=== PATIENT | female | born 2000 | race Caucasian/White ===

== ENCOUNTER → 2018-03-31 10:09 | Outpatient (CLI) | payer MEDICAID, SELFPAY ==
--- NOTE | 2018-03-31 10:12 | RAD_ITS ---
STUDY: X-RAY - RIGHT KNEE REASON FOR EXAM: Chronic anterior knee pain. TECHNIQUE: 4 view(s) of the knee. COMPARISON: Radiographs 02/13/2014. FINDINGS: Normal visualized distal femur. Normal visualized proximal tibia and fibula. Normal proximal tibiofibular articulation. Normal medial femorotibial compartment. Normal lateral femorotibial compartment. Normal patellofemoral articulation. The soft tissue structures are unremarkable. RAD/Knee 4 or More Views IMPRESSION: Normal x-ray examination of the right knee. Electronically Signed: Kian Stephenson MD at 16:00 EDT Tel , Service support ,
== END ==
PROVIDERS: Family Provider Pediatrics; PCP Pediatrics; Visit Provider Orthopaedic Surgery
DX: M25.561 Pain in right knee (principal)
CPT/HCPCS: 73564

== ENCOUNTER 2018-04-28 11:00 | Outpatient (RCR) | payer MEDICAID, SELFPAY ==
--- NOTE | 2018-04-06 11:03 | HP.PTEVAL ---
Patient's Visit Information CHRISTINA FREIRE is a 18 year old F referred to Physical Therapy by Delores Pina DO with a diagnosis of PFS bilateral /Inferior pole patella tendinosis. Date of Evaluation: 04/06/18 Physical Therapist: Dino Lucio PT, - Visit Plan Frequency: 2x /Week Duration: 4 Weeks Plan: GRADED PROGRESSION PRE'S QUAD/HAMS/HIP OPEN/CLOSED,PROPRIOCEPTION,US/CP. FLEXABLITY - Subjective Subjective: This 18 y/o female presents to physical therapy with PFS bilateral inferior patella tendinosis.This patient has h/o patella pain about one year with prior PT. Symptoms worse with standing,squatting,stairs ,kneeling. Pain located on inferior pole right worse than left. Denies parathesia/tingling. Patient sleeping okay. Patient does pain one step at time. Right knee ocassionally pops and clicks. VOCATION: [employer]. SOCIAL: single - Pain Right Knee Pain Intensity (Out of 10): 6 Pain Intensity Range: 10 - Objective POSTURE: patella kyra,genu recurvatum. PALAPTION: tender patella tendon. NEURO: intcat. GAIT: normal aron. AROM: knee flexion 0-140 degrees supine. FLEXABLITY: quads/hams /I-T BAND WFL. MMT: quads/VMO right 4-/5,left 4/5 hams 4/5,hip abd/add/ext 4-/5. PROPRIOCEPTION: decreased. PATELLA TRACKING: lateral [facility] affect - Special Tests R Knee Jony - Meniscus: Negative R Knee Apley - Meniscus: Negative R Knee Valgus - MCL: Negative R Knee Varus - LCL: Negative R Knee Patellar Apprehension - PFS: Positive R Knee Patellar Grind - PFS: Positive R Knee Medial Patellar Plica - Plica Syndrome: Negative L Knee Jony - Meniscus: Negative L Knee Patellar Apprehension - PFS: Positive L Knee Patellar Grind - PFS: Positive L Knee Medial Patellar Plica - Plica Syndrome: Negative - Goals Goal 1:: Patient to be Independant with HEP Goal Time Frame: 4-6 Weeks Goal 2:: Patient to decrease pain by 60% or greater for function ADLS Goal Time Frame: 4-6 Weeks Goal 3:: Patient increase strength quads/VMO to 4/5 to improve function and patella function Goal Time Frame: 4-6 Weeks Goal 4:: Patient be able to perform stairs,squatting ,ADL'S with min to no limitation Goal Time Frame: 4-6 Weeks Goal 5:: Improve proprioception and motor control to improve function Goal Time Frame: 4-6 Weeks - Rehabilitation Potential Physical Therapy Diagnosis: This patient has bilateral patella femoral syndrome with weakness quads/pain patella tendon,poor tracking with popping affects function with stairs,squats thus benifit from skilled PT Rehabilitation Potential: Good - Anticipated Interventions Patient/Client Instruction: Educate patient on: Condition, Plan of Care For the Purpose of:: To decrease pain, To improve muscle performance and motor function, To improve ability to perform ADL's, To increase tolerance to activity/condition/position, To improve ability of physical actions for home/community/work/leisure, To improve health of tissue, To decrease soft tissue restriction, To increase flexibility/ROM, To improve health and function, To improve ability to perform tasks related to life management Therapeutic Exercise to Include: Strength training, Postural training, Flexibilty training Comment: PRE HIP/KNEE For the Purpose of:: To decrease pain, To improve muscle performance and motor function, To increase tolerance to activity/condition/position, To improve performance and independence with ADL's, To improve ability of physical actions for home/community/work/leisure, To improve health of tissue, To decrease soft tissue restriction, To improve health and function, To improve ability to perform tasks related to life management TENS: Yes IF ES: Yes Cryotherapy (ice pack, ice massage): Yes Thermo therapy (hot pack): Yes Ultrasound (thermal/non thermal): Yes For the Purpose of:: To decrease pain, To increase ROM, To improve muscle performance and motor function, To increase tolerance to activity/condition/position, To improve ability of physical actions for home/community/work/leisure, To improve health of tissue, To decrease soft tissue restriction, To increase flexibility/ROM, To improve ability to perform tasks related to life management Thank you for the opportunity to evaluate your patient. For Medicare and Medicare HMO plans, please review the plan of care and approve it. It will need to be FAXED BACK to us at [phone] for Medicare purposes. Please let me know if there are questions or concerns regarding this plan of care. Physician Signature: Date:
--- NOTE | 2018-08-15 14:06 | HP.PT.NRP ---
HP - Discharge Summary (1) - Patient Information CHRISTINA FREIRE was seen in my office for initial evaluation on 04/06/18. The following Plan of Care was established for this patient: Initial Frequency: 2x /Week Initial Duration: 4 Weeks - Anticipated Interventions Patient/Client Instruction: Educate patient on: Condition, Plan of Care For the Purpose of:: To decrease pain, To improve muscle performance and motor function, To improve ability to perform ADL's, To increase tolerance to activity/condition/position, To improve ability of physical actions for home/community/work/leisure, To improve health of tissue, To decrease soft tissue restriction, To increase flexibility/ROM, To improve health and function, To improve ability to perform tasks related to life management Therapeutic Exercise to Include: Strength training, Postural training, Flexibilty training For the Purpose of:: To decrease pain, To improve muscle performance and motor function, To increase tolerance to activity/condition/position, To improve performance and independence with ADL's, To improve ability of physical actions for home/community/work/leisure, To improve health of tissue, To decrease soft tissue restriction, To improve health and function, To improve ability to perform tasks related to life management TENS: Yes IF ES: Yes Cryotherapy (ice pack, ice massage): Yes Thermo therapy (hot pack): Yes Ultrasound (thermal/non thermal): Yes For the Purpose of:: To decrease pain, To increase ROM, To improve muscle performance and motor function, To increase tolerance to activity/condition/position, To improve ability of physical actions for home/community/work/leisure, To improve health of tissue, To decrease soft tissue restriction, To increase flexibility/ROM, To improve ability to perform tasks related to life management This patient was last seen in our office 04/28/18. Pertinent comments regarding their Physical therapy will appear below: Patient seen for patella tendonitis focusing on strengthening ,proprioception. Patient met goals thus is d/c. At this point I will be discontinuing this patient from physical therapy. I would be happy to see this patient again in the future if found appropriate by the physician. Thank you! Dino Lucio, PT,
== END 2018-04-28 19:00 | disposition home or self-care (01) ==
LOC: PT 11:00
PROVIDERS: Family Provider Pediatrics; PCP Pediatrics; Visit Provider Orthopaedic Surgery
DX: M22.2X2 Patellofemoral disorders, left knee (principal); M22.2X1 Patellofemoral disorders, right knee; M76.50 Patellar tendinitis, unspecified knee
CPT/HCPCS: 97110; 97161

== ENCOUNTER → 2020-02-20 13:40 | Outpatient (CLI) | payer MEDICAID, SELFPAY ==
[2020-02-20 13:13] VITALS: BMI 36.1
[2020-02-20 15:10] LABS: HIV - WCH Non-Reactive (Nonreactive)
[2020-02-22 01:57] LABS: Rapid Plasmin Reagin (RPR) NONREACTIVE (NONREACTIVE)
[2020-02-23 09:07] LABS: HCV Quant. RNA PCR HCV Not Detected IU/mL (.)
[2020-02-23 13:22] LABS: HSV 1 IgG < 0.91 index (0.00-0.90)
== END ==
PROVIDERS: PCP Pediatrics; Referring Provider Nurse Practitioner Women's Health; Visit Provider Nurse Practitioner Women's Health
DX: Z11.3 Encounter for screening for infections with a predominantly sexual mode of transmission (principal)
CPT/HCPCS: 36415; 86592; 86695; 86696; 86703; 87522

== ENCOUNTER → 2020-03-05 08:27 | Outpatient (CLI) | payer MEDICAID, SELFPAY ==
[2020-03-05 08:26] VITALS: BMI 35.2
--- NOTE | 2020-03-05 08:28 | RAD_ITS ---
STUDY: X-RAY - LEFT KNEE REASON FOR EXAM: Bilateral knee pain, no specific injury. TECHNIQUE: 4 view(s) of the knee. COMPARISON: None. FINDINGS: Normal visualized distal femur. Normal visualized proximal tibia and fibula. Normal proximal tibiofibular articulation. Normal medial femorotibial compartment. Normal lateral femorotibial compartment. Normal patellofemoral articulation. The soft tissue structures are unremarkable. RAD/Knee 4 or More Views IMPRESSION: Normal x-ray examination of the left knee. Electronically Signed: Kian Stephenson MD at 10:48 EDT Tel , Service support ,
--- NOTE | 2020-03-05 08:28 | RAD_ITS ---
STUDY: X-RAY - RIGHT KNEE REASON FOR EXAM: Bilateral knee pain, no specific injury. TECHNIQUE: 4 view(s) of the knee. COMPARISON: Radiographs 03/31/2018. FINDINGS: Normal visualized distal femur. Normal visualized proximal tibia and fibula. Normal proximal tibiofibular articulation. Normal medial femorotibial compartment. Normal lateral femorotibial compartment. Normal patellofemoral articulation. The soft tissue structures are unremarkable. RAD/Knee 4 or More Views IMPRESSION: Normal x-ray examination of the right knee. Electronically Signed: Kian Stephenson MD at 10:53 EDT Tel , Service support ,
== END ==
PROVIDERS: PCP Pediatrics; Referring Provider Orthopaedic Surgery; Visit Provider Orthopaedic Surgery
DX: M25.561 Pain in right knee (principal); M25.562 Pain in left knee
CPT/HCPCS: 73564

== ENCOUNTER 2020-03-25 11:00 | Outpatient (RCR) | payer MEDICAID, SELFPAY ==
[2020-03-05 08:26] VITALS: BMI 35.2
--- NOTE | 2020-03-06 11:54 | HP.PTEVAL_ITS ---
Patient's Visit Information CHRISTINA FREIRE is a 20 year old F referred to Physical Therapy by Dr. Delores Pina DO with a diagnosis of Bilateral Knee pain and Right Achilles Tendonitis. Date of Evaluation: 03/06/20 Physical Therapist: Paola Steiner DPT - Visit Plan Frequency: 2x /Week Duration: 3 Weeks Plan: Focus on LE and core strength/stabilization- US as needed. HEP Given 03/06: Bridge with SLR, clams, plank, step up, step down, HS stretch, Gastroc stretch - Subjective Patient reports that her knees are bothering her- right is worse than left. They have been bothering her for years. Saw Dr. Pina who took x-rays and told her she needs to strengthen her knees. She is having right ankle pain as well- needs a home exercise program to be able to do at home. Work: [employer]- she is is walking, standing- wearing unsupportive shoes. Pain is located along the entire patella- pain radiates to the ankle on the right blake- the left does bother her down the leg. Worst: 9/10 Agg: on it for to long without cici ing a break (15 minutes) Best: 0/10 Eases: sleep, sitting down. Sleep: not disturbed. Did not have anything that flared her knees but when she was pulling carts she would hit the back of her ankle and it would bruise (6 months). Does have N/T in the along the achilles. Feels like her knees have been hurting worse as she is on them more for work. PMHx: none Meds: none. - Objective Posture: FH, RS- can correct with verbal cues but does not maintain. Gait: no deviation noted. Stairs: asc/desc 8 recip with 1 HR- asc uses rail for propulsion and desc is uncontrolled. HR/TR: able with UE A. SLS: unable without UE A. Palpation: tender along medial and lateral . Observation: no swelling noted bilaterally. ROM: 0-120 bilateral knees. Strength: Ankle: 5/5, Knee: 4+/5, Hip: 4/5 throughout Core: poor. Flex:HS: mild, Gastroc: mod. - Goals Goal 1:: Patient will be I with HEP and progression Goal Time Frame: 4-6 Weeks Goal 2:: Patient will SLS for 30 sec without LOB Goal Time Frame: 4-6 Weeks Goal 3:: Patient will maintain proper posture t/o tx session to demo increased core s/s Goal Time Frame: 4-6 Weeks Goal 4:: Patient will report 0/10 pain for 1 week Goal Time Frame: 4-6 Weeks Goal 5:: Patient will demo 5/5 strength in LE Goal Time Frame: 4-6 Weeks - Rehabilitation Potential Physical Therapy Diagnosis: Patient presents with hypomobility- she has decreased activitiy tolerance- she demo's decreased strength, flex and muscular endurance leading to poor posture and increased pain with ADL and work related tasks Rehabilitation Potential: Fair - Anticipated Interventions Patient/Client Instruction: Educate patient on: Benefits of Fitness Program Therapeutic Exercise to Include: Strength training, Endurance training, Balance training, Coordination, Agility training, Body mechanics, Postural training, Flexibilty training, Gait and locomotor training, Neuromotor development, Passive ROM, Active ROM, Dynamic Lumbar Stabilization, Scapular Strength/Sta bilization For the Purpose of:: To improve muscle performance and motor function TENS: Yes Cryotherapy (ice pack, ice massage): Yes Thermo therapy (hot pack): Yes Ultrasound (thermal/non thermal): Yes For the Purpose of:: To decrease pain Thank you for the opportunity to evaluate your patient. For Medicare and Medicare HMO plans, please review the plan of care and approve it. It will need to be FAXED BACK to us at [phone] for Medicare purposes. For Medicare only, by signing this I certify the plan of care. Please let me know if there are questions or concerns regarding this plan of care. Physician Signatu re: Date:
--- NOTE | 2020-03-25 11:40 | HP.PTDCSUM ---
It has been my pleasure to treat CHRISTINA FREIRE referred by Dr. Delores Pina DO, with the diagnosis of Bilateral Knee pain and Right Achilles Tendonitis for a total of 5 visit(s). Discharge Date: Please see the following information for a summary of their discharge status. Subjective: Her knees are better but not great- feels like she can do them independently and does not need therapy. RLE Pain Intensity (Out of 10): 4 LLE Pain Intensity (Out of 10): 1 % Improvement: 60 Objective/Function: Posture: FH, RS- can correct with verbal cues but does not maintain. Gait: no deviation noted. Stairs: asc/desc 8 recip no HR desc is uncontrolled. HR/TR: able with UE A. SLS: 30 sec each side mild imbalance. Palpation: tender along medial and lateral . Observation: no swelling noted bilaterally. ROM: 0-120 bilateral knees. Strength: Ankle: 5/5, Knee: 5/5, Hip: 4+/5 throughout Core: poor. Flex:HS: mild, Gastroc: mod. Goal 1:: Patient will be I with HEP and progression Goal Progress: Goal Met Goal 2:: Patient will SLS for 30 sec without LOB Goal Progress: Goal Met Goal 3:: Patient will maintain proper posture t/o tx session to demo increased core s/s Goal 4:: Patient will report 0/10 pain for 1 week Goal Progress: Progressing Goal 5:: Patient will demo 5/5 strength in LE Goal Progress: Progressing Plan: Discharge to I HEP If there are questions or concerns regarding this patient's physical therapy, please feel free to call me at [phone]. Thank you for the referral of this patient. Sincerely, Paola Steiner DPT
== END 2020-03-25 14:06 | disposition home or self-care (01) ==
LOC: PT 11:00
PROVIDERS: PCP Pediatrics; Referring Provider Orthopaedic Surgery; Visit Provider Orthopaedic Surgery
DX: M76.61 Achilles tendinitis, right leg (principal); M22.2X1 Patellofemoral disorders, right knee; M22.2X2 Patellofemoral disorders, left knee
CPT/HCPCS: 97035; 97110; 97161; 97164

== ENCOUNTER → 2020-04-10 | Outpatient (CLI) | payer MEDICAID, SELFPAY ==
[2020-04-10 10:26] VITALS: BMI 35.2
[2020-04-10 17:37] LABS: Chlamydia Trachomatis by PCR Negative (Negative); Neisserai gonorrhoeae by PCR Negative (Negative); Probe Check PASS; Sample Adequacy Control PASS; Specimen Processing Control PASS
[2020-04-15 17:36] LABS: HPV Reflexed? NOT INDICATED
== END | disposition home or self-care (01) ==
LOC: LABSPEC 13:15
PROVIDERS: PCP Pediatrics; Referring Provider Nurse Practitioner Women's Health; Visit Provider Nurse Practitioner Women's Health
DX: Z11.3 Encounter for screening for infections with a predominantly sexual mode of transmission (principal); Z12.4 Encounter for screening for malignant neoplasm of cervix
CPT/HCPCS: 87491; 87591; 88175; G0145

== ENCOUNTER 2021-04-25 23:33 | Emergency (ER) | payer MEDICAID, SELFPAY ==
[2020-04-10 10:26] VITALS: BMI 35.2
[2021-04-25 23:36] VITALS: BP 128/84; PULSE 114; RESP 26; TEMP 36.7; O2SAT 100; BMI 31.2
--- NOTE | 2021-04-26 01:32 | ED.RN ---
pt states she does not take medications daily for anxiety, states she was having issues with her asthma and that caused her anxiety to flare up. she doesn't see anybody for her anxiety and needs a refill on her inhaler.
[2021-04-26 01:36] VITALS: BP 99/60; PULSE 65; RESP 18; O2SAT 99
--- NOTE | 2021-04-26 01:36 | EX.ED.DYSGE1 ---
HPI History of Present Illness Chief Complaint: Anxiety Narrative Narrative: Patient states earlier she started having increased asthma symptoms as she was using her crutches to walk outdoors long distance relatively, she has Achilles tendinitis and plantar fasciitis; during this her asthma started flaring up, and continued, causing her to feel worse and given her anxiety. EMS was called, they gave her oxygen and transported her. On my evaluation now she feels back to normal. She has an albuterol inhaler but found out when she was symptomatic that it is and empty. Weather changes lately have been triggering symptoms off and on. No recent cough, congestion, fevers, chills. PFSH PFS Medical History Anxiety Asthma Asthma Home Medications albuterol sulfate 5 mg/mL(0.5 %) solution for nebulization 2.5 mg INHALATION TID-QID PRN 07/13/18 [History Last Taken Unknown] albuterol sulfate [Ventolin HFA] 1 - 2 puff INHALATION Q4H PRN PRN #1 inhaler 04/26/21 [Rx Last Taken Unknown] Allergy/AdvReac Type Severity Reaction Status Date / Time No Known Allergies Allergy Verified 04/25/21 23:36 Family History Grandmother Breast cancer Social History adopted: No housing: house number of children: 0 current occupational status: employed current occupation: [employer] sexually active: Yes Smoking Status: Never smoker second hand exposure: Yes alcohol intake: current alcohol intake frequency: holidays/special occasions only substance use type: does not use seatbelt use: always do you feel safe at home: Yes ROS ROS ED Constitutional Constitutional ED: Denies chills or fever(s) Eyes Eyes: Denies change in vision or diplopia ENT ENT ED: Denies rhinorrhea or sore throat Cardiovascular Cardiovascular: Denies chest pain or palpitations Respiratory/Chest Respiratory/Chest: Reports as per HPI, dyspnea and wheezing; Denies cough Gastrointestinal Gastrointestinal: Denies abdominal pain, diarrhea, nausea or vomiting Genitourinary Genitourinary ED: Denies dysuria or hematuria Musculoskeletal Musculoskeletal: Denies back pain or neck pain Integumentary Denies abscess or rash Neurologic Neurologic: Denies headache(s), paresthesias or weakness Psychiatric Psychiatric: Reports anxiety; Denies suicidal thoughts EXAM Physical Exam Const Vital Signs: 04/25/21 23:36 Temperature 98.0 F Temperature Source Temporal Pulse Rate 114 H Respiratory Rate 26 H Blood Pressure 128/84 H Blood Pressure Mean 98 Pulse Ox 100 Oxygen Delivery Method Room Air Positive well nourished, well developed and obese Constitutional Narrative: Well-appearing no distress conversive in full sentences, not tachypneic General Appearance ED: well developed and NAD Nutritional Appearance: obese HEENT Reports moist mucous membranes normocephalic and atraumatic Eyes PERRL and EOMs intact bilaterally Neck full ROM and supple Resp normal respiratory effort and clear to auscultation bilaterally Cardio regular rate, regular rhythm and no murmurs Back/Spine no CVA tenderness General Back: other FROM Extremity normal to inspection General Extremety ED: Negative for edema, pulses abnormal or tenderness General Extremity: Negative for edema or pulses abnormal Neuro oriented x3, CN's II-XII intact bilaterally and no sensory deficits noted Sensorium / Orientation: awake and alert Motor Exam: strength 5/5 throughout Psych mental status grossly normal, thought process normal, cooperative and affect normal Appearance: grossly normal Attitude: calm Skin no rashes or lesions noted and no wounds MDM MDM MDM Narrative Medical decision making narrative: Patient's lungs are clear, her vital signs are now normal, and she feels much better. She is agreeable to a prescription for an albuterol inhaler and outpatient follow-up, we discussed reasons to return. Discharge Plan Triage Chief Complaint: Anxiety ED Provider: Alberto Conklin Dx/Rx/DC Orders Clinical Impression: Asthma exacerbation, Anxiety attack Instructions: Asthma Prescriptions: New albuterol sulfate [Ventolin HFA] 1 INHALER inhaler 1 - 2 puff inhalation Q4H PRN PRN (Reason: Wheezing) Qty: 1 RF: 0 Continued albuterol sulfate 5 mg/mL solution for nebulization 2.5 mg INHALATION TID-QID PRN (Reason: Shortness Of Breath Or Wheezing) RF: 0 Discontinued methylprednisolone [Methylpred] 4 mg Tablets,Dose Pack See Rx Instructions .ROUTE .COMPLEX RF: 0 Primary Care Provider: Care Physician,No Primary Referrals: Angélica Zelaya [NON-STAFF] - As Needed Care Physician,No Primary [Primary Care Provider] - Disposition Disposition: Home, Self Care
== END 2021-04-26 01:48 | disposition home or self-care (01) ==
PROVIDERS: Emergency Provider Emergency Medicine
DX: J45.901 Unspecified asthma with (acute) exacerbation (principal); F41.1 Generalized anxiety disorder; E66.9 Obesity, unspecified; Z68.31 Body mass index [BMI] 31.0-31.9, adult; M76.60 Achilles tendinitis, unspecified leg; M72.2 Plantar fascial fibromatosis
CPT/HCPCS: 99282

== ENCOUNTER 2021-05-30 16:23 | Emergency (ER) | payer MEDICAID, SELFPAY ==
[2021-05-30 16:26] VITALS: BP 100/68; PULSE 99; RESP 17; TEMP 36.9; O2SAT 98; BMI 35.7
[2021-05-30 16:28] VITALS: BP 100/68; PULSE 99; RESP 17; TEMP 36.9; O2SAT 98
--- NOTE | 2021-05-30 16:59 | EDS_ITS ---
HPI History of Present Illness Chief Complaint: Edema Informant: patient Narrative Narrative: 21-year-old female presents to the emergency room with facial swelling. Patient states that last night she went to bed when she woke this morning she noticed some mild swelling and redness over her right maxillary face. She notes that before she went to bed last night she had some swelling of her eye which has resolved. She denies any dental pain. She denies any airway or swallowing issues. No dry mouth. She states that she is currently recovering from Covid [facility] Medical History Anxiety Asthma Asthma Home Medications albuterol sulfate 5 mg/mL(0.5 %) solution for nebulization 2.5 mg INHALATION TID-QID PRN 07/13/18 [History Last Taken Unknown] albuterol sulfate [Ventolin HFA] 1 - 2 puff INHALATION Q4H PRN PRN #1 inhaler 04/26/21 [Rx Last Taken Unknown] clindamycin HCl [Cleocin HCl] 300 mg PO Q6H #40 capsule 05/30/21 [Rx Last Taken Unknown] Allergy/AdvReac Type Severity Reaction Status Date / Time No Known Allergies Allergy Verified 05/30/21 16:24 Family History Grandmother Breast cancer Social History adopted: No housing: house number of children: 0 current occupational status: employed current occupation: [employer] sexually active: Yes Smoking Status: Never smoker second hand exposure: Yes alcohol intake: current alcohol intake frequency: holidays/special occasions only substance use type: does not use seatbelt use: always do you feel safe at home: Yes ROS ROS ED Constitutional Constitutional ED: Reports sweats; Denies chills or weight loss Eyes Eyes: Denies change in vision or diplopia ENT ENT ED: Reports other Details: See history of present illness ; Denies ear pain, rhinorrhea or sore throat Cardiovascular Cardiovascular: Denies chest pain, orthopnea, palpitations or racing heartbeat Respiratory/Chest Respiratory/Chest: Reports cough; Denies dyspnea or orthopnea Gastrointestinal Gastrointestinal: Denies abdominal pain, diarrhea, nausea or vomiting Genitourinary Genitourinary ED: Denies dysuria, hematuria or urinary frequency Musculoskeletal Musculoskeletal: Denies arthralgias or myalgias Integumentary Denies abscess or rash Neurologic Neurologic: Denies headache(s) or weakness Psychiatric Psychiatric: Denies anxiety, depression, suicidal ideation or suicidal thoughts Endocrine Endocrinology: Denies polydipsia, polyphagia or polyuria Allergic/Immunologic Allergic/Immunologic ED: Denies mouth swelling, tongue swelling or urticaria EXAM Physical Exam Const Vital Signs: 05/30/21 16:26 05/30/21 16:28 Temperature 98.4 F 98.4 F Temperature Source Temporal Temporal Pulse Rate 99 99 Respiratory Rate 17 17 Blood Pressure 100/68 100/68 Blood Pressure Mean 78 78 Pulse Ox 98 98 Oxygen Delivery Method Room Air Room Air Positive well nourished and well developed General Appearance ED: well developed HEENT Reports normocephalic, head/scalp atraumatic, TM's clear and moist mucous membranes HEENT Narrative: There is no focal dental decay or tenderness on tooth percussion. The right maxillary face demonstrates mild soft tissue swelling and slight erythema. Tympanic Membrane ED: Yes TM's clear Eyes PERRL and EOMs intact bilaterally Neck no lymphadenopathy, supple and no JVD Resp normal respiratory effort and clear to auscultation bilaterally Cardio regular rate, regular rhythm and no murmurs GI normal to inspection, nondistended, normoactive bowel sounds and non-tender Palpation: soft Back/Spine no CVA tenderness and normal ROM Extremity normal to inspection General Extremety ED: Negative for edema General Extremity: Negative for edema Neuro oriented x3 and CN's II-XII intact bilaterally Sensorium / Orientation: alert Motor Exam: strength 5/5 throughout Psych mental status grossly normal Mood & Affect: Negative for depressed or tearful Skin no rashes or lesions noted and no wounds MDM MDM MDM Narrative Medical decision making narrative: Patient advised this may be coming from a dental source and to monitor for any intraoral swelling or dental pain. In the interim we will place her on clindamycin which should give us some skin coverage but also oral olga coverage. Discharge Plan Triage Chief Complaint: Edema ED Provider: Dalton Chaney Dx/Rx/DC Orders Clinical Impression: Cellulitis of face Instructions: ED Cellulitis, Facial Prescriptions: New clindamycin HCl [Cleocin HCl] 300 MG capsule 300 mg PO Q6H Qty: 40 RF: 0 No Action albuterol sulfate 5 mg/mL solution for nebulization 2.5 mg INHALATION TID-QID PRN (Reason: Shortness Of Breath Or Wheezing) RF: 0 albuterol sulfate [Ventolin HFA] 1 INHALER inhaler 1 - 2 puff inhalation Q4H PRN PRN (Reason: Wheezing) Qty: 1 RF: 0 Primary Care Provider: Care Physician,No Primary Referrals: Driss Kendall MD [STAFF PHYSICIAN] - 1 Week if not improving Care Physician,No Primary [Primary Care Provider] - Disposition Disposition: Home, Self Care
== END 2021-05-30 17:25 | disposition home or self-care (01) ==
LOC: ED 17:15
PROVIDERS: Emergency Provider Emergency Medicine
DX: L03.211 Cellulitis of face (principal); J45.909 Unspecified asthma, uncomplicated
CPT/HCPCS: 99282

== ENCOUNTER 2022-07-28 16:47 | Outpatient (CLI) | payer MEDICAID, SELFPAY ==
[2022-07-31 04:07] LABS: Chlamydia By Nucleic Acid AMP Negative (Negative)
[2022-07-31 11:35] LABS: Gonococcus By Nucleic Acid AMP Negative (Negative)
== END 2022-07-28 23:59 | disposition home or self-care (01) ==
LOC: LABSPEC 16:48
PROVIDERS: Visit Provider Nurse Practitioner Women's Health
DX: Z11.3 Encounter for screening for infections with a predominantly sexual mode of transmission (principal)
CPT/HCPCS: 87491; 87591

== ENCOUNTER 2022-08-07 14:00 | Emergency (ER) | payer MEDICAID, SELFPAY ==
[2022-08-07 14:01] VITALS: BP 107/64; PULSE 71; RESP 18; TEMP 36.6; O2SAT 100; BMI 30.9
--- NOTE | 2022-08-07 15:27 | EDS_ITS ---
HPI History of Present Illness Chief Complaint: Dental Narrative Narrative: 22-year-old female presenting with dental pain. She states she had 2 wisdom teeth removed as well as another tooth on the left lower mandible and one upper tooth on the right. She states this was done on last . This was done by her dentist in [place]. She finished a course of ibuprofen 600 mg which was prescribed to her 3 times daily. She also finished of prescription for amoxicillin. She states that over the last couple of days after running out of this she has had intermittent facial swelling. She states the facial swelling appears to be in the morning. This resolves. No difficulty swallowing or breathing but states that it hurts to chew hard food. She is eating a soft diet. She is not had any fever, chills, nausea, vomiting. [facility] Medical History Anxiety Asthma Asthma Home Medications fluticasone propionate 110 mcg/actuation HFA aerosol inhaler gm inhalation 11/28/21 [History Last Taken Unknown] sertraline 50 mg tablet 75 mg PO DAILY 07/28/22 [History Last Taken Unknown] trazodone 50 mg tablet 50 mg PO DAILY 07/28/22 [History Last Taken Unknown] lidocaine HCl 2 % mucosal solution (Lidocaine Viscous) 1 applic mucous membrane TID PRN pain #100 mL 08/07/22 [Rx Last Taken Unknown] naproxen 500 mg tablet (Naprosyn) 500 mg PO BID PRN pain #20 tabs 08/07/22 [Rx Last Taken Unknown] Allergy/AdvReac Type Severity Reaction Status Date / Time No Known Allergies Allergy Verified 08/07/22 14:00 Family History Grandmother Breast cancer Social History adopted: No housing: house number of children: 0 current occupational status: employed current occupation: [employer] sexually active: Yes Smoking Status: Never smoker second hand exposure: Yes alcohol intake: current alcohol intake frequency: holidays/special occasions only substance use type: does not use seatbelt use: always do you feel safe at home: Yes ROS ROS ED Constitutional Constitutional ED: Denies chills or fever(s) Eyes Eyes: Denies change in vision ENT ENT ED: Reports other Details: Dental pain ; Denies rhinorrhea or sore throat Cardiovascular Cardiovascular: Denies chest pain or palpitations Respiratory/Chest Respiratory/Chest: Denies cough or dyspnea Gastrointestinal Gastrointestinal: Denies abdominal pain or constipation Genitourinary Genitourinary ED: Denies dysuria or hematuria Musculoskeletal Musculoskeletal: Denies arthralgias, back pain or neck pain Integumentary Denies abscess or Abrasions Neurologic Neurologic: Reports headache(s); Denies paresthesias Psychiatric Psychiatric: Denies anxiety or depression EXAM Physical Exam Const Vital Signs: 08/07/22 14:01 Temperature 97.8 F Temperature Source Temporal Pulse Rate 71 Respiratory Rate 18 Blood Pressure 107/64 Blood Pressure Mean 78 Pulse Ox 100 Oxygen Delivery Method Room Air Positive well nourished General Appearance ED: NAD HEENT HEENT Narrative: Bilateral wisdom teeth are extracted. Also tooth #19 was extracted. No evidence of swelling, erythema, drainage. Posterior oropharynx patent without stridor. Tongue is normal. No sublingual edema. No submandibular edema. No lymphadenopathy. Face is symmetric. Patient tolerating own secretions. No trismus Face and Sinus: sinuses nontender Mouth ED: Yes oral and palatal mucosa normal, Yes lips normal and Yes tongue normal Mouth: oral and palatal mucosa normal, lips normal and tongue normal Throat: posterior oropharynx normal Resp normal respiratory effort Cardio regular rate and regular rhythm Neuro oriented x3 and CN's II-XII intact bilaterally Sensorium / Orientation: alert Psych mental status grossly normal Skin no rashes or lesions noted MDM MDM MDM Narrative Medical decision making narrative: Patient presenting with intermittent swelling in the face which is worse in the morning. No systemic signs or symptoms. Her face is symmetric here on examination. I can see where her teeth were extracted and there is no evidence of dry socket there is no evidence of infection. Patient talking normally. She has no muffled voice, trismus, no lymphadenopathy or submandibular swelling. Tongue is normal and she is tolerating her own secretions. She is out of ibuprofen and we discussed using ibuprofen versus Naprosyn and she wants to try Naprosyn. I counseled her she can alternate Tylenol with this. She will be given viscous lidocaine to swish and spit as needed. She is to follow-up with her dentist. I do not believe she needs antibiotic today. Impression: 1. Postop dental pain Lab Data Attestation: I reviewed the patient's lab results. Discharge Plan Triage Chief Complaint: Dental ED Provider: Kyler Harris Dx/Rx/DC Orders Instructions: ED Dental Pain Prescriptions: New lidocaine HCl [Lidocaine Viscous] 2 % solution 1 applic mucous membrane TID PRN (Reason: pain) Qty: 100 0RF naproxen [Naprosyn] 500 mg tablet 500 mg PO BID PRN (Reason: pain) Qty: 20 0RF No Action Flovent HFA 110 mcg/actuation HFA aerosol inhaler inhalation sertraline 50 mg tablet 75 mg PO DAILY trazodone 50 mg tablet 50 mg PO DAILY Primary Care Provider: Karol Steel NP Referrals: Care Physician,No Primary [Non-Staff] - Disposition Disposition: Home, Self Care
[2022-08-07] MEDS: Naproxen 500 MG Tablet PO (15:42)
[2022-08-07 16:19] VITALS: BP 134/78; PULSE 78; RESP 18; TEMP 36.9; O2SAT 99
== END 2022-08-07 16:20 | disposition home or self-care (01) ==
PROVIDERS: Emergency Provider Student in an Organized Health Care Education/Training Program; PCP Nurse Practitioner Primary Care; Visit Provider Student in an Organized Health Care Education/Training Program
DX: K08.89 Other specified disorders of teeth and supporting structures (principal); R51.9 Headache, unspecified
CPT/HCPCS: 99283

== ENCOUNTER → 2023-12-23 | Outpatient (CLI) | payer MEDICAID, SELFPAY ==
[2023-12-23 13:05] LABS: hCG Titer Quant., Serum 27 mIU/mL (1-3)
== END | disposition home or self-care (01) ==
PROVIDERS: Referring Provider Obstetrics & Gynecology; Visit Provider Obstetrics & Gynecology
DX: N91.2 Amenorrhea, unspecified (principal)
CPT/HCPCS: 36415; 84702

== ENCOUNTER 2023-12-25 12:41 | Emergency (ER) | payer MEDICAID, SELFPAY ==
[2023-12-25 12:42] VITALS: BP 107/61; PULSE 77; RESP 16; TEMP 36; O2SAT 99; BMI 34.9
--- NOTE | 2023-12-25 13:09 | US_ITS ---
EXAM: US , TRANSVAGINAL CLINICAL INDICATION: vaginal bleeding TECHNIQUE: Real-time endovaginal obstetrical ultrasound of the maternal pelvis and a first trimester with image documentation. Transvaginal imaging was used for better evaluation of the fetus and adnexa. COMPARISON: No relevant prior studies available. FINDINGS: GESTATION: No evidence of intra or extrauterine gestational sac. UTERUS/CERVIX: Uterus measures 8.2 x 5.5 x 4.2 cm. Endometrial thickness of 16 mm. OVARIES: Normal. No mass. The right ovary measures 2.2 x 2.2 x 1.4 cm. The left ovary measures 3.4 x 2.3 x 2.4 cm. FREE FLUID: Physiological amount of free fluid noted within the pelvis. US/Transvaginal w/Preg US IMPRESSION: Thickened endometrium without evidence of an intra or extrauterine gestational sac. Correlate findings with hCG titers and/or follow-up ultrasound in 7-10 days. Electronically Signed: Breezy Darling MD at 14:12 EDT ,
[2023-12-25 13:28] LABS: Absolute Lymphocyte Count 3.77 X10^3/uL (0.83-4.51); Basophil# 0.08 X10^3/uL; Basophil% 0.6 % (0-1); Eosinophil# 0.25 X10^3/uL; Hemoglobin 11.6 g/dL (12.0-15.0); Lymphocyte # 3.77 X10^3/ul (0.83-4.51); Lymphocyte % 29.8 % (19-41); Mean Corp Hgb Conc 32.2 g/dL (32-36); Mean Platelet Vol. 9.8 fl (6.2-12.0); Monocyte# 0.53 X10^3/uL; Monocyte% 4.2 % (0-10); NRBC Flagged by Analyzer 0 % (0-5); Neutrophil # 7.95 X10^3/uL (2.7-7.7); Platelet Count 367 K/mm3 (150-450); RBC Distribution Width CV 13.2 % (11.6-14.6); RBC Distribution Width SD 41.4 fl (35.1-43.9); Red Blood Count 4.14 M/mm3 (4.2-5.4); White Blood Count 12.6 K/mm3 (4.4-11.0)
--- NOTE | 2023-12-25 13:34 | ED.VIS.FEGU ---
HPI <BATOOL Chen - Last Filed: 12/25/23 15:13> HPI - Female History of Present Illness Chief Complaint: Vag Bld, Preg Narrative Narrative: Patient is a 23-year-old female last known menstrual cycle was November 18, 2023, present to the emerged part with some lower abdominal cramping, spotting. Patient's first appointment with her [facility] is January 17, she did receive 2 quantitative hCG lab values in the last 3 days. Patient initial hCG was 27, repeat was 9. This is downtrending. Patient states he does have some lower abdominal cramping. She is here for evaluation [facility] <BATOOL Chen - Last Filed: 12/25/23 15:13> [facility] Medical History (Updated 12/25/23 @ 15:11 by BATOOL Chen) Anxiety Anxiety and depression Asthma Asthma Contact with and (suspected) exposure to other viral communicable diseases URI (upper respiratory infection) Home Medications multivitamin no.47-iron fum 27 mg-folate no.1 1 mg-dha 300 mg capsule (PNV-DHA) 1 cap PO DAILY 12/25/23 [History Last Taken Unknown] nitrofurantoin monohydrate/macrocrystals 100 mg capsule (Macrobid) 100 mg PO Q12H 5 days #10 caps 12/25/23 [Rx Last Taken Unknown] Allergy/AdvReac Type Severity Reaction Status Date / Time No Known Allergies Allergy Verified 12/25/23 12:46 Family History Grandmother Breast cancer Social History adopted: No housing: house number of children: 0 current occupational status: employed current occupation: [employer] sexually active: Yes Smoking Status: Never smoker second hand exposure: Yes alcohol intake: current alcohol intake frequency: holidays/special occasions only substance use type: does not use seatbelt use: always do you feel safe at home: Yes ROS <BATOOL Chen - Last Filed: 12/25/23 15:13> ROS ED ROS Narrative Constitutional: Negative for fever, chills, weight loss, weakness Eyes: Negative for vision loss, vision change, double vision ENT: Negative for any sore throat, ear pain, congestion Cardiovascular: Negative for any chest pain, tightness, palpitations Respiratory: Negative for any cough, sputum production, hemoptysis, dyspnea, dyspnea on exertion, orthopnea Gastrointestinal: Negative for any nausea, vomiting, diarrhea, constipation, blood in stool, blood in vomit. Positive for abdominal cramping : Negative for any urinary frequency, dysuria, retention, blood in urine. Positive vaginal bleeding, spotting Muscle skeletal: Negative for any neck pain, back pain Neurological: Negative for any headache, syncope, dizziness Skin: Negative for any rashes, itching, abrasions, lacerations Psychiatric: Negative for any depression, anxiety, stress, suicidal ideation, homicidal ideation Hematologic: Negative for any excessive bruising, easy bleeding EXAM <BATOOL Chen - Last Filed: 12/25/23 15:13> Physical Exam Narrative Exam Narrative: Vital signs reviewed. HEET: Head normocephalic atraumatic, TMs clear bilaterally. Posterior pharynx is clear, moist mucous membranes. Nares clear bilaterally. Neck: Supple with no lymphadenopathy or tenderness. No signs of meningismus. Cardiac: Regular rate and rhythm no murmurs gallops or rubs, equal peripheral pulses bilaterally. Respiratory: Lungs clear to auscultation bilaterally. No chest tenderness. Abdomen: Soft, nontender, nondistended. No abdominal bruit or pulsatile masses. No hepatosplenomegaly Extremities: No peripheral edema, no signs of gross trauma or deformity. Active full range of motion of all extremities. Neuro: Cranial nerves II through XII intact, no focal neurological deficits. Skin: Clean dry and intact with no rash, purpura, petechiae, vesicles or pustules. Backs/flank: No CVA tenderness, no midline spinal tenderness, no deformity. Psych: Normal mood and affect. No SI, HI or acute psychosis. Const Vital Signs: 12/25/23 12:42 12/25/23 14:42 12/25/23 15:40 Temperature 96.8 F L 98.3 F Temperature Source Temporal Pulse Rate 77 50 L 55 L Respiratory Rate 16 16 16 Blood Pressure 107/61 110/65 104/60 Blood Pressure Mean 76 80 74 Pulse Ox 99 98 98 Oxygen Delivery Method Room Air Room Air <Kamran Fiore MD - Last Filed: 12/25/23 16:12> Physical Exam Const Vital Signs: 12/25/23 12:42 12/25/23 14:42 12/25/23 15:40 Temperature 96.8 F L 98.3 F Temperature Source Temporal Pulse Rate 77 50 L 55 L Respiratory Rate 16 16 16 Blood Pressure 107/61 110/65 104/60 Blood Pressure Mean 76 80 74 Pulse Ox 99 98 98 Oxygen Delivery Method Room Air Room Air [facility] <BATOOL Chen - Last Filed: 12/25/23 15:13> [facility] Lab Data Labs: Laboratory Results - last 24 hr 12/25/23 12/25/23 13:20 13:40 WBC 12.6 H RBC 4.14 L Hgb 11.6 L Hct 36.0 L MCV 87.0 MCH 28.0 MCHC 32.2 RDW Std Deviation 41.4 RDW Coeff of Pura 13.2 Plt Count 367 MPV 9.8 Immature Gran % (Auto) 0.400 Neut % (Auto) 63.0 Lymph % (Auto) 29.8 [place] % (Auto) 4.2 Eos % (Auto) 2.0 Baso % (Auto) 0.6 Absolute Neuts (auto) 8.0 H Absolute Lymphs (auto) 3.77 Nucleated RBC % 0 Sodium 140 Potassium 3.9 Chloride 110 H Carbon Dioxide 27.0 Anion Gap 3 L BUN 7 Creatinine 0.73 Estim Creat Clear Calc 111.17 Est GFR (MDRD) Af Amer 124 Est GFR (MDRD) Non-Af 102 BUN/Creatinine Ratio 9.6 L Glucose 89 Calcium 9.2 Total Bilirubin 0.60 AST 20 ALT 18 Alkaline Phosphatase 82 Total Protein 7.3 Albumin 3.6 Globulin 3.7 Albumin/Globulin Ratio 1.0 Urine Color Yellow Urine Clarity Clear Urine pH 7.0 Ur Specific [place] 1.015 Urine Protein 15 H Urine Glucose (UA) Normal Urine Ketones Negative Urine Occult Blood 250 H Urine Nitrite Negative Urine Bilirubin Negative Urine Urobilinogen Normal Ur Leukocyte Esterase 500 H Urine RBC 0 SEEN Urine WBC 5-10 SEEN Ur Squamous Epith Cells 0-5 SEEN Urine Bacteria 1+ Urine Mucus 0 SEEN Blood Type B NEGATIVE Radiography Diagnostic Testing: Clinical Impression(s) from Imaging Studies Obstetrics Ultrasound 12/25/23 13:09 IMPRESSION: Thickened endometrium without evidence of an intra or extrauterine gestational sac. Correlate findings with hCG titers and/or follow-up ultrasound in 7-10 days. Electronically Signed: Breezy Darling MD at 14:12 EDT , Treatment and Re-Evaluation Narrative: Differential diagnosis includes however is not limited to: Ectopic , threatened miscarriage, early Patient's quantitative on December 23, 2023 was 27, repeat was 9. This is downtrending. Patient received a urinalysis, blood typing, receive a transvaginal ultrasound. Urinalysis will also be ordered to look for any UTI. All radiologic examinations were read, reviewed by the emergency department attending. From these reads, a plan of care will be put in place. At this time, concern for spontaneous . CBC shows a leukocytosis with a white blood count 12.6, hemoglobin 11.6, patient's chemistries are stable. Patient's urinalysis showed 500 leukocytes, 5-10 white blood cells, 1+ bacteria. This to be sent for culture. Patient's transvaginal ultrasound showed thickened endometrium without evidence of intra or extrauterine gestational sac. Correlate with rise hCG titers. Endometrial thickness of 16 mm. No mass in the ovaries. I did speak with [facility], the patient will receive a hCG quantitative test in 2 days which be on Wednesday. I will write her for the order. It will go to Dr. Dickerson. Patient restarted on Macrobid. She is instructed return for any worsening symptoms. All questions answered, patient stable for discharge. At this time, is no evidence of ectopic . I do the patient is actively miscarrying. <Kamran Fiore MD - Last Filed: 12/25/23 16:12> [facility] Narrative Medical decision making narrative: Dr. Fiore: I have personally performed a face to face assessment of the patient and have reviewed the JEANETTE Note. I performed a substantive portion of the visit including all aspects of the following. My ku findings include: History is G1, P0 presents with vaginal bleeding and cramping. 2 days ago had beta-hCG drawn as outpatient, received call from [facility] to have it drawn again today. Exam is afebrile. Vital signs noted. Regular rate and rhythm. Lungs clear to auscultation bilaterally. Abdomen soft and nontender with normoactive bowel sounds. Patient declined pelvic examination. Medical Decision Making: I reviewed the patient's outpatient laboratory work and she had a beta-hCG of 27. I reviewed her outpatient laboratory work from today and her hCG is only 7 which is downtrending. Concern is for miscarriage versus laboratory error. Check ultrasound. I reviewed the ultrasound report which confirms that there is no intrauterine at this time. Additionally, there is thickened endometrium. However, her beta hCG is extremely low. Check labs. Check UA. Discussed with Dr. Dickerson with obstetrics and gynecology. Patient is to have another repeat beta-hCG to see if it continues to downtrend. Importance of follow-up with [facility] was stressed. Return instructions were reviewed. Disposition is discharged in stable condition. Other additions or changes: [None] History & Record Review Discussion w/independent historian: Patient Lab Data Attestation: I reviewed the patient's lab results. Labs: Laboratory Results - last 24 hr 12/25/23 12/25/23 13:20 13:40 WBC 12.6 H RBC 4.14 L Hgb 11.6 L Hct 36.0 L MCV 87.0 MCH 28.0 MCHC 32.2 RDW Std Deviation 41.4 RDW Coeff of Pura 13.2 Plt Count 367 MPV 9.8 Immature Gran % (Auto) 0.400 Neut % (Auto) 63.0 Lymph % (Auto) 29.8 [place] % (Auto) 4.2 Eos % (Auto) 2.0 Baso % (Auto) 0.6 Absolute Neuts (auto) 8.0 H Absolute Lymphs (auto) 3.77 Nucleated RBC % 0 Sodium 140 Potassium 3.9 Chloride 110 H Carbon Dioxide 27.0 Anion Gap 3 L BUN 7 Creatinine 0.73 Estim Creat Clear Calc 111.17 Est GFR (MDRD) Af Amer 124 Est GFR (MDRD) Non-Af 102 BUN/Creatinine Ratio 9.6 L Glucose 89 Calcium 9.2 Total Bilirubin 0.60 AST 20 ALT 18 Alkaline Phosphatase 82 Total Protein 7.3 Albumin 3.6 Globulin 3.7 Albumin/Globulin Ratio 1.0 Urine Color Yellow Urine Clarity Clear Urine pH 7.0 Ur Specific [place] 1.015 Urine Protein 15 H Urine Glucose (UA) Normal Urine Ketones Negative Urine Occult Blood 250 H Urine Nitrite Negative Urine Bilirubin Negative Urine Urobilinogen Normal Ur Leukocyte Esterase 500 H Urine RBC 0 SEEN Urine WBC 5-10 SEEN Ur Squamous Epith Cells 0-5 SEEN Urine Bacteria 1+ Urine Mucus 0 SEEN Blood Type B NEGATIVE Radiography Diagnostic Testing: Clinical Impression(s) from Imaging Studies Obstetrics Ultrasound 12/25/23 13:09 IMPRESSION: Thickened endometrium without evidence of an intra or extrauterine gestational sac. Correlate findings with hCG titers and/or follow-up ultrasound in 7-10 days. Electronically Signed: Breezy Darling MD at 14:12 EDT , Discharge Plan Triage Chief Complaint: Vag Bld, Preg ED Midlevel Provider: Jone Tracey ED Provider: Kamran Fiore Dx/Rx/DC Orders Clinical Impression: UTI (urinary tract infection), Miscarriage, threatened, early Instructions: Urinary Tract Infections in Women, Miscarriage Threatened Prescriptions: New nitrofurantoin monohyd/m-cryst [Macrobid] 100 mg capsule 100 mg PO Q12H 5 Days Qty: 10 0RF Rx Instructions: must administer with a meal/food No Action PNV-DHA 27 mg iron-1 mg -300 mg capsule 1 cap PO DAILY Primary Care Provider: Care Physician,No Primary Referrals: Sara Olmedo DO [Med Staff - Active Staff] - Care Physician,No Primary [Primary Care Provider] - Activity Restrictions/Additional Instructions: Please follow-up with your repeat hCG quantitative Wednesday. These results need to go to [place] Disposition Disposition: Home, Self Care Discharge Date/Time: 12/25/23 15:41
[2023-12-25 13:43] LABS: Mucous, Urine 0 SEEN /hpf (<or=2+); Red Blood Cells-Urine 0 SEEN /hpf (0-5)
[2023-12-25 13:44] LABS: AST(SGOT) 20 U/L (15-37); Alanine Aminotransfer ALT/SGPT 18 U/L (13-56); Albumin, Serum 3.6 g/dL (3.2-5.0); Alkaline Phosphatase 82 U/L (45-117); Anion Gap 3 (5-15); BUN 7 mg/dL (7-18); BUN/Creat Ratio 9.6 RATIO (10-20); Calcium,Total 9.2 mg/dL (8.5-10.1); Chloride 110 mmol/L (98-107); Creatinine, Serum 0.73 mg/dL (0.55-1.02); EST Glomerular Filtration Rate 102 mL/min (>60); Est Glom Filt Rate - Afr Amer 124 mL/min (>60); Estimated Creatinine Clearance 111.17 ml/min; Globulin 3.7 g/dL (2.2-4.2); Glucose 89 mg/dL (74-106); Potassium 3.9 mmol/L (3.5-5.1); Protein, Total 7.3 g/dL (6.4-8.2); Sodium Level 140 mmol/L (136-145)
[2023-12-25 14:01] LABS: Color, Urine Yellow (Yellow); Glucose, Dipstick Normal (Normal); Ketone-Dipstick Negative (Negative); Leukocyte Esterase-Dipstick 500 /ul (Negative); Nitrite-Dipstick Negative (Negative); Occult Blood-Urine 250 /ul (Negative); Protein-Dipstick 15 mg/dl (Negative); Specific Gravity, Urine 1.015 (1.002-1.030); Urine Bilirubin Dipstick Negative (Negative); Urine Clarity Clear (Clear); Urine Urobilinogen Normal (Normal)
[2023-12-25 14:13] LABS: Bacteria 1+ /hpf (None Seen); Squamous Epithelial Cells - UA 0-5 SEEN /hpf (5-10); White Blood Cells 5-10 SEEN /hpf (0-5)
[2023-12-25 14:42] VITALS: BP 110/65; PULSE 50; RESP 16; O2SAT 98
[2023-12-25] MEDS: Nitrofurantoin Macrocrystals 100 MG Capsule PO (15:25)
[2023-12-25 15:40] VITALS: BP 104/60; PULSE 55; RESP 16; TEMP 36.8; O2SAT 98
== END 2023-12-25 15:41 | disposition home or self-care (01) ==
PROVIDERS: Nurse Practitioner; Emergency Provider Emergency Medicine; Visit Provider Emergency Medicine
DX: O20.0 Threatened abortion (principal); O23.41 Unspecified infection of urinary tract in pregnancy, first trimester; Z3A.00 Weeks of gestation of pregnancy not specified; N91.2 Amenorrhea, unspecified; O99.891 Other specified diseases and conditions complicating pregnancy
CPT/HCPCS: 36415; 76817; 80053; 81001; 84702; 85025; 86900; 86901; 87086; 87088; 99282

== ENCOUNTER → 2023-12-25 | Outpatient (CLI) | payer MEDICAID, SELFPAY ==
[2023-12-25 12:54] LABS: hCG Titer Quant., Serum 9 mIU/mL (1-3)
== END | disposition home or self-care (01) ==
PROVIDERS: Referring Provider Obstetrics & Gynecology; Visit Provider Obstetrics & Gynecology
DX: N91.2 Amenorrhea, unspecified (principal)
CPT/HCPCS: 36415; 84702

== ENCOUNTER → 2023-12-27 | Outpatient (CLI) | payer MEDICAID, SELFPAY ==
[2023-12-27 13:36] LABS: hCG Titer Quant., Serum 2 mIU/mL (1-3)
== END | disposition home or self-care (01) ==
LOC: LAB 11:56
PROVIDERS: Referring Provider Emergency Medicine; Visit Provider Emergency Medicine
DX: O20.0 Threatened abortion (principal); Z3A.00 Weeks of gestation of pregnancy not specified
CPT/HCPCS: 36415; 84702

== ENCOUNTER → 2024-01-18 | Outpatient (CLI) | payer MEDICAID, SELFPAY ==
[2024-01-18 14:31] LABS: HIV - WCH Non-Reactive (Nonreactive); Hepatitis C Antibody Non-Reactive (Nonreactive); Syphilis Antibodies Non-reactive
[2024-01-20 05:07] LABS: HSV 1 IgG < 0.91 index (0.00-0.90); HSV 2 IgG 4.18 index (0.00-0.90)
[2024-01-21 05:07] LABS: Chlamydia By Nucleic Acid AMP Negative (Negative); Gonococcus By Nucleic Acid AMP Negative (Negative)
[2024-01-24 16:07] LABS: HPV Reflexed? NOT INDICATED
== END | disposition home or self-care (01) ==
PROVIDERS: Referring Provider Nurse Practitioner Women's Health; Visit Provider Nurse Practitioner Women's Health
DX: Z11.3 Encounter for screening for infections with a predominantly sexual mode of transmission (principal); Z12.4 Encounter for screening for malignant neoplasm of cervix; Z20.2 Contact with and (suspected) exposure to infections with a predominantly sexual mode of transmission
CPT/HCPCS: 36415; 86695; 86696; 86703; 86780; 86803; 87491; 87591; 88175; G0145

== ENCOUNTER → 2024-03-31 | Outpatient (CLI) | payer MEDICAID, SELFPAY ==
[2024-03-31 15:55] LABS: hCG Titer Quant., Serum 5 mIU/mL (1-3)
== END | disposition home or self-care (01) ==
LOC: LAB 13:25
PROVIDERS: Referring Provider Obstetrics & Gynecology; Visit Provider Obstetrics & Gynecology
DX: O09.299 Supervision of pregnancy with other poor reproductive or obstetric history, unspecified trimester (principal); Z3A.00 Weeks of gestation of pregnancy not specified
CPT/HCPCS: 36415; 84702

== ENCOUNTER → 2024-04-02 | Outpatient (CLI) | payer MEDICAID, SELFPAY ==
[2024-04-02 13:15] LABS: hCG Titer Quant., Serum 3 mIU/mL (1-3)
== END | disposition home or self-care (01) ==
LOC: LAB 11:48
PROVIDERS: Visit Provider Obstetrics & Gynecology
DX: Z34.90 Encounter for supervision of normal pregnancy, unspecified, unspecified trimester (principal); Z3A.00 Weeks of gestation of pregnancy not specified
CPT/HCPCS: 84703; 36415; 84702

== ENCOUNTER → 2024-04-14 | Outpatient (CLI) | payer MEDICAID, SELFPAY ==
--- NOTE | 2024-04-14 09:04 | US_ITS ---
EXAM: US , TRANSVAGINAL CLINICAL INDICATION: viability TECHNIQUE: Real-time transvaginal obstetrical ultrasound of the maternal pelvis and a first trimester with image documentation. Transvaginal imaging was used for better evaluation of the fetus and adnexa. COMPARISON: 12/25/2023 FINDINGS: GESTATION: No IUP is identified. PLACENTA/AMNIOTIC FLUID: Cannot be adequately evaluated due to the early gestational age. UTERUS/CERVIX: The cervix is closed. No myometrial mass. The uterus measures 7.7 x 5.2 x 3.8 cm. OVARIES: No significant abnormality. No mass. The right ovary measures 1.6 x 1.4 x 2.4 cm. The left ovary measures 2.3 x 2.4 x 2.0 cm. FREE FLUID: No free fluid. US/Transvaginal w/Preg US IMPRESSION: No IUP is identified. Normal appearance of the endometrial canal. No acute findings. Electronically Signed: Neo Patel DO at 23:34 EDT ,
== END | disposition home or self-care (01) ==
PROVIDERS: Referring Provider Obstetrics & Gynecology; Visit Provider Obstetrics & Gynecology
DX: O09.299 Supervision of pregnancy with other poor reproductive or obstetric history, unspecified trimester (principal); Z3A.00 Weeks of gestation of pregnancy not specified
CPT/HCPCS: 76817

== ENCOUNTER → 2024-04-18 | Outpatient (CLI) | payer MEDICAID, SELFPAY ==
[2024-04-18 17:06] LABS: T4 Free Direct 0.78 ng/dL (0.76-1.46); Thyroid Stim Hormone (TSH) 2.54 uIU/mL (0.358-3.74)
[2024-04-25 11:59] LABS: Anti-Cardiolipin Ab, IgG, Qn < 9 GPL U/mL (0-14); Anti-Cardiolipin Ab, IgM, Qn 10 MPL U/mL (0-12); Beta-2-Glycoprotein I IgA <9 (0-25); Beta-2-Glycoprotein I IgG <9 (0-20); Beta-2-Glycoprotein I IgM <9 (0-32); Dilute Prothrombin Time (dPT) 34.4 sec (0.0-47.6); Dilute Russell Viper Venom 45.6 sec (0.0-47.0); Hexagonal Phase Phospholipid 2 4 sec (0-11); Interpretation Comment: (.); PTT-LA 43.9 sec (0.0-43.5); PTT-LA Incub Mix 42.1 sec (0.0-40.5); PTT-LA Mix 40.5 sec (0.0-40.5); Thrombin Time 16.7 sec (0.0-23.0); Thyroid Peroxidase AB < 9 IU/mL (0-34); dPT Confirm Ratio 1.04 Ratio (0.00-1.34)
== END | disposition home or self-care (01) ==
LOC: LAB 15:23
PROVIDERS: Referring Provider Nurse Practitioner Women's Health; Visit Provider Nurse Practitioner Women's Health
DX: N96 Recurrent pregnancy loss (principal); Z87.59 Personal history of other complications of pregnancy, childbirth and the puerperium
CPT/HCPCS: 36415; 84439; 84443; 86146; 86147; 86376

== ENCOUNTER → 2024-05-25 | Outpatient (CLI) | payer MEDICAID, SELFPAY ==
[2024-05-29 15:07] LABS: Anti-Cardiolipin Ab, IgG, Qn < 9 GPL U/mL (0-14); Anti-Cardiolipin Ab, IgM, Qn < 9 MPL U/mL (0-12); Beta-2-Glycoprotein I IgA <9 (0-25); Beta-2-Glycoprotein I IgG <9 (0-20); Beta-2-Glycoprotein I IgM <9 (0-32); Dilute Prothrombin Time (dPT) 36.4 sec (0.0-47.6); Dilute Russell Viper Venom 38.5 sec (0.0-47.0); Interpretation Comment: (.); PTT-LA 42.4 sec (0.0-43.5); Thrombin Time 15.9 sec (0.0-23.0); dPT Confirm Ratio 1.01 Ratio (0.00-1.34)
== END | disposition home or self-care (01) ==
LOC: LAB 12:25
PROVIDERS: Referring Provider Nurse Practitioner Women's Health; Visit Provider Nurse Practitioner Women's Health
DX: Z31.430 Encounter of female for testing for genetic disease carrier status for procreative management (principal)
CPT/HCPCS: 36415; 86146; 86147

== ENCOUNTER 2024-08-19 14:55 | Emergency (ER) | payer MEDICAID, SELFPAY ==
[2024-08-19 14:57] VITALS: BP 107/84; PULSE 137; RESP 18; TEMP 36.1; O2SAT 99; BMI 33.7
--- NOTE | 2024-08-19 15:02 | EDS_ITS ---
HPI History of Present Illness Chief Complaint: Dental PFSH PFS Medical History Anxiety and depression Anxiety Asthma Asthma Home Medications ?Medication ?Instructions ?Recorded ?Last Taken ?Type multivitamin no.47-iron fum 27 1 cap PO DAILY 12/25/23 Unknown History mg-folate no.1 1 mg-dha 300 mg capsule (PNV-DHA) benzonatate 100 mg capsule 100 mg PO TID PRN cough #20 caps 08/08/24 Unknown Rx methylprednisolone 4 mg tablets in See Rx Instructions PO PER PKG DIR 08/08/24 Unknown Rx a dose pack (Medrol (Enrike)) #21 tabs amoxicillin 875 mg-potassium 1 tab PO BID 7 days #14 tabs 08/19/24 Unknown Rx clavulanate 125 mg tablet ondansetron 4 mg disintegrating 4 mg PO Q8H PRN PRN Nausea #10 tabs 08/19/24 Unknown Rx tablet Allergy/AdvReac Type Severity Reaction Status Date / Time No Known Allergies Allergy Verified 08/19/24 14:57 Family History Grandmother Breast cancer Social History adopted: No housing: house number of children: 0 current occupational status: employed current occupation: [employer] sexually active: Yes Smoking Status: Never smoker second hand exposure: Yes alcohol intake: current alcohol intake frequency: holidays/special occasions only substance use type: does not use seatbelt use: always do you feel safe at home: Yes EXAM Physical Exam Const Vital Signs: 08/19/24 14:57 08/19/24 16:37 08/19/24 16:45 Temperature 97 F L Temperature Source Temporal Pulse Rate 137 H 101 H 102 H Respiratory Rate 18 20 H 27 H Blood Pressure 107/84 H 115/83 H Blood Pressure Mean 91 92 Pulse Ox 99 Oxygen Delivery Method Room Air 08/19/24 17:00 08/19/24 17:07 08/19/24 17:23 Temperature 99 F 99 F Temperature Source Oral Pulse Rate 104 H 100 Respiratory Rate 23 H 22 H Blood Pressure 93/79 103/87 H Blood Pressure Mean 86 92 Pulse Ox 97 Oxygen Delivery Method MDM MDM MDM Narrative Medical decision making narrative: HISTORY OF PRESENT ILLNESS: 24-year-old female presents with left-sided toothache. Notes developed several days. She notes last night she started having nausea vomiting diarrhea. She also endorses sore throat. Notes he felt feverish but not checked her temperature. Also notes left-sided abdominal pain and suprapubic pain. Notes family with COVID. States she was tested early week and it was negative. Denies chest pain or shortness of breath. Denies history abdominal surgeries. Denies frequency urgency or dysuria. Denies constipation but notes diarrhea. Denies any melena hematochezia hemoptysis or hematemesis. Denies cough. REVIEW OF SYSTEMS: Pertinent positives: Dental pain, sore throat, nausea and diarrhea, fever Pertinent negatives: Syncope, cough, chest pain, shortness of breath PHYSICAL EXAM: Nursing triage notes reviewed, Vital signs reviewed Constitutional: please see mdm HENT: MMM, no evidence of dental abscess, no submandibular edema or induration, no tonsillar exudates or erythema, uvula midline, patient was controlling secretions, no drooling, no trimus, no dysphonia Eyes: Pupils equal round and reactive to light, Extraocular muscles intact Neck: No stridor, no JVD, full neck ROM Lungs: Clear to auscultation, No wheezing or rales. No increased work of breathing, no conversational dyspnea, no accessory muscle use, no nasal flaring. No respiratory distress noted Heart: Regular rate and rhythm, No murmurs, No rubs and No gallops, 2+ distal pulses (radial, femoral, posterior tibial) in all extremities MEDICAL DECISION MAKING: Chief Complaint: Dental pain External records reviewed: Reviewed prior ED records Factors affecting care: Anxiety, depression, asthma gastroenteritis, Social determinants of health: Denies drug use History obtained from others: None Consults: None [facility] Narrative: The patient was hemodynamically stable, afebrile, nontoxic-appearing. Abdominal exam overall benign with slight suprapubic tenderness. No peritoneal signs. I considered the following differential diagnosis: Dental abscess, ANUG, Ludewig's angina, RPA, DEVELOPMENT PROFESSIONAL, dental caries, gingivitis, AAA, small bowel obstruction, abdominal perforation, appendicitis, pancreatitis, hepatobiliary pathology (acute cholecystitis), mesenteric ischemia, pathology (ie nep hrolithiasis, pyelonephritis). Exam not consistent with dental abscess, ANUG or Daljit angina, no signs of RPA, DEVELOPMENT PROFESSIONAL or dental caries. In terms of patient's abdominal pain, nausea, diarrhea I suspect she is having viral gastroenteritis possibly related to COVID-19 infection. I obtained a broad lab and imaging workup to further elucidate the etiology of the patient's complaints. Given the patient's initial heart rate of 137 obtained an EKG. EKG showed sinus tachycardia rate of 114, normal axis, normal intervals, QTc of 441, no STEMI, no signs of WW or Brugada syndrome. Also obtain blood work to assess signs of systemic inflammation, pancreatitis, signs hepatobiliary obstruction signs of your or UTI/pyelonephritis CBC showed leukocytosis of 11.1, no anemia or thrombocytopenia noted BMP with mild hypokalemia consistent with dehydration, no evidence of acute kidney injury, no signs of metabolic acidosis or endorgan hypoperfusion with a normal bicarb and anion gap LFTs show no evidence of hepatobiliary pathology. Lipase is wnl indicating no pancreatic inflammation. COVID flu RSV negative Urine test negative Urinalysis shows no evidence of urinary inflammation suggestive of UTI On reassessment patient appeared well. Heart rate improved to 104. She is appropriate discharge home. There is no significant left and ideology can be identified. Repeat abdominal exam benign. No indication for advanced imaging the abdomen pelvis at this time. Patient likely suffering from a viral illness. Will give Zofran for nausea vomiting control at home. Will also give prophylactic antibiotics for dental pain and dental follow-up. Shared decision making: I will have a discussion with the patient and or visitors regarding risk/benefits of further testing or admission. They will be made aware of of the risk/benefits inherent in this decision they will be given the opportunity to voice understanding. Impression: 1. Nausea vomiting diarrhea 2. Abdominal pain 3. Dental pain 4. Hypokalemia 2. Leukocytosis Disposition: Discharge home This note was generated with [employer] dictation software. It may contain incorrect words, spelling, and punctuation that were not noted in review of the chart prior to signing. Lab Data Labs: Laboratory Results - last 24 hr 08/19/24 08/19/24 15:30 15:56 WBC 11.1 H RBC 4.79 Hgb 13.8 Hct 40.9 MCV 85.4 MCH 28.8 MCHC 33.7 RDW Std Deviation 40.5 RDW Coeff of Pura 13.2 Plt Count 339 MPV 10.0 Immature Gran % (Auto) 0.400 Neut % (Auto) 79.4 H Lymph % (Auto) 13.0 L [place] % (Auto) 5.3 Eos % (Auto) 1.4 Baso % (Auto) 0.5 Absolute Neuts (auto) 8.8 H Absolute Lymphs (auto) 1.44 Nucleated RBC % 0 Sodium 138 Potassium 3.4 L Chloride 107 Carbon Dioxide 25.0 Anion Gap 6 BUN 6 L Creatinine 0.90 Estim Creat Clear Calc 87.76 Est GFR (MDRD) Af Amer 97 Est GFR (MDRD) Non-Af 81 BUN/Creatinine Ratio 6.7 L Glucose 102 Calcium 9.2 Total Bilirubin 0.60 AST 19 ALT 25 Alkaline Phosphatase 93 Total Protein 7.9 Albumin 3.9 Globulin 4.0 Albumin/Globulin Ratio 1.0 Lipase 21 Urine Color Yellow Urine Clarity Sl. Cloudy Urine pH 6.0 Ur Specific Bow 1.020 Urine Protein 30 H Urine Glucose (UA) Normal Urine Ketones Negative Urine Occult Blood Negative Urine Nitrite Negative Urine Bilirubin Negative Urine Urobilinogen Normal Ur Leukocyte Esterase 25 H Urine RBC 0-5 SEEN Urine WBC 5-10 SEEN Ur Squamous Epith Cells 10-25 SEEN Urine Bacteria 2+ Urine Mucus 0 SEEN Urine Test Negative Discharge Plan Triage Chief Complaint: Dental ED Provider: Jose A Mayfield Dx/Rx/DC Orders Instructions: ED Dental Pain, ED Viral Syndrome (Adult) Prescriptions: New ondansetron 4 mg tablet,disintegrating 4 mg PO Q8H PRN PRN (Reason: Nausea) Qty: 10 0RF amoxicillin-pot clavulanate 875-125 mg tablet 1 tab PO BID 7 Days Qty: 14 0RF No Action methylprednisolone [Medrol (Enrike)] 4 mg tablets,dose pack See Rx Instructions PO PER PKG DIR Qty: 21 0RF Rx Instructions: PO PER PKG DIR benzonatate 100 mg capsule 100 mg PO TID PRN (Reason: cough) Qty: 20 0RF PNV-DHA 27 mg iron-1 mg -300 mg capsule 1 cap PO DAILY Primary Care Provider: Care Physician,No Primary Referrals: Donte Lim MD [Med Staff - Vacuum Repairer] - Activity Restrictions/Additional Instructions: Thank you for trusting us with your care today! Your labs are reassuring. Your vital signs improved. Please take Zofran as needed for nausea and vomiting. Please take antibiotics meant to control any dental infection that you have as directed until course complete. Please take Tylenol (2 pills, 650 mg), ibuprofen (2 pills, 400 mg) every 6 hours as needed for pain and fever control. Please return to the emergency department if your symptoms change or worsen. Please follow with your primary care physician and dentistry for further outpatient evaluation and management. Print Language: Turkmen Disposition Disposition: Home, Self Care
--- NOTE | 2024-08-19 15:15 | EKG12_ITS ---
Test Reason : HIGH HR Blood Pressure : */* mmHG Vent. Rate : 114 BPM Atrial Rate : 114 BPM P-R Int : 166 ms QRS Dur : 90 ms QT Int : 320 ms P-R-T Axes : 34 76 -22 degrees QTcB Int : 441 ms Sinus tachycardia otherwise Normal Confirmed by Omari Molina ([id number]), order editor YVON HOLMAN ([id number]) on 08/21/2024 6:59:14 AM Referred By: Confirmed By: Omari Molina
[2024-08-19 15:38] LABS: Absolute Lymphocyte Count 1.44 X10^3/uL (0.83-4.51); Absolute Neutrophil Count 8.8 X10^3/uL (2.0-7.7); Basophil# 0.05 X10^3/uL; Basophil% 0.5 % (0-1); Eosinophil# 0.15 X10^3/uL; Eosinophils% 1.4 % (0-5); Hematocrit 40.9 % (37-47); Hemoglobin 13.8 g/dL (12.0-15.0); Lymphocyte # 1.44 X10^3/ul (0.83-4.51); Mean Corp Hgb Conc 33.7 g/dL (32-36); Mean Corpuscular Hgb 28.8 pg (27.0-32.0); Mean Corpuscular Volume 85.4 fL (81-99); Monocyte# 0.59 X10^3/uL; Monocyte% 5.3 % (0-10); NRBC Flagged by Analyzer 0 % (0-5); Neutrophil # 8.81 X10^3/uL (2.7-7.7); Neutrophil % 79.4 % (47-70); Platelet Count 339 K/mm3 (150-450); RBC Distribution Width CV 13.2 % (11.6-14.6); RBC Distribution Width SD 40.5 fl (35.1-43.9); Red Blood Count 4.79 M/mm3 (4.2-5.4); White Blood Count 11.1 K/mm3 (4.4-11.0)
[2024-08-19] MEDS: Ondansetron 4 MG/2 ML Vial IV (15:55)
[2024-08-19] MEDS: 0.9% Normal Saline (1000mL) 1,000 ML 1000 ML IV (15:55)
[2024-08-19 15:58] LABS: AST(SGOT) 19 U/L (15-37); Alanine Aminotransfer ALT/SGPT 25 U/L (13-56); Albumin, Serum 3.9 g/dL (3.2-5.0); Alkaline Phosphatase 93 U/L (45-117); Anion Gap 6 (5-15); BUN 6 mg/dL (7-18); BUN/Creat Ratio 6.7 RATIO (10-20); Calcium,Total 9.2 mg/dL (8.5-10.1); Chloride 107 mmol/L (98-107); EST Glomerular Filtration Rate 81 mL/min (>60); Est Glom Filt Rate - Afr Amer 97 mL/min (>60); Estimated Creatinine Clearance 87.76 ml/min; Glucose 102 mg/dL (74-106); Lipase 21 U/L (13-75); Potassium 3.4 mmol/L (3.5-5.1); Protein, Total 7.9 g/dL (6.4-8.2); Sodium Level 138 mmol/L (136-145)
[2024-08-19 16:13] LABS: Mucous, Urine 0 SEEN /hpf (<or=2+)
[2024-08-19 16:18] LABS: Color, Urine Yellow (Yellow); Glucose, Dipstick Normal (Normal); Ketone-Dipstick Negative (Negative); Leukocyte Esterase-Dipstick 25 /ul (Negative); Nitrite-Dipstick Negative (Negative); Occult Blood-Urine Negative /ul (Negative); Protein-Dipstick 30 mg/dl (Negative); Urine Bilirubin Dipstick Negative (Negative); Urine Clarity Sl. Cloudy (Clear); Urine Urobilinogen Normal (Normal)
[2024-08-19 16:36] LABS: Internal QC Validated? YES +Cl - CLEAR BKGD; Pregnancy, Urine Negative Negative
[2024-08-19 16:37] VITALS: PULSE 101; RESP 20
[2024-08-19 16:45] VITALS: BP 115/83; PULSE 102; RESP 27
[2024-08-19 16:47] LABS: Bacteria 2+ /hpf (None Seen); Squamous Epithelial Cells - UA 10-25 SEEN /hpf (5-10)
[2024-08-19 16:48] LABS: Red Blood Cells-Urine 0-5 SEEN /hpf (0-5)
[2024-08-19 16:49] LABS: White Blood Cells 5-10 SEEN /hpf (0-5)
[2024-08-19 17:00] VITALS: BP 93/79; PULSE 104; RESP 23
[2024-08-19 17:07] VITALS: TEMP 37.2
[2024-08-19 17:23] VITALS: BP 103/87; PULSE 100; RESP 22; TEMP 37.2; O2SAT 97
== END 2024-08-19 17:37 | disposition home or self-care (01) ==
PROVIDERS: Emergency Provider Emergency Medicine; Visit Provider Emergency Medicine
DX: K08.89 Other specified disorders of teeth and supporting structures (principal); R19.7 Diarrhea, unspecified; D72.829 Elevated white blood cell count, unspecified; E87.6 Hypokalemia; R10.9 Unspecified abdominal pain; R11.2 Nausea with vomiting, unspecified
CPT/HCPCS: 80053; 81001; 81025; 83690; 85025; 87631; 93005; 96361; 96374; 99285; A4216; J2405

== ENCOUNTER → 2024-08-31 | Outpatient (CLI) | payer MEDICAID, SELFPAY | END | disposition home or self-care (01) | LOC: LABSPEC 11:30 | PROVIDERS: Referring Provider Nurse Practitioner Family; Visit Provider Nurse Practitioner Family | DX: B37.9 Candidiasis, unspecified (principal) | CPT/HCPCS: 87070; 87205 ==

== ENCOUNTER → 2024-12-21 | Outpatient (CLI) | payer MEDICAID, SELFPAY ==
[2024-12-21 13:33] LABS: Cholesterol 179 mg/dL (<=200); High Density Lipoprotein 58 mg/dL; Low Density Lipoprotein Calc. 102 mg/dL; Triglycerides 94 mg/dL; Very Low Density Lipoprotein 19 mg/dL (5-40)
[2024-12-21 13:44] LABS: ALB/GLOB Ratio 1.4 RATIO (0.9-2.4); AST(SGOT) 18 U/L (<=31); Alanine Aminotransfer ALT/SGPT 14 U/L (<=34); Albumin, Serum 4.5 g/dL (3.5-5.0); Alkaline Phosphatase 86 U/L (35-104); Anion Gap 11 (5-15); BUN 9 mg/dL (4-19); BUN/Creat Ratio 11.9 RATIO (10-20); Calcium,Total 9.5 mg/dL (7.6-11.0); Carbon Dioxide 22.6 mmol/L (21.0-32.0); Chloride 104 mmol/L (98-108); Creatinine, Serum 0.75 mg/dL (0.70-1.20); EST Glomerular Filtration Rate 113 (>60); Globulin 3.3 g/dL (2.2-4.2); Glucose 88 mg/dL (70-99); Potassium 3.8 mmol/L (3.3-5.1); Protein, Total 7.8 g/dL (5.9-8.4); Sodium Level 137 mmol/L (133-145); Total Bilirubin 0.52 mg/dL (0.00-1.30); Vitamin D,25 Hydroxy 16.3 ng/mL (30-100)
== END | disposition home or self-care (01) ==
LOC: BIMLAB 11:11
PROVIDERS: PCP Internal Medicine; Referring Provider Internal Medicine; Visit Provider Internal Medicine
DX: J45.909 Unspecified asthma, uncomplicated (principal); Z82.49 Family history of ischemic heart disease and other diseases of the circulatory system; F41.9 Anxiety disorder, unspecified; F32.A Depression, unspecified
CPT/HCPCS: 36415; 80053; 80061; 82306

== ENCOUNTER 2025-02-26 07:19 | Day surgery (SDC) | payer MEDICAID, SELFPAY ==
--- NOTE | 2025-02-22 11:18 | PAT.ANESEVAL ---
Pre-Assessment Diagnosis/Proposed Procedure Planned Operative Procedure(s): COLONOSCOPY Anesthesia History Anesthesia History - nub card tender: Anesthesia History - nub card tender Hx Hospitalization No 02/22/25 09:23 Any Problems With Anesthesia No 02/22/25 09:23 Cholinesterase deficiency No 02/22/25 09:23 You/Your Family Experience No 02/22/25 09:23 fever (hyperthermia) with Relationship Recent Exposure to Contagious Disease Does patient have nerve No 02/22/25 09:23 stimulator Patient instructed to have device shut off --Does patient have Pacemaker or ICD? When Was Last Pacemaker Check QUESTION #4 FULL TEXT: You/Your Family Experience fever (hyperthermia) with Anesthesia Last Oral Intake Last Oral intake: Last Oral Intake NPO since Meds taken in AM with sips of water? Meds patient instructed to take am of surgery PONV PONV - nub card tender: PONV - nub card tender Female Yes 02/22/25 09:23 HX of Motion Sickness No 02/22/25 09:23 HX of N/V After Surgery No 02/22/25 09:23 Non-Smoker No 02/22/25 09:23 Duration of Surgery greater No 02/22/25 09:23 than 60 minutes Number of Risk Factors 1 02/22/25 09:23 PONV Score Low Risk 02/22/25 09:23 Height & Weight Height & Weight: Anesthesia: Height & Weight Height 5 ft 01/31/25 09:24 Respiratory Assessment Respiratory Assessment - nub card tender: Respiratory Tract Infection Hx - nub card tender Hx Respiratory Tract Infection No 02/22/25 09:23 STOP Sleep Apnea STOP Sleep Apnea - nub card tender: STOP Sleep Apnea - nub card tender Hx Hypertension No 02/22/25 09:23 Hx Sleep Apnea No 02/22/25 09:23 CPAP BIPAP Do you snore loudly (louder No 02/22/25 09:23 than talking or can be heard Do you often feel tired/ No 02/22/25 09:23 fatigued/ sleepy during daytime? Has anyone observed you stop No 02/22/25 09:23 breathing during sleep? STOP Results Negative 02/22/25 09:23 QUESTION #5 FULL TEXT : Do you snore loudly (louder than talking or can be heard through closed doors)? Tobacco Use History Tobacco Use History - nub card tender: Tobacco Use History - nub card tender Tobacco Use Smoking Status Current every day smoker 02/22/25 09:23 Hx Tobacco Use No 02/22/25 09:23 Years Smoking Packs Smoked per Day Smoking Cessation Date was within the last 15 years Hx Smoking Cessation Date Hx Smoking Cessation Counseling Hematologic Medial History Hematologic Hx - nub card tender: Hematologic Medical Hx - cleaner housekeeping Hx of Blood Transfusion No 02/22/25 09:23 Hx of Transfusion in last 3 No 02/22/25 09:23 Months Date of Last Transfusion (if within last 3 months) Ever experience any problems No 02/22/25 09:23 with transfusion(s)? Specify any problems Hx of Preganancy in last 3 No 02/22/25 09:23 Months Nurse Filling Out Transfusion VCHRISTIN 02/22/25 09:23 & Questions: Date: 02/22/25 02/22/25 09:23 Time: 09:24 02/22/25 09:23 Patient unable to answer at this time (ie. 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 Asthma Home Medications ?Medication ?Instructions ?Recorded ?Last Taken ?Type albuterol sulfate 90 mcg/actuation 2 puff inhalation Q6H PRN 11/13/24 Unknown Rx aerosol inhaler shortness of breath or wheezing #8.5 grams hydrocortisone 2.5 % topical cream 1 applic [place] BID-QID PRN 12/21/24 Unknown Rx with perineal applicator hemorrhoids #30 grams (Proctosol HC) Hydrocortisone 25mg/diltiazem 1 supp OTHER 2XD #30 supp 02/01/25 Unknown Rx 10mg/lidocaine 50mg Allergy/AdvReac Type Severity Reaction Status Date / Time No Known Allergies Allergy Verified 02/22/25 09:18 Family History Grandmother Breast cancer Brother Anxiety Depression Grandmother Asthma Hypertension High cholesterol Father Asthma Arthritis Diabetes Hypertension Mother Arthritis Brother Myocardial infarction, Onset Age: 19 Heart disease Kidney disease Lung disease Grandfather Parkinson disease Surgical History No pertinent past surgical history Social History (Updated 01/31/25 @ 09:58 by Jeana Dooley LPN) adopted: No household members: significant other housing: house number of children: 0 current occupational status: employed current occupation: [employer] sexually active: Yes Smoking Status: Current every day smoker tobacco type: e-cigarettes second hand exposure: Yes alcohol intake: former details: never a heavy drinker substance use type: does not use seatbelt use: always do you feel safe at home: Yes Audit: Pertinent Findings Pertinent Findings EKG Perinent findings: 08/19/2024. Sinus tachycardia 114 bpm. Otherwise normal. Recommendation Anesthesia Recommendation Anesthesia recommendation: OPTIMIZED for anesthesia
[2025-02-26] VITALS (8 sets, daily range): BP systolic 84–112; BP diastolic 53–62; PULSE 50–74; RESP 12–18; TEMP 36.2; O2SAT 97–100; BMI 34.4
--- OUTSIDE RECORDS SUMMARY | 2025-02-26 07:32 | XMS RPT_ITS | CCD ---
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 Normal [facility] Surgery Visit Reporton 01-31 Surgery Visit Report [facility] [address] [place] [address] OFFICE VISIT Date of Service: 01/31/25 MR#: [id number] Acct: [id number] Name: MOUNACHRISTINA VIEYRA Rep #: [id number] : 2000 Provider: Dr. Ladonna devine MD Age/Sex: 25/F Location: [facility] Status: Signed Intake Vital Signs 12/21/24 10:20 01/31/25 09:24 Height 5 ft 5 ft Weight: 179 lb 8 oz 182 lb BMI 35.0 35.5 BP 112/70 105/74 Blood Pressure Location Lt brachial Rt brachial Position Sitting Sitting Respiration 16 18 Pulse 68 63 Pulse Source Monitor Monitor Temp 96.9 F L 97.2 F L Temp Source Temporal Temporal Pulse Oximetry (%) 98 99 Oxygen Delivery Method room air room air Intake Visit Reasons: BLOOD IN STOOL Chief Complaint: blood in stool/ hemorrhoids Accompanied by: Mother Is patient in pain?: No Allergies No Known Allergies Allergy (Verified 01/31/25 09:25) Medications ???Medication ???Instructions ???Recorded ???Confirmed ???Type albuterol sulfate 90 mcg/actuation 2 puff inhalation Q6H PRN 01/31/25 Rx aerosol inhaler shortness of breath or wheezing #8.5 grams hydrocortisone 2.5 % topical cream 1 applic ND BID-QID PRN 12/21/24 01/31/25 Rx with perineal applicator hemorrhoids #30 grams (Proctosol HC) Hydrocortisone 25mg/diltiazem 1 supp OTHER 2XD #30 supp 02/01/25 02/01/25 Rx 10mg/lidocaine 50mg PFSH Medical History (Updated 02/02/25 @ 11:[address] 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 Anxiety and depression Asthma Surgical History No pertinent past surgical history Family History Grandmother Breast cancer Brother Anxiety Depression Grandmother Asthma Hypertension High cholesterol Father Asthma Arthritis Diabetes Hypertension Mother Arthritis Brother Myocardial infarction, Onset Age: 19 Heart disease Kidney disease Lung disease Grandfather Parkinson disease Social History (Updated 01/31/25 @ 09:58 by Jeana Dooley LPN) adopted: No household members: significant other housing: house number of children: 0 current occupational status: employed current occupation: [employer] sexually active: Yes Smoking Status: Current every day smoker tobacco type: e-cigarettes second hand exposure: Yes alcohol intake: former details: never a heavy drinker substance use type: does not use seatbelt use: always do you feel safe at home: Yes HPI HPI HPI: 25-year-old female presents due to bright red blood per rectum. Patient states that she has had hemorrhoids been dealing with it for last couple of years on and off. Patient never had previous colonoscopy, denies any family history of colon cancer, denies any abdominal pain or nausea or vomiting. Patient states she had been trying the Proctosol cream denies any changes over the last couple weeks. Patient's bowel moods about every other day. Patient will have constipation and then have diarrhea for couple days. Patient does admit to some increased pain with bowel movements especially if solid. ROS General General: No weight change, appetite, fatigue, colon cancer, breast cancer or weakness HEENT HEENT: No difficulty swallowing, eye injury, eye surgery, swollen glands or hoarseness Endo Endocrine: No thyroid disease, diabetes mellitus, thyroid cancer, Hair loss, heat intolerance or cold intolerance Skin Skin: No rash or changing moles Musc Musculoskeletal: No back problems, arthritis, rheumatoid arthritis, gout or joint pain Cardio Cardiovascular: No murmur, pacemaker, heart disease, atrial fibrillation, high blood pressure, heart attack, heart stent, palpitations, shortness of breath with exertion or chest pain Psych Psychiatric: Yes depression and anxiety; No hearing voices Resp Respiratory: No shortness of breath, No sleep apnea, No cough, No COPD, Yes asthma, No emphysema and No wheezing Gastro Gastrointestinal: No abdominal pain, No nausea or vomiting, Yes diarrhea, Yes constipation, Yes blood in stool, Yes acid reflux, Yes hemorrhoids, No ulcers, No gallbladder problem and No black,tarry stools Prabhu Hematologic: No blood thinners, No blood disorders, No bleeding, No anemia and No blood clots Neuro Neurologic: No numbness, No tingling and No weakness Exam Const General: cooperative, healthy appearing, comfortable and no acute distress HENMT Head: normocephalic and atraumatic Neck Neck: supple Resp Effort Inspection: normal respiratory effort C (more content not included)... Normal [facility] Anion gap in Serum or Plasma Ordered By: Ping Turner on 12-21-2024 Anion gap [Moles/Vol] 11 mmol/L 01-25 [facility] BUN/creatinine ratioOrdered By: Ping Turner on 12-21-2024 Urea nitrogen/Creatinine [Mass ratio] 11.9 mg/mg 07-02 [facility] Bilirubin, totalOrdered By: Ping Turner on 12-21-2024 Bilirubin [Mass/Vol] 0.52 mg/dL 0.00-1.30 [facility] Calculated very low density lipoprotein (VLDL) cholesterol measurementOrdered By: Ping Turner on 12-21-2024 Calculated very low density lipoprotein (VLDL) cholesterol measurement 19 mg/dL [facility] VLDL Cholesterol 19 mg/dL [facility] Carbon dioxide, total [Moles /volume] in Central venous bloodOrdered By: Ping Turner on 12-21-2024 CO2 [Moles/Vol] 22.6 mmol/L 21.0-32.0 [facility] Chloride assayOrdered By: Karl Turner on 12-21-2024 Chloride [Moles/Vol] 104 mmol/L 98-108 [facility] Comprehensive Metabolic Prof ilon 12-21-2024 Albumin [Mass/Vol] 4.5 g/dL Normal 3.5-5.0 [facility] Comment on above: Performed By: #### L 506.1001, L500.4050, L500.4100 #### [facility] [address] [place], [address] Albumin/Globulin [Mass ratio] 1.4 {ratio} Normal 0.9-2.4 [facility] Comment on above: Performed By: #### L 506.1001, L500.4050, L500.4100 #### [facility] [address] [place], [address] ALK PHOS 86 U/L Normal 35-104 [facility] Comment on above: Performed By: #### L 506.1001, L500.4050, L500.4100 #### [facility] [address] [place], [address] ALT [Catalytic activity/Vol] 14 U/L Normal <=34 [facility] Comment on above: Performed By: #### L 506.1001, L500.4050, L500.4100 #### [facility] [address] [place], [address] AST [Catalytic activity/Vol] 18 U/L Normal <=31 [facility] Comment on above: Performed By: #### L 506.1001, L500.4050, L500.4100 #### [facility] [address] [place], [address] Bilirubin [Mass/Vol] 0.52 mg/dL Normal 0.00-1.30 [facility] Comment on above: Performed By: #### L 506.1001, L500.4050, L500.4100 #### [facility] [address] [place], [address] BUN/CRE 11.9 RATIO Normal 10-20 [facility] Comment on above: Performed By: #### L 506.1001, L500.4050, L500.4100 #### [facility] [address] [place], [address] Calcium [Mass/Vol] 9.5 mg/dL Normal 7.6-11.0 [facility] Comment on above: Performed By: #### L 506.1001, L500.4050, L500.4100 #### [facility] [address] [place], [address] Chloride [Moles/Vol] 104 mmol/L Normal 98-108 [facility] Comment on above: Performed By: #### L 506.1001, L500.4050, L500.4100 #### [facility] [address] [place], [address] CO2 [Moles/Vol] 22.6 mmol/L Normal 21.0-32.0 [facility] Comment on above: Performed By: #### L 506.1001, L500.4050, L500.4100 #### [facility] [address] [place], [address] Creatinine [Mass/Vol] 0.75 mg/dL Normal 0.70-1.20 [facility] Comment on above: Performed By: #### L 506.1001, L500.4050, L500.4100 #### [facility] [address] [place], [address] GAP 11 Normal 5-15 [facility] Comment on above: Performed By: #### L 506.1001, L500.4050, L500.4100 #### [facility] [address] [place], [address] GFR/1.73 sq M.predicted among non-blacks MDRD (S/P/Bld) [Vol rate/Area] 113 mL/min/{1.73_m2} Normal >60 [facility] Comment on above: Result Comment: mL/m in/1.73m2 CKD-EPI Creatinine Equation (2020) Performed By: #### L 506.1001, L500.4050, L500.4100 #### [facility] [address] [place], [address] Globulin (S) [Mass/Vol] 3.3 g/dL Normal 2.2-4.2 [facility] Comment on above: Performed By: #### L 506.1001, L500.4050, L500.4100 #### [facility] [address] [place], [address] Glucose [Mass/Vol] 88 mg/dL Normal 70-99 [facility] Comment on above: Performed By: #### L 506.1001, L500.4050, L500.4100 #### [facility] [address] [place], [address] Potassium [Moles/Vol] 3.8 mmol/L Normal 3.3-5.1 [facility] Comment on above: Performed By: #### L 506.1001, L500.4050, L500.4100 #### [facility] [address] [place], [address] Sodium [Moles/Vol] 137 mmol/L Normal 133-145 [facility] Comment on above: Performed By: #### L 506.1001, L500.4050, L500.4100 #### [facility] [address] [place], [address] T PROT 7.8 g/dL Normal 5.9-8.4 [facility] Comment on above: Performed By: #### L 506.1001, L500.4050, L500.4100 #### [facility] [address] [place], [address] Urea nitrogen [Mass/Vol] 9 mg/dL Normal 4-19 [facility] Comment on above: Performed By: #### L 506.1001, L500.4050, L500.4100 #### [facility] [address] [place], [address] GFR/1.73 sq M.predicted lizet g non-blacks MDRD (S/P/Bld) [Vol rate/Area]Ordered By: Ping Turner on 12-21-2024 Estimated GFR (MDRD) Non-Af Amer 113 >60 [facility] Comment on above: mL/min/1.73m2 CKD-EP I Creatinine Equation (2020) Glomerular filtration rate ( GFR) estimation/1.73 sq m using serum, plasma, or whole bOrdered By: Ping Turner on 12-21-2024 GFR/1.73 sq M.predicted among non-blacks MDRD (S/P/Bld) [Vol rate/Area] 113 mL/min/{1.73_m2} >60 [facility] Comment on above: mL/min/1.73m2 CKD-EP I Creatinine Equation (2020) LDL calc ser/plasOrdered By: Ping Turner on 12-21-2024 Cholesterol in LDL [Mass/Vol] 102 mg/dL [facility] Comment on above: Qopoqhxjng=115-845 m g/dL & Higher Ywkk=596 mg/dL or greater LDL Cholesterol, Calculated 102 mg/dL [facility] Comment on above: Cqwusfwrye=913-219 m g/dL & Higher Xgbi=340 mg/dL or greater Laboratory - Chemistry and C hemistry - challengeOrdered By: Ping Turner on 12-21-2024 AST [Catalytic activity/Vol] 18 U/L <32 [facility] Lipid Profileon 12-21-2024 CHOL:HDL 3.10 Normal [facility] Comment on above: Performed By: #### L 506.1001, L500.4050, L500.4100 #### [facility] [address] [place], [address] Cholesterol [Mass/Vol] 179 mg/dL Normal <=200 [facility] Comment on above: Result Comment: Chol esterol level, Desirable <200 mg/dL Borderline high cholesterol 200-239 mg/dL High cholesterol >=240 mg/dL Recommendations of the NCEP Adult Treatment Panel for the following risk-cutoff thresholds for the [place] population. Performed By: #### L 506.1001, L500.4050, L500.4100 #### [facility] [address] [place], [address] Cholesterol in HDL [Mass/Vol] 58 mg/dL Normal [facility] Comment on above: Result Comment: Lolly onal Cholesterol Education Program (NCEP) guidelines: <40 mg/dL: Low HDL-cholesterol (major risk factor for CHD) >= 60 mg/dL: High HDL-cholesterol (negative risk factor for CHD) HDL-cholesterol is affected by a number of factors, e.g. smoking, exercise, hormones, sex and age. Performed By: #### L 506.1001, L500.4050, L500.4100 #### [facility] [address] [place], [address] Cholesterol in LDL [Mass/Vol] 102 mg/dL Normal [facility] Comment on above: Result Comment: Bord lrjmdm=869-745 mg/dL Higher Kenf=902 mg/dL or greater Performed By: #### L 506.1001, L500.4050, L500.4100 #### [facility] [address] [place], [address] Cholesterol in VLDL [Mass/Vol] 19 mg/dL Normal 5-40 [facility] Comment on above: Performed By: #### L 506.1001, L500.4050, L500.4100 #### [facility] [address] [place], [address] Triglyceride [Mass/Vol] 94 mg/dL Normal [facility] Comment on above: Result Comment: The drugs N-Acetylcysteine and Metamizole may falsely depress this assay. Normal range: <150 mg/dL Borderline High: 150-199 mg/dL High: 200-499 mg/dL Very High: >500 mg/dL Performed By: #### L 506.1001, L500.4050, L500.4100 #### [facility] [address] [place], [address] Potassium (Unsp spec) [Mass/ Vol]Ordered By: Ping Turner on 12-21-2024 Potassium [Moles/Vol] 3.8 mmol/L 3.3-5.1 [facility] Potassium measurement (mass/ volume)Ordered By: Ping Turner on 12-21-2024 Potassium (Unsp spec) [Mass/Vol] 3.8 mmol/L 3.3-5.1 [facility] Screening total cholesterol/ high density lipoprotein (HDL) cholesterol ratioOrdered By: Ping Turner on 12-21-2024 Cholesterol.total/Cholest reza in HDL [Mass ratio] 3.10 {ratio} [facility] Serum creatinine measurement (mass/volume)Ordered By: Ping Turner on 12-21-2024 Creatinine [Mass/Vol] 0.75 mg/dL 0.70-1.20 [facility] Serum globulin measurementOr dered By: Ping Turner on 12-21-2024 Globulin (S) [Mass/Vol] 3.3 g/dL 2.2-4.2 [facility] Serum glucose measurement (m ass/volume)Ordered By: Ping Turner on 12-21-2024 Glucose [Mass/Vol] 88 mg/dL 70-99 [facility] Serum or plasma alanine griffith otransferase (ALT) measurementOrdered By: Ping Turner on 12-21-2024 ALT [Catalytic activity/Vol] 14 U/L <35 [facility] Serum or plasma albumin stas urement (mass/volume)Ordered By: Ping Turner on 12-21-2024 Albumin [Mass/Vol] 4.5 g/dL 3.5-5.0 [facility] Serum or plasma albumin/glob ulin mass ratioOrdered By: Ping Turner on 12-21-2024 Albumin/Globulin [Mass ratio] 1.4 {ratio} 0.9-2.4 [facility] Serum or plasma alkaline eduardo sphatase measurementOrdered By: Ping Turner on 12-21-2024 ALP [Catalytic activity/Vol] 86 U/L 35-104 [facility] Serum or plasma calcium stas urement (mass/volume)Ordered By: Ping Turner on 12-21-2024 Calcium [Mass/Vol] 9.5 mg/dL 7.6-11.0 [facility] Serum or plasma cholesterol in HDL measurement (mass/volume)Ordered By: Ping Turner on 12-21-2024 Cholesterol in HDL [Mass/Vol] 58 mg/dL >40 [facility] Comment on above: National Cholesterol Education Program (NCEP) guidelines:<40 mg/dL: Low HDL-cholesterol (major risk factor for CHD)>= 60 mg/dL: High HDL-cholesterol (negative risk factor for CHD)HDL-cholesterol is affected by a number of factors, e.g. smoking, exercise, hormones, sex and age. Serum or plasma cholesterol measurement (mass/volume)Ordered By: Ping Turner on 12-21-2024 Cholesterol [Mass/Vol] 179 mg/dL <[address] [facility] Comment on above: Cholesterol level, D esirable <200 mg/dLBorderline high cholesterol 200-239 mg/dLHigh cholesterol >=240 mg/dLRecommendations of the NCEP Adult Treatment Panel for the following risk-cutoff thresholds for the [place] population. Serum or plasma urea nitroge n measurement (mass/volume)Ordered By: Ping Turner on 12-21-2024 Urea nitrogen [Mass/Vol] 9 mg/dL 4-19 [facility] Sodium levelOrdered By: Donna Turner on 12-21-2024 Sodium [Moles/Vol] 137 mmol/L 133-145 [facility] Total proteinOrdered By: Yonathan Turner on 12-21-2024 Protein [Mass/Vol] 7.8 g/dL 5.9-8.4 [facility] Triglycerides measurementOrd ered By: Ping Turner on 12-21-2024 Triglyceride [Mass/Vol] 94 mg/dL <199 [facility] Comment on above: The drugs N-Acetylcy steine and Metamizole may falsely depress this assay. Normal range: <150 mg/dLBorderline High: 150-199 mg/dLHigh: 200-499 mg/dLVery High: >500 mg/dL Vitamin D, 25-hydroxyOrdered By: Ping Turner on 12-21-2024 Vitamin D 25-Hydroxy 16.3 ng/mL Low 30-100 [facility] Comment on above: Vitamin D StatusDefi ciency: <20 ng/mL (50nmol/L)Insufficiency: 20-30 ng/mL (50-75 nmol/L)Sufficiency: 30-100 ng/mL (75-250 nmol/L)Toxicity: >100 ng/mL (>250 nmol/L) Vitamin D,25 Hydroxyon 12-21 Vitamin D 25-OH 16.3 ng/mL Low 30-100 [facility] Comment on above: Result Comment: Serena min D Status Deficiency: <20 ng/mL (50nmol/L) Insufficiency: 20-30 ng/mL (50-75 nmol/L) Sufficiency: 30-100 ng/mL (75-250 nmol/L) Toxicity: >100 ng/mL (>250 nmol/L) Performed By: #### L 506.1001, L500.4050, L500.4100 #### [facility] [address] [place], [address] Internal Medicine Office Vis iton 12-20-2024 Internal Medicine Office Visit [facility] [address] [place] [address] [place] [address] OFFICE VISIT Date of Service: 12/21/24 MR#: [id number] Acct: [id number] Name: CHRISTINA ZUNIGA Rep #: [id number] : 2000 Provider: Dr. Ping lopez MD Age/Sex: 24/F Location: [facility] Status: Signed Intake Vital Signs 11/13/24 11:30 12/21/24 10:20 Height 5 ft 5 ft Weight: 179 lb 8 oz BMI 35.0 BP 112/70 Blood Pressure Location Lt brachial Position Sitting Respiration 16 Pulse 68 Pulse Source Monitor Temp 96.9 F L Temp Source Temporal Pulse Oximetry (%) 98 Oxygen Delivery Method room air Intake Visit Reasons: blood when going to bathroom Chief Complaint: no blood right now Import Export Coordinator Required: No Accompanied by: Self Is patient in pain?: No Allergies No Known Allergies Allergy (Verified 12/21/24 10:16) Medications ???Medication ???Instructions ???Recorded ???Confirmed ???Type albuterol sulfate 90 mcg/actuation 2 puff inhalation Q6H PRN 12/21/24 Rx aerosol inhaler shortness of breath or wheezing #8.5 grams hydrocortisone 2.5 % topical cream 1 applic ND BID-QID PRN 12/21/24 12/21/24 Rx with perineal applicator hemorrhoids #30 grams (Proctosol HC) Is last menstrual period known: No Post menopausal: No Patient : No Have you fallen in the past year?: No PFSH Medical History ADD (attention deficit disorder) 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 Anxiety and depression Asthma Surgical History No pertinent past surgical history Family History Grandmother Breast cancer Brother Anxiety Depression Grandmother Asthma Hypertension High cholesterol Father Asthma Arthritis Diabetes Hypertension Mother Arthritis Brother Myocardial infarction, Onset Age: 19 Heart disease Kidney disease Lung disease Grandfather Parkinson disease Social History adopted: No household members: significant other housing: house number of children: 0 current occupational status: employed current occupation: [employer] sexually active: Yes Smoking Status: Never smoker second hand exposure: Yes alcohol intake: former details: never a heavy drinker substance use type: does not use seatbelt use: always do you feel safe at home: Yes HPI HPI Chief Complaint: no blood right now Details: CHRISTINA ZUNIGA, is a 24 F who presents to the office today for an acute visit. She has concerns about blood per rectum. She had reported symptoms at her last office visit, but reported it was intermittent and declined a rectal exam. At that time, she had said she was previously diagnosed with hemorrhoids and told to use suppositories and fiber. She reports since she was last seen, she had some increased bleeding, which was more than she had previously had, however, it has since resolved again. She reports it is still bright red blood with both wiping and in the toilet bowl. She denies any dark or bloody stools, however. She reports doesn't really cause pain to move her bowels. She reports she is trying to drink plenty of water and has been doing fiber. She hasn't used any fiber or suppositories in the last few days. She denies any abdominal pain, nausea or vomiting. She has no other questions or concerns at this time. ROS Const Constitutional: No body ache, excessive sweating, fatigue, fever(s), frequent falls, headache(s), snoring, weakness, weight change, sleep problems or change in appetite Eyes Eyes: No blurry vision, change in vision, eye pain or Light sensitivity ENT ENT: No abnormal hearing, ear or mastoid pain, tinnitus, nasal congestion, headache(s), neck pain or sore throat Resp Respiratory: No cough, shortness of breath, snoring or wheezing Cardio Cardiology: No chest pain at rest, chest pain with exertion, excessive sweating, shortness of breath, dyspnea on exertion, lightheadedness, orthopnea or palpitations Gastro GI: Positive for Blood in stool; No abdominal pain, change in bowel habits, constipation, cramping, diarrhea, Black,tarry stools, nausea/dyspepsia or vomiting Genitourinary-Femal e: No burning urination, painful urination, urinary incontinence, urinary frequency, blood in urine, abnormal periods or pelvic pain Musc Musculoskeletal: No abnormal gait, joint pain, back pain, limited range of motion, neck pain, numbness, stiffness, tingling or Arthritis Skin Skin: No dry skin, redness, lesions, itchy eyes, rash or wounds Neuro Neurology: No abnormal gait, abnormal hearing, abnormal speech, di (more content not included)... Normal [facility] Internal Medicine Office [facility] 11-[facility]24 Internal Medicine Office Visit [facility] [address] [place] [address] [place] [address] OFFICE VISIT Date of Service: 11/13/24 MR#: [id number] Acct: [id number] Name: CHRISTINA ZUNIGA Rep #: [id number] : 2000 Provider: Dr. Ping lopez MD Age/Sex: 24/F Location: [facility] Status: Signed Intake Vital Signs 08/19/24 14:57 08/31/24 09:12 11/13/24 11:30 Height 5 ft 5 ft 5 ft Weight: 180 lb 2 oz BMI 35.2 BP 112/60 Blood Pressure Location Lt brachial Position Sitting Respiration 12 Pulse 85 Pulse Source Monitor Temp 97.6 F L Temp Source Temporal Pulse Oximetry (%) 99 Oxygen Delivery Method room air Intake Visit Reasons: est care Chief Complaint: establishing Import Export Coordinator Required: No Accompanied by: Mother Is patient in pain?: No Allergies No Known Allergies Allergy (Verified 11/13/24 11:25) Medications ???Medication ???Instructions ???Recorded ???Confirmed ???Type albuterol sulfate 90 mcg/actuation 2 puff inhalation Q6H PRN 11/13/24 Rx aerosol inhaler shortness of breath or wheezing #8.5 grams hydrocortisone 2.5 % topical cream 1 applic ND Q8H PRN hemorrhoids 3 11/13/24 11/13/24 Rx with perineal applicator weeks #30 grams (Proctosol HC) Have you fallen in the past year?: No PFS Medical History (Updated 11/13/24 @ 16:[address] 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 Ping Turner MD) No pertinent past surgical history Family History (Updated 11/13/24 @ 11:[address] Ping Turner MD) Grandmother Breast cancer Brother Anxiety Depression Grandmother Asthma Hypertension High cholesterol Father Asthma Arthritis Diabetes Hypertension Mother Arthritis Brother Myocardial infarction, Onset Age: 19 Heart disease Kidney disease Lung disease Grandfather Parkinson disease Social History (Updated 11/13/24 @ 11:[address] Ping Turner MD) adopted: No household members: significant other housing: house number of children: 0 current occupational status: employed current occupation: [employer] sexually active: Yes Smoking Status: Never smoker second hand exposure: Yes alcohol intake: former details: never a heavy drinker substance use type: does not use seatbelt use: always do you feel safe at home: Yes HPI HPI Chief Complaint: establishing Details: CHRISTINA ZUNIGA, is a 24 F who presents to the office today to establish care. She was seeing a copy technician in [place] and last saw them a few years ago. She is due for some routine blood work. She is up to date on her screening. She doesn't want any covid or flu vaccines. She doesn't smoke and does need refills. She reports she is eating healthy, but could be doing better. She reports she is active at work. The patient was diagnosed with asthma as a child. She reports she just uses her rescue inhaler as needed. She states her use is higher in the summer months as she is outside more. She averages her use around 1-2 times per week during those months. She states she will also occasionally use it when her anxiety is high. She states it does help during those times. The patient has struggled with her mental health since high school. She reports she was previously on medications, but doesn't recall what it was. She states she didn't like the way it made it feel, so she stopped taking it. She reports she was last on medications about 3 years ago. She reports she doesn't have as much concern over her mental health. She doesn't follow with a counselor or psychiatrist. She denies any thoughts of suicide. She has no other questions or concerns at this time. ROS Const Constitutional: Positive for weight change (fluctuates); No body ache, excessive sweating, fatigue, fever(s), frequent falls, headache(s), snoring, weakness, sleep problems or change in appetite Eyes Eyes: No blurry vision, change in vision, eye pain or Light sensitivity ENT ENT: No abnormal hearing, ear or mastoid pain, tinnitus, nasal congestion, headache(s), neck pain or sore throat Resp Respiratory: No cough, shortness of breath, snoring or wheezing Cardio Cardiology: No chest pain at rest, chest pain with exertion, excessive sweating, shortness of breath, dyspnea on exertion, lightheadedness, orthopnea, palpitations or other (no leg swelling) Gastro GI: Positive for other (blood per rectum); No abdominal pain, change in bowel habits, constipation, cramping, diarrhea, nausea/dyspepsia or vomiting Genitourinary-Femal e: No difficulty urinating, burning urination, painful urination, urinary incontinence, urinary frequency, blood in urin (more content not included)... Normal [facility] Genital Culture Comprehensiv zaria 09-02-2024 VAC Reason for Exam: yeast infection Normal vaginal olga isolated. No Gardnerella, Neisseria or beta-hemolytic Streptococcus isolated. Presumptive C albicans Amount Growth Very Rare Normal [facility] Comment on above: Performed By: #### M 100.3200, M100.2000 ####[facility] [id number] [place], [place], [address] Genital cultureOrdered By: Davonte Green on 08-31-2024 Genital Culture Presumptive C albicans Abnormal [facility] Gram Stainon 08-31-2024 GS Reason for Exam: yeast infection Gram Stain 4+ Gram positive rods Rare White Blood Cells No Gram negative diplococci Score = 0 Interpretation: 0-3 Normal, 4-6 Intermediate, 7-10 Positive BV Normal [facility] Comment on above: Performed By: #### M 100.3200, M100.2000 ####[facility] [id number] [place], [place], [address] Gram stainOrdered By: Erendira Green on 08-31-2024 Microscopic observation Gram stain Nom (Unsp spec) [facility] Microarray Analyst Office Visit Reporton 08-31-2024 Microarray Analyst Office Visit Report [facility] [address], [address] [place] [address] OFFICE VISIT Date of Service: 08/31/24 MR#: [id number] Acct: [id number] Name: CHRISTINA ZUNIGA Rep #: [id number] : 2000 Provider: BATOOL Martin Age/Sex: 24/F Location[place] [facility] [place] Status: Signed Intake Vital Signs 08/19/24 14:57 08/31/24 09:12 Height 5 ft 5 ft Weight: 175 lb BMI 34.2 BP 109/75 Intake Visit Reasons: yeast infection? vaginal discharge Import Export Coordinator Required: No Is patient in pain?: No Allergies No Known Allergies Allergy (Verified 08/31/24 09:14) Medications ???Medication ???Instructions ???Recorded ???Confirmed ???Type ondansetron 4 mg disintegrating 4 mg PO Q8H PRN PRN Nausea #10 tabs 08/19/24 Rx tablet fluconazole 150 mg tablet 150 mg PO Q3D 2 doses #2 tabs 08/31/24 08/31/24 Rx Is last menstrual period known: Yes Last Menstrual Period: 08/04/24 Post menopausal: No Patient : No : No PFSH Medical History Anxiety and depression Anxiety Asthma Asthma Family History Grandmother Breast cancer Social History (Updated 08/31/24 @ 09:17 by Stephany Ring) adopted: No housing: house number of children: 0 current occupational status: employed current occupation: [employer] sexually active: Yes Smoking Status: Never smoker second hand exposure: Yes alcohol intake: current alcohol intake frequency: holidays/special occasions only substance use type: does not use seatbelt use: always do you feel safe at home: Yes HPI yeast infection? vaginal discharge Details: CHRISTINA ZUNIGA is a 24 year old who presents for vaginal itching; she reports she does have a discharge when she wipes. She reports she was recently on antibiotics; just finished a couple days ago. She reports she is sexually active; 1 partner. No concerns for STI's today. She denies fever/chills. Denies pelvic pain. Female Reproductive History Last Menstrual Period: 08/04/24 History 0 Elective abortions Hx Para Spontaneous abortions Hx # Term Pregnancies Ectopic pregnancies Hx # Pregnancies Multiple births # of living children ROS Const Constitutional: Denies chills, fatigue or fever(s) GI GI: Denies abdominal pain or nausea : Reports vaginal discharge and vaginal pruritus; Denies difficulty voiding, dysuria, hematuria, pelvic pain, urinary incontinence, vaginal dryness or vaginal odor Skin Skin/Breast: Denies rash Exam Const General: cooperative and no acute distress Orientation: oriented x3 HENMT Head: normal to inspection and normocephalic Eyes General: appearance normal, both eyes and all related structures Neck Neck: normal visual inspection Resp Effort Inspection: normal respiratory effort GI Palpation: soft External Female Exam: normal external appearance and normal appearance of the urethra Urethra: normal appearance of the urethra Speculum Exam - Vagina: normal appearance of the vagina, abnormal vaginal discharge (thick) white, No vaginal bleeding, no swelling and nontender Speculum Exam - Cervix: normal appearance of the cervix and nontender Bimanual Exam- Vagina Uterus: normal palpation and No tender Bimanual Exam- Adnexa, other: normal adnexae OB/External Speculum: No vaginal bleeding Speculum Exam: no vaginal bleeding Neuro Cognition: normal cognition Speech: speech normal Psych Appearance: grossly normal Mood: congruent mood Affect: normal affect Speech and Movement: speech and movement normal Attitude: cooperative Judgment: judgment good Coding Level of Care Code Established Pt Off vis,est,level 3 Patient Type Established Diagnoses Vaginal discharge N89.8 Assessment and Plan Assessment and Plan (1) Vaginal discharge: Status: Acute Plan: consistent with yeast; will treat today. Culture obtained; final plan once results available. Call office sooner with questions or concerns. Orders: Orders Culture, Genital Comprehensive Today B37.9 - Candidiasis, unspecified Medications: New fluconazole may repeat second dose 72 hrs after first dose if symptoms persist 150 mg PO Q3D 2 tabs 0RF 08/31/24 1330 Date Erendira Green CUPOLA HOIST OPERATOR-C Cosigner Signature: Date (if applicable) CC: Normal [facility] Office Visit Reporton 2023 Office Visit Report [facility] [address] [place] [address] OFFICE VISIT Date of Service: 08/28/24 MR#: [id number] Acct: [id number] Patient: CHRISTINA ZUNIGA Rep #: [id number] : 2000 Provider: EUSEBIA Cochran Age/Sex: 24/F Location: [facility] [place] Status: Signed Intake Vital Signs 08/19/24 14:57 08/28/24 14:53 Height 1.52 m BP 112/72 Blood Pressure Location Lt brachial Position Sitting Respiration 12 Pulse 74 Pulse Source NIBP Temp 98.3 F Temp Source Oral Pulse Oximetry (%) 100 Oxygen Delivery Method room air Intake Visit Reasons: congestion nausea diarrhea Chief Complaint: ZABALA/NAUSEA/CONGESTIO N/DIARRHEA Import Export Coordinator Required: No Accompanied by: Mother Is patient in pain?: No Allergies No Known Allergies Allergy (Verified 08/28/24 14:54) Medications ???Medication ???Instructions ???Recorded ???Confirmed ???Type multivitamin no.47-iron fum 27 1 cap PO DAILY 12/25/23 04/18/24 History mg-folate no.1 1 mg-dha 300 mg capsule (PNV-DHA) benzonatate 100 mg capsule 100 mg PO TID PRN cough #20 caps 08/08/24 08/08/24 Rx methylprednisolone 4 mg tablets in See Rx Instructions PO PER PKG DIR 08/08/24 08/08/24 Rx a dose pack (Medrol (Enrike)) #21 tabs ondansetron 4 mg disintegrating 4 mg PO Q8H PRN PRN Nausea #10 tabs 08/19/24 Rx tablet Is last menstrual period known: No Post menopausal: No Patient : No Have you fallen in the past year?: No PFSH Medical History Anxiety and depression Anxiety Asthma Asthma Family History Grandmother Breast cancer Social History adopted: No housing: house number of children: 0 current occupational status: employed current occupation: [employer] sexually active: Yes Smoking Status: Never smoker second hand exposure: Yes alcohol intake: current alcohol intake frequency: holidays/special occasions only substance use type: does not use seatbelt use: always do you feel safe at home: Yes HPI HPI Chief Complaint: ZABALA/NAUSEA/CONGESTIO N/DIARRHEA Details: CHRISTINA ZUNIGA, is a 24 F who presents to the office today for nausea, diarrhea, congestion x1 week and bilat ear pain. patient stated that she has been tested at the hospital for flu, covid, strep declined viral testing. Pt was seen 08/08 here for pharyngitis, headache, and sinus congestion - she was tested for flu covid and strep and was negative. She was treated with medrol and tessalon perles. She then went to the ER for similar complaints plus dental pain 1 week ago. At that time she had an elevated white count, was tested for flu, covid, strep, and RSV which were all negative. She was treated with amox clav for concerns for dental pain. She was also given zofran for nausea. She has completed the amox clav. She still has zofran. She comes back today as she still has headache, nausea, sinus congestion, sore throat, and cough. She states they are somewhat better than what they were when she was seen at the ER. She followed up here as she does not have a family doctor. ROS Const Constitutional: Positive for fatigue and headache(s); No fever(s) ENT ENT: Positive for nasal congestion, sinus pressure, headache(s) and sore throat; No ear or mastoid pain Resp Respiratory: Positive for cough; No shortness of breath Gastro GI: Positive for nausea/dyspepsia; No diarrhea or vomiting Neuro Neurology: Positive for headache(s) Endo Endocrine: Positive for fatigue Exam Const General: cooperative, healthy appearing, comfortable, no acute distress, well developed and well groomed Nutritional Appearance: average body habitus and well nourished Orientation: alert, awake and oriented x3 HENMT Head: normocephalic and atraumatic Ears: hearing grossly normal bilaterally, external ears normal and TM's normal bilaterally Nose: external nose normal, nares normal and no nasal polyps Face and sinus: normal facial exam and sinuses nontender Throat: posterior oropharynx normal, tonsils normal and uvula midline Neck Lymphatic: no lymphadenopathy noted Resp Effort Inspection: normal respiratory effort, able to speak in complete sentences, symmetric chest movement and no cough Auscultation: Bilateral: Clear to Auscultation Cardio Rate: regular rate Rhythm: regular rhythm Heart Sounds: no murmurs Coding Level of Care Code Off vis,est,level 2 Diagnoses Viral URI with cough J06.9 Assessment and Plan Assessment and Plan (1) Viral URI with cough: Status: Acute Plan: 3rd time being seen, first 08/08 for treated with medrol and tessalon perles, then in the er for the same + dental pain treated with augmentin and zofran with minimal relief. At this time present (more content not included)... Normal [facility] 12 Lead EKGon 08-19-2024 12 Lead EKG [facility] [address] [place] [address] 12 Lead EKG 08/19/24 1521 MR#: [id number] Acct: [id number] Name: MOUNACHRISTINA VIEYRA Rep #: [id number] : 2000 24 From: Omari Molina MD Attending Dr: Status: DEP ER Ordering Dr: Jose A Mayfield DO Date: 08/19/24 Location: ED Sex: F C Admitted: Test Reason : HIGH HR Blood Pressure : */* mmHG Vent. Rate : 114 BPM Atrial Rate : 114 BPM P-R Int : 166 ms QRS Dur : 90 ms QT Int : 320 ms P-R-T Axes : 34 76 -22 degrees QTcB Int : 441 ms Sinus tachycardia otherwise Normal Confirmed by Omari Molina ([id number]), editor department YVON HOLMAN ([id number]) on 08/21/2024 6:59:14 AM Referred By: Confirmed By: Omari Molina 08/21/24 0659 Date Omari Molina MD CC: Dr. Jose A Mayfield DO; No Primary Care Physician Signed Normal [facility] CBC W/Diff, Automatedon 12-0 Absolute Lymph 1.44 X10 3/uL Normal 0.83-4.51 [facility] Comment on above: Performed By: #### L 500.4050, L501.2450, L100.0100 #### [facility] [address] [place], [address] Absolute Neut 8.8 X10 3/uL High 2.0-7.7 [facility] Comment on above: Performed By: #### L 500.4050, L501.2450, L100.0100 #### [facility] [address] [place], [address] Basophils/100 WBC (Bld) 0.5 % Normal 0-1 [facility] Comment on above: Performed By: #### L 500.4050, L501.2450, L100.0100 #### [facility] [address] [place], [address] Eosinophils/100 WBC (Bld) 1.4 % Normal 0-5 [facility] Comment on above: Performed By: #### L 500.4050, L501.2450, L100.0100 #### [facility] [address] [place], [address] Erythrocyte distribution width (RBC) [Ratio] 13.2 % Normal 11.6-14.6 [facility] Comment on above: Performed By: #### L 500.4050, L501.2450, L100.0100 #### [facility] [address] [place], [address] Hematocrit (Bld) [Volume fraction] 40.9 % Normal 37-47 [facility] Comment on above: Performed By: #### L 500.4050, L501.2450, L100.0100 #### [facility] [address] [place], [address] Hemoglobin (Bld) [Mass/Vol] 13.8 g/dL Normal 12.0-15.0 [facility] Comment on above: Performed By: #### L 500.4050, L501.2450, L100.0100 #### [facility] [address] [place], [address] IG% 0.400 Normal 0.0-0.9 [facility] Comment on above: Result Comment: IG% - Immature Granulocytes (promyelocytes, myelocytes and metamyelocytes) > 1% indicates that a LEFT SHIFT is Present. Performed By: #### L 500.4050, L501.2450, L100.0100 #### [facility] [address] [place], [address] Lymphocytes/100 WBC (Bld) 13.0 % Low 19-41 [facility] Comment on above: Performed By: #### L 500.4050, L501.2450, L100.0100 #### [facility] [address] [place], [address] MCH (RBC) [Entitic mass] 28.8 pg Normal 27.0-32.0 [facility] Comment on above: Performed By: #### L 500.4050, L501.2450, L100.0100 #### [facility] [address] [place], [address] MCHC (RBC) [Mass/Vol] 33.7 g/dL Normal 32-36 [facility] Comment on above: Performed By: #### L 500.4050, L501.2450, L100.0100 #### [facility] [address] [place], [address] MCV (RBC) [Entitic vol] 85.4 fL Normal 81-99 [facility] Comment on above: Performed By: #### L 500.4050, L501.2450, L100.0100 #### [facility] [address] [place], [address] Monocytes/100 WBC (Bld) 5.3 % Normal 0-10 [facility] Comment on above: Performed By: #### L 500.4050, L501.2450, L100.0100 #### [facility] [address] [place], [address] Neutrophils/100 WBC (Bld) 79.4 % High 47-70 [facility] Comment on above: Performed By: #### L 500.4050, L501.2450, L100.0100 #### [facility] [address] [place], [address] Nucleated RBC (Bld) [#/Vol] 0 10*3/uL Normal 0-5 [facility] Comment on above: Performed By: #### L 500.4050, L501.2450, L100.0100 #### [facility] [address], [address] Platelet mean volume (Bld) [Entitic vol] 10.0 fL Normal 6.2-12.0 [facility] Comment on above: Performed By: #### L 500.4050, L501.2450, L100.0100 #### [facility] [address] [place], [address] Platelets (Bld) [#/Vol] 339 10*3/uL Normal 150-450 [facility] Comment on above: Performed By: #### L 500.4050, L501.2450, L100.0100 #### [facility] [address] [place], [address] RBC (Bld) [#/Vol] 4.79 10*6/uL Normal 4.2-5.4 [facility] Comment on above: Performed By: #### L 500.4050, L501.2450, L100.0100 #### [facility] [address] [place], [address] RDW SD 40.5 fl Normal 35.1-43.9 [facility] Comment on above: Performed By: #### L 500.4050, L501.2450, L100.0100 #### [facility] [address] [place], [address] WBC (Bld) [#/Vol] 11.1 10*3/uL High 4.4-11.0 [facility] Comment on above: Performed By: #### L 500.4050, L501.2450, L100.0100 #### [facility] [address] [place], [address] Comprehensive Metabolic Prof ilon 08-19-2024 Albumin [Mass/Vol] 3.9 g/dL Normal 3.2-5.0 [facility] Comment on above: Performed By: #### L 500.4050, L501.2450, L100.0100 #### [facility] [address] [place], [address] Albumin/Globulin [Mass ratio] 1.0 {ratio} Normal 0.9-2.4 [facility] Comment on above: Performed By: #### L 500.4050, L501.2450, L100.0100 #### [facility] [address] [place], [address] ALK P 93 U/L Normal 45-117 [facility] Comment on above: Performed By: #### L 500.4050, L501.2450, L100.0100 #### [facility] [address] [place], [address] ALT [Catalytic activity/Vol] 25 U/L Normal 13-56 [facility] Comment on above: Performed By: #### L 500.4050, L501.2450, L100.0100 #### [facility] [address] [place], [address] AST [Catalytic activity/Vol] 19 U/L Normal 15-37 [facility] Comment on above: Performed By: #### L 500.4050, L501.2450, L100.0100 #### [facility] [address] [place], [address] Bilirubin [Mass/Vol] 0.60 mg/dL Normal 0.20-1.00 [facility] Comment on above: Result Comment: For patients on eltrombopag therapy, use of Dimension [place] TBIL is not recommended. Performed By: #### L 500.4050, L501.2450, L100.0100 #### [facility] [address] [place], [address] BUN/CRE 6.7 RATIO Low 10-20 [facility] Comment on above: Performed By: #### L 500.4050, L501.2450, L100.0100 #### [facility] [address] [place], [address] CA,Total 9.2 mg/dL Normal 8.5-10.1 [facility] Comment on above: Performed By: #### L 500.4050, L501.2450, L100.0100 #### [facility] [address], [address] Chloride [Moles/Vol] 107 mmol/L Normal 98-107 [facility] Comment on above: Performed By: #### L 500.4050, L501.2450, L100.0100 #### [facility] [address] [place], [address] CO2 [Moles/Vol] 25.0 mmol/L Normal 21.0-32.0 [facility] Comment on above: Performed By: #### L 500.4050, L501.2450, L100.0100 #### [facility] [address] [place], [address] Creatinine [Mass/Vol] 0.90 mg/dL Normal 0.55-1.02 [facility] Comment on above: Result Comment: The validity of the calculated GFR GFRAA in patients over 70 years has not been determined. Clinical correlation is essential. Performed By: #### L 500.4050, L501.2450, L100.0100 #### [facility] [address] [place], [address] ECRCL 87.76 ml/min Normal [facility] Comment on above: Performed By: #### L 500.4050, L501.2450, L100.0100 #### [facility] [address] [place], [address] EST GFR - AA 97 mL/min Normal >60 [facility] Comment on above: Result Comment: Afri can [place] GFR Calc Performed By: #### L 500.4050, L501.2450, L100.0100 #### [facility] [address] [place], [address] GAP 6 Normal 5-15 [facility] Comment on above: Performed By: #### L 500.4050, L501.2450, L100.0100 #### [facility] [address], [address] GFR/1.73 sq M.predicted among non-blacks MDRD (S/P/Bld) [Vol rate/Area] 81 mL/min/{1.73_m2} Normal >60 [facility] Comment on above: Result Comment: Non- GFR Calc Performed By: #### L 500.4050, L501.2450, L100.0100 #### [facility] [address] [place], [address] Globulin (S) [Mass/Vol] 4.0 g/dL Normal 2.2-4.2 [facility] Comment on above: Performed By: #### L 500.4050, L501.2450, L100.0100 #### [facility] [address] [place], [address] Glucose [Mass/Vol] 102 mg/dL Normal 74-106 [facility] Comment on above: Result Comment: Fast ing Glucose result from 100 to 125 mg/dL suggests IMPAIRED HOMEOSTASIS per A.D.A. criteria. Performed By: #### L 500.4050, L501.2450, L100.0100 #### [facility] [address], [address] Potassium [Moles/Vol] 3.4 mmol/L Low 3.5-5.1 [facility] Comment on above: Performed By: #### L 500.4050, L501.2450, L100.0100 #### [facility] [address] [place], [address] Sodium [Moles/Vol] 138 mmol/L Normal 136-145 [facility] Comment on above: Performed By: #### L 500.4050, L501.2450, L100.0100 #### [facility] [address] [place], [address] T PROT 7.9 g/dL Normal 6.4-8.2 [facility] Comment on above: Performed By: #### L 500.4050, L501.2450, L100.0100 #### [facility] [facility] [address] [place], [address] Urea nitrogen [Mass/Vol] 6 mg/dL Low 7-18 [facility] Comment on above: Performed By: #### L 500.4050, L501.2450, L100.0100 #### [facility] [address] [place], [address] Emergency Department Summary on 08-19-2024 Emergency Department Summary [facility] Medical Records Department [address] [place] [address] Emergency Department Summary 08/19/24 MR#: [id number] Acct: [id number] Name: CHRISTINA ZUNIGA Rep #: [id number] : 2000 24 From: Jose A Mayfield DO PCP: Care Physician,No Primary Status:REG ER Location: ED HPI History of Present Illness Chief Complaint: Dental [facility] Medical History Anxiety and depression Anxiety Asthma Asthma Home Medications ???Medication ???Instructions ???Recorded ???Last Taken ???Type multivitamin no.47-iron fum 27 1 cap PO DAILY 12/25/23 Unknown History mg-folate no.1 1 mg-dha 300 mg capsule (PNV-DHA) benzonatate 100 mg capsule 100 mg PO TID PRN cough #20 caps 08/08/24 Unknown Rx methylprednisolone 4 mg tablets in See Rx Instructions PO PER PKG DIR 08/08/24 Unknown Rx a dose pack (Medrol (Enrike)) #21 tabs amoxicillin 875 mg-potassium 1 tab PO BID 7 days #14 tabs 08/19/24 Unknown Rx clavulanate 125 mg tablet ondansetron 4 mg disintegrating 4 mg PO Q8H PRN PRN Nausea #10 tabs 08/19/24 Unknown Rx tablet Allergy/AdvReac Type Severity Reaction Status Date / Time No Known Allergies Allergy Verified 08/19/24 14:57 Family History Grandmother Breast cancer Social History adopted: No housing: house number of children: 0 current occupational status: employed current occupation: [employer] sexually active: Yes Smoking Status: Never smoker second hand exposure: Yes alcohol intake: current alcohol intake frequency: holidays/special occasions only substance use type: does not use seatbelt use: always do you feel safe at home: Yes EXAM Physical Exam Const Vital Signs: 08/19/24 14:57 08/19/24 16:37 08/19/24 16:45 Temperature 97 F L Temperature Source Temporal Pulse Rate 137 H 101 H 102 H Respiratory Rate 18 20 H 27 H Blood Pressure 107/84 H 115/83 H Blood Pressure Mean 91 92 Pulse Ox 99 Oxygen Delivery Method Room Air 08/19/24 17:00 08/19/24 17:07 08/19/24 17:23 Temperature 99 F 99 F Temperature Source Oral Pulse Rate 104 H 100 Respiratory Rate 23 H 22 H Blood Pressure 93/79 103/87 H Blood Pressure Mean 86 92 Pulse Ox 97 Oxygen Delivery Method MDM MDM MDM Narrative Medical decision making narrative: HISTORY OF PRESENT ILLNESS: 24-year-old female presents with left-sided toothache. Notes developed several days. She notes last night she started having nausea vomiting diarrhea. She also endorses sore throat. Notes he felt feverish but not checked her temperature. Also notes left-sided abdominal pain and suprapubic pain. Notes family with COVID. States she was tested early week and it was negative. Denies chest pain or shortness of breath. Denies history abdominal surgeries. Denies frequency urgency or dysuria. Denies constipation but notes diarrhea. Denies any melena hematochezia hemoptysis or hematemesis. Denies cough. REVIEW OF SYSTEMS: Pertinent positives: Dental pain, sore throat, nausea and diarrhea, fever Pertinent negatives: Syncope, cough, chest pain, shortness of breath PHYSICAL EXAM: Nursing triage notes reviewed, Vital signs reviewed Constitutional: please see mdm HENT: MMM, no evidence of dental abscess, no submandibular edema or induration, no tonsillar exudates or erythema, uvula midline, patient was controlling secretions, no drooling, no trimus, no dysphonia Eyes: Pupils equal round and reactive to light, Extraocular muscles intact Neck: No stridor, no JVD, full neck ROM Lungs: Clear to auscultation, No wheezing or rales. No increased work of breathing, no conversational dyspnea, no accessory muscle use, no nasal flaring. No respiratory distress noted Heart: Regular rate and rhythm, No murmurs, No rubs and No gallops, 2+ distal pulses (radial, femoral, posterior tibial) in all extremities MEDICAL DECISION MAKING: Chief Complaint: Dental pain External records reviewed: Reviewed prior ED records Factors affecting care: Anxiety, depression, asthma gastroenteritis, Social determinants of health: Denies drug use History obtained from others: None Consults: None [facility] Narrative: The patient was hemodynamically stable, afebrile, nontoxic-appearing. Abdominal exam overall benign with slight suprapubic tenderness. No peritoneal signs. I considered the following differential diagnosis: Dental abscess, ANUG, Ludewig's angina, RPA, SMALL BUSINESS SALES REPRESENTATIVE, dental caries, gingivitis, AAA, small bowel obstruction, abdominal perforation, appendicitis, pa ncreatitis, hepatobiliary pathology (acute cholecystitis), mesenteric ischemia, pathology (ie nephrolithiasis (more content not included)... Normal [facility] Lipaseon 08-19-2024 Lipase [Catalytic activity/Vol] 21 U/L Normal 13-75 [facility] Comment on above: Result Comment: See abdi note: LIPASE revised reference range effective 22. New Lipase methodology. Expected to produce lower values than the previous assay method. NEW Reference Range: 13 - 75 U/L Performed By: #### L 500.4050, L501.2450, L100.0100 #### [facility] [address] [place], [address] M100.678on 08-19-2024 M100.678 Pending SARS-CoV-2 (COVID 19) Negative INFLUENZA A Negative INFLUENZA B Negative RSV PCR Negative Normal [facility] Comment on above: Performed By: #### M 100.678, L400.7600 ####[facility] [address] [place], [address] ,Urineon 08-19-2024 Beta HCG ( test) Ql (U) Negative Normal [facility] Comment on above: Result Comment: Very dilute urine specimens, as indicated by a low specific gravity, may not contain sales representative electric service levels of hCG. If is still suspected, a first morning urine specimen should be collected 48 hours later and tested. Performed By: #### M 100.678, L400.7600 ####[facility] [address] [place], [address] Urinalysis, Completeon 08-19 WBC 5-10 SEEN Normal 0-5 [facility] Comment on above: Order Comment: CLEAN CATCH Performed By: #### L 400.0001 ####[facility] [address] [place], [address] RBC 0-5 SEEN Normal 0-5 [facility] Comment on above: Order Comment: CLEAN CATCH Performed By: #### L 400.0001 ####[facility] [address] [place], [address] BACTERIA 2+ /hpf Normal None Seen [facility] Comment on above: Order Comment: CLEAN CATCH Performed By: #### L 400.0001 ####[facility] [address] [place], [address] EPI,SQUAMOUS 10-25 SEEN Normal 5-10 [facility] Comment on above: Order Comment: CLEAN CATCH Performed By: #### L 400.0001 ####[facility] [address] [place], [address] Mucus Ql (Urine sed) 0 SEEN Normal [facility] Comment on above: Order Comment: CLEAN CATCH Performed By: #### L 400.0001 ####[facility] [address] [place], [address] Urgent Care Visit Reporton 1 10-08-2023 Urgent Care Visit Report [facility] [address], [address] [place] [address] OFFICE VISIT Date of Service: 08/08/24 MR#: [id number] Acct: [id number] Name: CHRISTINA ZUNIGA Rep #: [id number] : 2000 Provider: EUSEBIA Overton Age/Sex: 24/F Location: [facility] Status: Signed Intake Vital Signs 04/18/24 14:55 08/08/24 08:41 Height 5 ft BP 110/70 Blood Pressure Location Lt brachial Position Sitting Respiration 14 Pulse 72 Pulse Source NIBP Temp 97.6 F L Temp Source Oral Pulse Oximetry (%) 100 Oxygen Delivery Method room air Intake Visit Reasons: ZABALA/NAUSEA Chief Complaint: ZABALA/NAUSEA/SINUS DRAINAGE Import Export Coordinator Required: No Is patient in pain?: No Allergies No Known Allergies Allergy (Verified 06/08/24 14:13) Is last menstrual period known: No Post menopausal: No Patient : No Have you fallen in the past year?: No Nurse's Note: patient is here for ZABALA, Nausea, sore throat due to sinus drainage, ran rapid strep, covid/flu test on patient. [facility] Medical History Anxiety and depression Anxiety Asthma Asthma Family History Grandmother Breast cancer Social History adopted: No housing: house number of children: 0 current occupational status: employed current occupation: [employer] sexually active: Yes Smoking Status: Never smoker second hand exposure: Yes alcohol intake: current alcohol intake frequency: holidays/special occasions only substance use type: does not use seatbelt use: always do you feel safe at home: Yes HPI HPI Chief Complaint: ZABALA/NAUSEA/SINUS DRAINAGE Details: CHRISTINA ZUNIGA, is a 24 F who presents to the office today for initial evaluation in the [facility] for approximately 2 day history of persistent ZABALA, Nausea, sore throat due to sinus drainage. Patient notes no complaints of chest pain or shortness of breath or dyspnea on exertion. Several close contacts recently dx???d w/ similar URI complaints. No lqjg-upm-lahkwyl taken to assist. Patient requesting POC screening for COVID-19, influenza, and streptococcal pharyngitis. No other associated symptoms and no other alleviating/aggrava ting factors. ROS Const Constitutional: No other (As above) Exam Const General: cooperative, healthy appearing and no acute distress Orientation: alert, awake and oriented x3 HENMT Head: normal to inspection Ears: hearing grossly normal bilaterally, external ears normal, TM's normal bilaterally and EAC's normal Nose: external nose normal, nares normal, septum normal and clear nasal discharge Face and sinus: normal facial exam, sinuses nontender and face symmetric Mouth: oral mucosae normal, lip normal, tongue normal and oropharynx normal Throat: posterior oropharynx normal, tonsils trace erythema without exudate or hypertrophy, uvula midline and no postnasal drainage Eyes General: appearance normal, both eyes and all related structures Neck Neck: normal visual inspection, full ROM, no lymphadenopathy, no meningeal signs and supple Neck mass: No Thyroid: thyroid normal Lymphatic: no lymphadenopathy noted Chest Chest palpation inspection: normal inspection of the chest Resp Effort Inspection: normal respiratory effort, able to speak in complete sentences and cough Quality of cough: wet (nonproductive in office today) Auscultation: Bilateral: Clear to Auscultation Cardio Palpation: normal PMI Rate: tachycardic Rhythm: regular rhythm Heart Sounds: S1 normal, S2 normal, no gallops, no murmurs and no rubs Pulses: radial pulses present Skin General: no rashes or lesions noted Neuro General: patient alert, patient awake and patient oriented x3 Cognition: normal cognition Speech: speech normal Psych Appearance: grossly normal Mental Status: mental status grossly normal Mood: congruent mood Affect: normal affect Speech and Movement: speech and movement normal Attitude: cooperative Diagnoses Contact with or exposure to other viral diseases Z20.828 URI (upper respiratory infection) J06.9 Assessment and Plan Assessment and Plan (1) Contact with or exposure to other viral diseases: Status: Acute (2) URI (upper respiratory infection): Status: Acute Plan: See POC results. Medrol and Benzonatate as prescribed today. Work excuse provided. Supportive measures as instructed today. Follow-up with PCP in 5 to 7 days should symptoms not improve, ED sooner should symptoms worsen or any other concerns develop. Pt states acknowledging understanding all the above Results POC Rapid Strep A Office Rapid Strep A Negative Last Edit by Muna Cerna on 08/08/24 08:47 POC SARS AG PO (more content not included)... Normal [facility] Urgent Care Visit Reporton 0 06-08-2024 Urgent Care Visit Report [facility] [address] , [address] [place] [address] OFFICE VISIT Date of Service: 06/08/24 MR#: [id number] Acct: [id number] Name: CHRISTINA ZUNIGA Rep #: [id number] : 2000 Provider: EUSEBIA Delgado Age/Sex: 24/F Location: [facility] Status: Signed Intake Vital Signs 04/18/24 14:55 06/08/24 14:13 Height 5 ft Weight: 176 lb 8 oz BMI 34.4 BP 113/78 120/60 Blood Pressure Location Lt brachial Position Sitting Respiration 15 Pulse 73 Pulse Source NIBP Temp 98.6 F Temp Source Temporal Pulse Oximetry (%) 98 Oxygen Delivery Method room air Intake Visit Reasons: CONCERN FOR SINUS INFECTION Chief Complaint: ZABALA, ear pain, PND, BA Import Export Coordinator Required: No Is patient in pain?: Yes Allergies No Known Allergies Allergy (Verified 06/08/24 14:13) Is last menstrual period known: No Post menopausal: No Patient : No Have you fallen in the past year?: No Nurse's Note: ZABALA, ear pain, PND, BA x 24 hours. denies fever, cough, congestion [facility] Medical History Anxiety and depression Anxiety Asthma Asthma Family History Grandmother Breast cancer Social History adopted: No housing: house number of children: 0 current occupational status: employed current occupation: [employer] sexually active: Yes Smoking Status: Never smoker second hand exposure: Yes alcohol intake: current alcohol intake frequency: holidays/special occasions only substance use type: does not use seatbelt use: always do you feel safe at home: Yes HPI HPI Chief Complaint: ZABALA, ear pain, PND, BA Details: CHRISTINA ZUNIGA, is a 24 F who presents to the office today for complaint of headache, ear pain, nausea with diarrhea yesterday. Patient states that the nausea and diarrhea have resolved however she continues to have the headache and ear pain. No fever, chills, sweats. No hematochezia, hematemesis or hemoptysis. No other associated symptoms or alleviating/aggrava ting factors. ROS Const Constitutional: No other (as above) Exam Const General: cooperative and healthy appearing HENMT Head: normocephalic and atraumatic Ears: hearing grossly normal bilaterally, TM's normal bilaterally and EAC's normal Face and sinus: face symmetric Eyes General: appearance normal, both eyes and all related structures Pupils: PERRL Resp Effort Inspection: normal respiratory effort Auscultation: Bilateral: Clear to Auscultation Cardio Rate: regular rate Rhythm: regular rhythm GI Inspection: normal to inspection Auscultation: hyperactive bowel sounds Percussion: normal to percussion Palpation: soft, no hepatosplenomegaly, no guarding and nontender General: bimanual renal exam normal bilaterally and No CVA tenderness Skin General: no rashes or lesions noted Neuro General: patient alert and CN's II-XI intact bilaterally Psych Appearance: grossly normal Mental Status: mental status grossly normal Results POC FLU A B Office Flu A B Negative FLU A B Last Edit by Светлана Sun on 06/08/24 14:23 POC SARS AG POC SARS AG Negative Last Edit by Светлана Sun on 06/08/24 14:23 Coding Level of Care Code Off vis,est,level 3 Diagnoses Gastroenteritis K52.9 Acute upper respiratory infection J06.9 Assessment and Plan Assessment and Plan (1) Gastroenteritis: Status: Acute (2) Acute upper respiratory infection: Status: Acute Orders: Orders POC FLU A B Today R51.9 - Headache, unspecified POC Rapid SARS Antigen Today Medications: New methylprednisolone (Medrol (Enrike)) 4 mg PO PER PKG DIR 6 days 21 tabs 0RF Plan Patient tested negative for influenza and COVID in the office today. Encouraged to get plenty of rest, drink lots of clear liquids, and use Tylenol or Ibuprofen (unless contraindicated) for fever and comfort. Patient also educated on other symptomatic management techniques. To be seen in 7-10 days if no improvement; sooner if worsening of symptoms. Patient advised of potential red flags and when appropriate to report to the ED. Patient verbalized understanding and agreement with all the above. Clinical Quality Measures Falls Risk Screening/Assistive Devices Have you fallen in the past year?: No 06/08/24 1457 Date John Carrillo Signature: Date (if applicable) CC: Normal [facility] Anticardiolipin IgG, IgMon 0 9-16 Anticardio.IgG < 9 Normal 0-14 [facility] Comment on above: Result Comment: Nega tive: <15 Indeterminate: 15 - 20 Low-Med Positive: >20 - 80 High Positive: >80 Performed By: #### L 900.0098, L3410.1999, L4500.0100, L3100.8410 ####[facility] [address] [place], [address] Anticardio.IgM < 9 Normal 0-12 [facility] Comment on above: Result Comment: Nega tive: <13 Indeterminate: 13 - 20 Low-Med Positive: >20 - 80 High Positive: >80 Performed at: [facility] [address] [id number] Soap Tender: Siena Bingham MD, Phone: [phone] Performed at: [facility] [address] [id number] Soap Tender: Giorgio Butt PhD, Phone: [phone] Performed By: #### L 900.0098, L3410.1999, L4500.0100, L3100.8410 ####[facility] [address] [place], [address] Beta-2 Glycoprot IgG, A, 05-29-2024 B2 GLYCO I IGA <9 Normal 0-25 [facility] Comment on above: Result Comment: Resu lt Units: GPI IgA units The reference interval reflects a 3SD or 99th percentile interval, which is thought to represent a potentially clinically significant result in accordance with the International Consensus Statement on the classification criteria for definitive antiphospholipid syndrome (APS). J Thromb Haem 2006;4:295-306. Performed By: #### L 900.0098, L3410.1999, L4500.0100, L3100.8410 ####[facility] [address] [place], [address] B2 GLYCO I IGG <9 Normal 0-20 [facility] Comment on above: Result Comment: Resu lt Units: GPI IgG units The reference interval reflects a 3SD or 99th percentile interval, which is thought to represent a potentially clinically significant result in accordance with the International Consensus Statement on the classification criteria for definitive antiphospholipid syndrome (APS). J Thromb Haem 2006;4:295-306. Performed By: #### L 900.0098, L3410.1999, L4500.0100, L3100.8410 ####[facility] [address] [place], [address] B2 GLYCO I IGM <9 Normal 0-32 [facility] Comment on above: Result Comment: Resu lt Units: GPI IgM units The reference interval reflects a 3SD or 99th percentile interval, which is thought to represent a potentially clinically significant result in accordance with the International Consensus Statement on the classification criteria for definitive antiphospholipid syndrome (APS). J Thromb Haem 2006;4:295-306. Performed By: #### L 900.0098, L3410.1999, L4500.0100, L3100.8410 ####[facility] [address] [place], [address] Lupus Anticoagulant Compon 0 05-29-2024 aPTT Coag (Bld) [Time] 42.4 s Normal 0.0-43.5 [facility] Comment on above: Performed By: #### L 900.0098, L3410.1999, L4500.0100, L3100.8410 ####[facility] [address] [place], [address] DILUTE PT (dPT) 36.4 sec Normal 0.0-47.6 [facility] Comment on above: Performed By: #### L 900.0098, L3410.1999, L4500.0100, L3100.8410 ####[facility] [address] [place], [address] dPT Conf. Ratio 1.01 Ratio Normal 0.00-1.34 [facility] Comment on above: Performed By: #### L 900.0098, L3410.1999, L4500.0100, L3100.8410 ####[facility] [address] [place], [address] DRVVT 38.5 sec Normal 0.0-47.0 [facility] Comment on above: Performed By: #### L 900.0098, L3410.1999, L4500.0100, L3100.8410 ####[facility] [address] [place], [address] Interpretation Comment: Normal . [facility] Comment on above: Result Comment: No l upus anticoagulant was detected. Performed By: #### L 900.0098, L3410.1999, L4500.0100, L3100.8410 ####[facility] [address] [place], [address] THROMBIN TIME 15.9 sec Normal 0.0-23.0 [facility] Comment on above: Performed By: #### L 900.0098, L3410.1999, L4500.0100, L3100.8410 ####[facility] [address] [place], [address] NATERAon 05-25-2024 NATURA SEE SCANNED REPORT Normal [facility] Comment on above: Performed By: #### L 900.0098, L3410.2000, L4500.0100, L3100.8410 ####[facility] [address] [place], [address] Anticardiolipin IgG, IgMon 0 - Anticardio.IgM 10 MPL U/mL Normal 0-12 [facility] Comment on above: Result Comment: Nega tive: <13 Indeterminate: 13 - 20 Low-Med Positive: >20 - 80 High Positive: >80 Performed By: #### L 3100.8410, L501.9520, L3300.6900, L506.0400, L4500.0100, L3410.1999 ####[facility] [address] [place], [address] Beta-2 Glycoprot IgG, A, 04-25-2024 B2 GLYCO I IGA <9 Normal 0-25 [facility] Comment on above: Result Comment: Resu lt Units: GPI IgA units The reference interval reflects a 3SD or 99th percentile interval, which is thought to represent a potentially clinically significant result in accordance with the International Consensus Statement on the classification criteria for definitive antiphospholipid syndrome (APS). J Thromb Haem 2006;4:295-306. Performed By: #### L 3100.8410, L501.9520, L3300.6900, L506.0400, L4500.0100, L3410.1999 ####[facility] [address] [place], [address] B2 GLYCO I IGG <9 Normal 0-20 [facility] Comment on above: Result Comment: Resu lt Units: GPI IgG units The reference interval reflects a 3SD or 99th percentile interval, which is thought to represent a potentially clinically significant result in accordance with the International Consensus Statement on the classification criteria for definitive antiphospholipid syndrome (APS). J Thromb Haem 2006;4:295-306. Performed By: #### L 3100.8410, L501.9520, L3300.6900, L506.0400, L4500.0100, L3410.1999 ####[facility] [address] [place], [address] B2 GLYCO I IGM <9 Normal 0-32 [facility] Comment on above: Result Comment: Resu lt Units: GPI IgM units The reference interval reflects a 3SD or 99th percentile interval, which is thought to represent a potentially clinically significant result in accordance with the International Consensus Statement on the classification criteria for definitive antiphospholipid syndrome (APS). J Thromb Haem 2006;4:295-306. Performed By: #### L 3100.8410, L501.9520, L3300.6900, L506.0400, L4500.0100, L3410.1999 ####[facility] [address] [place], [place], [address] Lupus Anticoagulant Compon 0 - aPTT Coag (Bld) [Time] 43.9 s High 0.0-43.5 [facility] Comment on above: Performed By: #### L 3100.8410, L501.9520, L3300.6900, L506.0400, L4500.0100, L3410.1999 ####[facility] [address] [place], [address] aPTT Coag (Bld) [Time] 40.5 s Normal 0.0-40.5 [facility] Comment on above: Performed By: #### L 3100.8410, L501.9520, L3300.6900, L506.0400, L4500.0100, L3410.1999 ####[facility] [address] [place], [address] aPTT Coag (Bld) [Time] 42.1 s High 0.0-40.5 [facility] Comment on above: Performed By: #### L 3100.8410, L501.9520, L3300.6900, L506.0400, L4500.0100, L3410.1999 ####[facility] [address] [place], [address] DILUTE PT (dPT) 34.4 sec Normal 0.0-47.6 [facility] Comment on above: Performed By: #### L 3100.8410, L501.9520, L3300.6900, L506.0400, L4500.0100, L3410.1999 ####[facility] [facility] [address] [place], [address] dPT Conf. Ratio 1.04 Ratio Normal 0.00-1.34 [facility] Comment on above: Performed By: #### L 3100.8410, L501.9520, L3300.6900, L506.0400, L4500.0100, L3410.1999 ####[facility] [address] [place], [address] DRVVT 45.6 sec Normal 0.0-47.0 [facility] Comment on above: Performed By: #### L 3100.8410, L501.9520, L3300.6900, L506.0400, L4500.0100, L3410.1999 ####[facility] [address] [place], [address] HEX PHAS PHOSPH 4 sec Normal 0-11 [facility] Comment on above: Performed By: #### L 3100.8410, L501.9520, L3300.6900, L506.0400, L4500.0100, L3410.1999 ####[facility] [address] [place], [address] Interpretation Comment: Normal . [facility] Comment on above: Result Comment: No l upus anticoagulant was detected. Results suggest the presence of a weak inhibitor. It should be noted that mixing studies performed on samples with minimally extended PTT-LA results can be equivocal. The presence of heparin, which is a non-specific inhibitor, may cause this pattern of results. Since the PTT-LA was extended and the dRVVT was within normal limits, a specific inhibitor to factor VIII, IX, XI, or XII cannot be excluded. As antibody titers may fluctuate with time, repeat testing may be indicated and ideally should be performed in the absence of anticoagulant therapy. Performed By: #### L 3100.8410, L501.9520, L3300.6900, L506.0400, L4500.0100, L3410.1999 ####[facility] [address] [place], [place], [address] THROMBIN TIME 16.7 sec Normal 0.0-23.0 [facility] Comment on above: Performed By: #### L 3100.8410, L501.9520, L3300.6900, L506.0400, L4500.0100, L3410.1999 ####[facility] [address] [place], [place], [address] Thyroid Peroxidase ABon - THYR PEROX AB < 9 Normal 0-34 [facility] Comment on above: Result Comment: Perf ormed at: [facility] [address] [id number] Soap Tender: Siena Bingham MD, Phone: [phone] Performed at: [facility] [address] [id number] Soap Tender: Giorgio Butt PhD, Phone: [phone] Performed By: #### L 3100.8410, L501.9520, L3300.6900, L506.0400, L4500.0100, L3410.1999 ####[facility] [address] [place], [place], [address] Microarray Analyst Office Visit Reporton 04-18-2024 Microarray Analyst Office Visit Report [facility] [address] [place], [place] [address] OFFICE VISIT Date of Service: 04/18/24 MR#: [id number] Acct: [id number] Name: CHRISTINA ZUNIGA Rep #: [id number] : 2000 Provider: BATOOL womack Age/Sex: 24/F Location[place] [facility] [place] Status: Signed Intake Vital Signs 01/18/24 11:16 04/18/24 14:55 Height 5 ft 5 ft Weight: 176 lb 8 oz BMI 34.4 BP 113/78 Intake Visit Reasons: Discuss recurrent miscarriage Chief Complaint: Discuss recurrent miscarriage Import Export Coordinator Required: No Is patient in pain?: No Allergies No Known Allergies Allergy (Verified 04/18/24 14:53) Medications ???Medication ???Instructions ???Recorded ???Confirmed ???Type multivitamin no.47-iron fum 27 1 cap PO DAILY 12/25/23 04/18/24 History mg-folate no.1 1 mg-dha 300 mg capsule (PNV-DHA) Is last menstrual period known: Yes Last Menstrual Period: 02/29/24 Post menopausal: No Patient : No : No PFSH Medical History Anxiety and depression Anxiety Asthma Asthma Family History Grandmother Breast cancer Social History adopted: No housing: house number of children: 0 current occupational status: employed current occupation: [employer] sexually active: Yes Smoking Status: Never smoker second hand exposure: Yes alcohol intake: current alcohol intake frequency: holidays/special occasions only substance use type: does not use seatbelt use: always do you feel safe at home: Yes HPI Discuss recurrent miscarriage Details: CHRISTINA ZUNIGA is a 24 year old who presents for discussion of recurrent miscarriages. She had SAB in December 2023 and again March 2024. She had a normal US 04/14/24. Same sexual partner. Denies STD concerns or past history of STDs. She does state that miscarriages have been problematic for her boyfriend's mother and 2 sisters. Female Reproductive History Last Menstrual Period: 02/29/24 History 0 Elective abortions Hx Para Spontaneous abortions Hx # Term Pregnancies Ectopic pregnancies Hx # Pregnancies Multiple births # of living children ROS Const Constitutional: Reports system reviewed and no additional complaints, except as documented Eyes Eyes: Reports system reviewed and no additional complaints, except as documented GI GI: Denies abdominal pain or change in bowel habits : Reports as per HPI Exam Const General: cooperative and no acute distress Orientation: oriented x3 HENMT Head: normal to inspection and normocephalic Eyes General: appearance normal, both eyes and all related structures Neck Neck: normal visual inspection Resp Effort Inspection: normal respiratory effort Neuro Cognition: normal cognition Speech: speech normal Psych Appearance: grossly normal Mood: congruent mood Affect: normal affect Speech and Movement: speech and movement normal Attitude: cooperative Judgment: judgment good Coding Level of Care Code Off vis,est,level 3 Diagnoses History of recurrent miscarriages N96 Assessment and Plan Assessment and Plan (1) History of recurrent miscarriages: Status: Acute Comment: [facility] 12/2023 and 03/2024 Orders: Orders Beta-2 Glycoprot IgG, A, M Today N96 - Recurrent loss Lupus Anticoagulant Comp Today N96 - Recurrent loss Anticardiolipin IgG, IgM Today N96 - Recurrent loss Thyroid Stim Hormone (TSH) Today Z87.59 - Personal history of other complications of , childbirth and the puerperium T4 Free Direct Today Z87.59 - Personal history of other complications of , childbirth and the puerperium Thyroid Peroxidase AB Today Z87.59 - Personal history of other complications of , childbirth and the puerperium Plan Proceed with APL panel, thyroid labs. If normal will have patient do HSG plus she and partner will do genetic carrier testing. Management will be dependent on this results. 04/18/24 1523 Date Stephany Colby NP CUPOLA HOIST OPERATOR-C Cosigner Signature: Date (if applicable) CC: Normal [facility] T4 Free Directon 04-18-2024 T4 FREE DIRECT 0.78 ng/dL Normal 0.76-1.46 [facility] Comment on above: Performed By: #### L 3100.8410, L501.9520, L3300.6900, L506.0400, L4500.0100, L3410.1999 ####[facility] [address] [place], [address] Thyroid Stim Hormone (TSH)on 04-18-2024 TSH 2.54 uIU/mL Normal 0.358-3.74 [facility] Comment on above: Performed By: #### L 3100.8410, L501.9520, L3300.6900, L506.0400, L4500.0100, L3410.1999 ####[facility] [address] [place], [address] Transvaginal w/Preg USon Transvaginal w/Preg US [facility] Imaging Services [address] [facility] [place] [address] Transvaginal w/Preg US MR#: [id number] Acct: [id number] Name: CHRISTINA ZUNIGA Rep #: [id number] : 2000 F 24 From: Neo diaz DO PCP: Care Physician,No Primary Status: [facility] CL Study: Transvaginal w/Preg US Date of Exam: 04/14/24 Exam# [id number] Ordering Dr: Sara Olmedo DO -[id number] EXAM: US , TRANSVAGINAL CLINICAL INDICATION: viability TECHNIQUE: Real-time transvaginal obstetrical ultrasound of the maternal pelvis and a first trimester with image documentation. Transvaginal imaging was used for better evaluation of the fetus and adnexa. COMPARISON: 12/25/2023 FINDINGS: GESTATION: No IUP is identified. PLACENTA/AMNIOTIC FLUID: Cannot be adequately evaluated due to the early gestational age. UTERUS/CERVIX: The cervix is closed. No myometrial mass. The uterus measures 7.7 x 5.2 x 3.8 cm. OVARIES: No significant abnormality. No mass. The right ovary measures 1.6 x 1.4 x 2.4 cm. The left ovary measures 2.3 x 2.4 x 2.0 cm. FREE FLUID: No free fluid. US/Transvaginal w/Preg US IMPRESSION: No IUP is identified. Normal appearance of the endometrial canal. No acute findings. Electronically Signed: Neo Patel DO at 23:34 EDT , CC: Dr. Sara Olmedo, ; No Primary Care Physician Link Trainer Mechanic: Signed Normal [facility] hCG Titer Quant., Serumon HCG QUANT. 3 mIU/mL Normal 1-3 [facility] Comment on above: Order Comment: DID A VERVAL WILL CALL THE ON WEDNESDAY TO GET AN ORDER.[id number] Result Comment: hCG levels with Gestational Age Gestational Age hCG mIU/mL (IU/L) 0.2 - 1 week 5 - 50 1-2 weeks 50 - 500 2-3 weeks 100 - 5000 3-4 weeks 500 - 05956 4-5 weeks 1000 - 12125 5-6 weeks 24797 - 100,000 6-8 weeks 09543 - 200,000 2-3 months 19607 - 100,000 Performed By: #### L 700.8000 ####[facility] [address] [place], [place], [address] hCG Titer Quant., Serumon HCG QUANT. 5 mIU/mL High 1-3 [facility] Comment on above: Performed By: #### L 700.8000 #### [facility] [address] [place], [place], [address] CNOVon 02-10-2024 CNOV Office Visit (PODIWS) ---- CHRISTINA ZUNIGA ([id number]) 2000 F [place] Date Time Provider Department 02/10/24 10:30 AM ROBAMANDA ALFONSO PATIÑO During your visit today, we recorded the following information about you: Araceli Rowe RN 02/10/2024 12:09 PM Signed AMB ROOMING INTAKE FLOWSHEET DATA Risk Screening Do you have concerns about personal safety or safety in the home?: No Pain Pain Level: 3 Pain Location: Ankle-Right Description: Sore Duration Units: Years Frequency: Intermittent Intervention/Comfor t measure: Relaxation, Reposition Patient presents with: Right Ankle - New, Pain Right Foot - New, Pain Patient presents for intermittent right foot and ankle pain that has been intermittent over a few years. Pain is worse when on her feet too long. States that soaking her ankle helps some. Was told that she had achilles tendonitis and plantar fasciitis from a physician outside of the clinic. Used to have pneumatic boot but can no longer find it and has a night splint for when she needs it. XR prior to appointment. Alfonso Tuttle 02/10/2024 12:09 PM Signed Initial Podiatric Office Visit: Chief Complaint: This 24 year old female who presents with chief complaint:right ankle pain HPI Patient presents to clinic with complaint of posterior ankle pain, right lower extremity Has sorness to the back of right heel that has been present for about one year Pain is worse the more active she is. She denies injury Saw Dr. Woods who treated her for plantar fasciitis and achilles tendonitis Was treated with pneumatic boot off/on for about 2-3 weeks Was also doing physical therapy for about one month Also treated with night splint. Patient has over the counter inserts but states she is mostly barefoot or wearing crocs Patient has done stretching. Nothing seems to be helping PAIN EVALUATION 02/10/2024 1047 Pain Level: 3 Pain Location: Ankle-Right Description: Sore Duration Units: Years Frequency: Intermittent Intervention/Comfor t measure: Relaxation;Repositi on No results found for: HBA1C PCP: No primary care provider on file. No past medical history on file. Current Outpatient Medications Medication Sig albuterol HFA (PROVENTIL HFA, VENTOLIN HFA) 90 mcg/actuation inhaler Inhale 2 Puffs as instructed every 6 hours as needed for wheezing/shortness of breath. No current facility-administer ed medications for this visit. ALLERGIES No Known Allergies No past surgical history on file. No family history on file. Social History Tobacco Use Smoking status: Never Smokeless tobacco: Never Vaping Use Vaping Use: current everyday user Substances: Nicotine Substance Use Topics Alcohol use: Yes Comment: occasionally Drug use: Never REVIEW OF SYSTEMS GENERAL: Negative for Malaise, significant weight loss, fever RESPIRATORY: Negative for cough, wheezing and shortness of breath CARDIOVASCULAR: Negative for chest pain, leg swelling and palpitations GI: Negative for abdominal discomfort, blood in stools or black stools and change in bowel habits : Negative for dysuria, frequency and incontinence MUSCULOSKELETAL: Negative for joint pain or swelling, back pain, and muscle pain. SKIN: Negative for lesions, rash, and itching. HEMATOLOGY/LYMPHOLO GY Negative for prolonged bleeding, bruising easily, and swollen nodes. ENDOCRINE: Negative for cold or heat intolerance, polyuria, polydipsia and goiter. NEURO: negative Physical Exam: Constitutional: Pt is a well developed 24 year old female who is alert, oriented and cooperative Eyes: Following during examination. No redness or drainage. Respiratory: RR normal and nonlabored. Even breathing. No evidence of distress or shortness of breath. Psychology: Patient is engaged during conversation. Normal affect and mood. Does not appear depressed or anxious during encounter. Vascular: Dorsalis pedis and posterior tibial pulses palpable as b/l Capillary Fill time < 5 seconds to digits 1-5 b/l Skin temperature warm to warm proximal to distal b/l Hair growth present to digits Neurological: intact light touch/epicritic sensation b/l intact protective sensation no significant neurological deficits Dermatological: Nails 1-5 b/l appear normal. Webspaces clean and dry 1-4 b/l. Skin appears well hydrated and supple. good color, texture, turgor. No open lesions present. No callosities present. Musculoskeletal/Ort hopaedic: Patient has pain to palpation of right achilles tendon. Telles test produces plantarflexion. No bulbous thickening of right achilles. Foot type is pronated structurally AJ ROM is full with knee extended and flexed 1st MPJ is full when loaded and no pain or crepitus are noted with ROM. MTJ, STJ are full and free of pain and crepitus. +5/5 muscle strength dorsiflexion, plantarflexion, invers (more content not included)... Normal [facility] XR FOOT 3V AP/LAT/OBL RTon 0 02-10-2024 XR FOOT 3V AP/LAT/OBL RT * * *Final Repo rt* * * DATE OF EXAM: Feb 10 2024 9:51AM [id number] [id number] - XR FOOT 3V AP/LAT/OBL RT / PROCEDURE REASON: Pain * * * * Physician Interpretation * * * * EXAMINATION: XR FOOT 3V AP/LAT/OBL RT CLINICAL HISTORY: Right foot pain Technique: XR FOOT 3V AP/LAT/OBL RT -- RIGHT with 3 views on 3 images Comparison: None RESULT: No acute fracture or dislocation. Joint spaces are maintained. IMPRESSION: No acute osseous abnormality Link Trainer Mechanic: PSCNavarro Transcribe Date/Time: Feb 15 2024 2:07P Dictated by : CHHAYA GOVEA MD This examination was interpreted and the report reviewed and electronically signed by: CHHAYA GOVEA MD on Feb 15 2024 2:09PM EST [id number] Normal [facility] Chlamydia trachomatis rRNA d etection by probe and target amplification methodOrdered By: Stephany Colby on 01-18-2024 C. trachomatis rRNA NEISHA+probe Ql (Unsp spec) Negative Negative [facility] HIV 1 and HIV-2 antibody ass ay with HIV-1 p24 antigen detectionOrdered By: Stephany Colby on 01-18-2024 HIV 1+2 Ab+HIV1 p24 Ag IA Ql Non-Reactive Nonreactive [facility] Laboratory - Microbiology an d Antimicrobial susceptibilityOrdered By: Stephany Colby on 01-18-2024 N. gonorrhoeae DNA NEISHA+probe Ql (Unsp spec) Negative Negative [facility] Comment on above: Performed at: =[facility] Jermaine fisher [address] [id number] Director: Vida Schmidt MD, Phone: [phone] No Panel InformationOrdered By: Stephany Colby on 01-18-2024 Hepatitis C Antibody Non-Reactive Nonreactive [facility] Comment on above: Non Reactive: < 0.8 Equivocal: >/= 0.8 to < 1.0 Reactive: >/= 1.0The CDC requires that a reactive/equivocal HCV antibody result be sent out for confirmation. HCV Quant by PCR testing. Herpes Simplex Virus I IgG Antibody < 0.91 index 0.00-0.90 [facility] Comment on above: Negative <0.91 Equiv ocal 0.91 - 1.09 Positive >1.09 Note: Negative indicates no antibodies detected to HSV-1. Equivocal may suggest early infection. If clinically appropriate, retest at later date. Positive indicates antibodies detected to HSV-1. No Panel Informationon 01-17 POC Trichomonas (Rapid) Negative [facility] Serum Treponema species anti body detectionOrdered By: Stephany Colby on 01-18-2024 Treponema sp Ab Ql (S) Non-Reactive [facility] Serum herpes simplex virus 2 antibody assay by immunoassay (units/volume)Ordered By: Stephany Colby on 01-18-2024 HSV 2 Ab IA Qn (S) 4.18 index 0.00-0.90 [facility] Comment on above: Negative <0.91 Equiv ocal 0.91 - 1.09 Positive >1.09 HSV-2 Antibody Interpretation: Current guidelines and recommendations do not recommend routine screening for HSV-2 in asymptomatic individuals, including those that are . A negative antibody result indicates no detectable antibodies to HSV-2 were found. If recent exposure is suspected, retest in 4 to 6 weeks. Equivocal samples should be retested in 4 to 6 weeks. A positive result indicates the presence of detectable IgG antibody to HSV-2. FALSE POSITIVE RESULTS MAY OCCUR. Repeat testing, or testing by a different method, may be indicated in some settings (e.g. patients with low likelihood of HSV infection). If clinically appropriate, retest 4 to 6 weeks later. HSV-2 IgG antibody testing results should be clinically correlated.Performed at: [email or web address] [id number] Director: Giorgio Butt PhD, Phone: [phone] Serum or plasma choriogonado tropin detectionOrdered By: Kamran Fiore on 12-27-2023 HCG ( test) Ql 2 mIU/mL <4 [facility] Comment on above: hCG levels with Gest ational AgeGestational Age hCG mIU/mL (IU/L)0.2 - 1 week 5 - 501-2 weeks 50 - 5002-3 weeks 100 - 11361-4 weeks 500 - 846247-4 weeks 1000 - 111227-1 weeks 28212 - 100,0006-8 weeks 61405 - 200,0002-3 months 20319 - 100,000 Absolute lymphocyte countOrd ered By: Jone Tracey on 12-25-2023 Lymphocytes Auto (Unsp spec) [#/Vol] 3.77 10*3/uL 0.83-4.51 [facility] Automated lymphocyte count a s percentage of total leukocytesOrdered By: Jone Tracey on 12-25-2023 Lymphocytes/100 WBC Auto (Unsp spec) 29.8 % 19-41 [facility] Basophil percentageOrdered B y: oJne Tracey on 12-25-2023 Basophil percentage 5-10 SEEN /hpf 0-5 [facility] Basophils/100 WBC (Bld) 0.6 % 0-1 [facility] Bilirubin [Mass/Vol] 0.60 mg/dL 0.20-1.00 [facility] Comment on above: For patients on eltr ombopag therapy, use of Dimension [place] TBIL is not recommended. Chloride [Moles/Vol] 110 mmol/L 98-107 [facility] Eosinophils/100 WBC (Bld) 2.0 % 0-5 [facility] Glucose [Mass/Vol] 89 mg/dL 74-106 [facility] Hemoglobin (Bld) [Mass/Vol] 11.6 g/dL 12.0-15.0 [facility] Monocytes/100 WBC (Bld) 4.2 % 0-10 [facility] Neutrophils (Bld) [#/Vol] 8.0 10*3/uL 2.0-7.7 [facility] Neutrophils/100 WBC (Bld) 63.0 % 47-70 [facility] Potassium [Moles/Vol] 3.9 mmol/L 3.5-5.1 [facility] Comment on above: Slight Hemolysis, Re sult may be falsely increased. Protein [Mass/Vol] 7.3 g/dL 6.4-8.2 [facility] Sodium [Moles/Vol] 140 mmol/L 136-145 [facility] WBC (Bld) [#/Vol] 12.6 10*3/uL 4.4-11.0 [facility] Bilirubin Test strip Ql (U)O rdered By: Jone Tracey on 12-25-2023 Bilirubin Ql (U) Negative Negative [facility] Culture, urineOrdered By: Eusebia Tracey on 12-25-2023 Bacteria identified Cx Nom (U) Positive [facility] Determination of erythrocyte mean corpuscular volume (MCV)Ordered By: Jone Tracey on 12-25-2023 MCV (RBC) [Entitic vol] 87.0 fL 81-99 [facility] Erythrocyte distribution wid th ratioOrdered By: Jone Tracey on 12-25-2023 Erythrocyte distribution width (RBC) [Ratio] 13.2 % 11.6-14.6 [facility] Erythrocyte distribution wid th standard deviationOrdered By: Jone Tracey on 12-25-2023 Erythrocyte distribution width (RBC) [Entitic vol] 41.4 fL 35.1-43.9 [facility] Hematocrit Auto (Bld) [Volum e fraction]Ordered By: Jone Tracey on 12-25-2023 Hematocrit (Bld) [Volume fraction] 36.0 % 37-47 [facility] Immature granulocytes/100 WB C Auto (Bld)Ordered By: Jone Tracey on 12-25-2023 Immature granulocytes/100 WBC (Bld) 0.400 % 0.0-0.9 [facility] Comment on above: IG% - Immature Granu locytes (promyelocytes, myelocytes and metamyelocytes) > 1% indicates that a LEFT SHIFT is Present. Ketones Test strip Ql (U)Ord ered By: Jone Tracey on 12-25-2023 Ketones Ql (U) Negative Negative [facility] Laboratory - Chemistry and C hemistry - challengeOrdered By: Jone Tracey on 12-25-2023 Albumin/Globulin [Mass ratio] 1.0 {ratio} 0.9-2.4 [facility] ALP [Catalytic activity/Vol] 82 U/L 45-117 [facility] ALT [Catalytic activity/Vol] 18 U/L 13-56 [facility] CO2 [Moles/Vol] 27.0 mmol/L 21.0-32.0 [facility] Globulin (S) [Mass/Vol] 3.7 g/dL 2.2-4.2 [facility] Urea nitrogen/Creatinine [Mass ratio] 9.6 mg/mg 10-20 [facility] Laboratory - Hematology and Cell countsOrdered By: Jone Tracey on 12-25-2023 MCH (RBC) [Entitic mass] 28.0 pg 27.0-32.0 [facility] MCHC (RBC) [Mass/Vol] 32.2 g/dL 32-36 [facility] Nucleated RBC/100 WBC (Bld) [Ratio] 0 % 0-5 [facility] Platelet mean volume (Bld) [Entitic vol] 9.8 fL 6.2-12.0 [facility] Platelets (Bld) [#/Vol] 367 10*3/uL 150-450 [facility] Mucus LM Ql (Urine sed)Order ed By: Jone Tracey on 12-25-2023 Mucus Ql (Urine sed) 0 SEEN /hpf [facility] Nitrite Test strip Ql (U)Ord ered By: Jone Tracey on 12-25-2023 Nitrite Ql (U) Negative Negative [facility] No Panel InformationOrdered By: Jone Tracey on 12-25-2023 Urine RBC 0 SEEN /hpf 0-5 [facility] Estimated Creatinine Clearance Calc 111.17 ml/min [facility] Estimated GFR (MDRD) Amer 124 mL/min >60 [facility] Comment on above: GFR Calc Estimated GFR (MDRD) Non-Af Amer 102 mL/min >60 [facility] Comment on above: Non- GFR Calc Protein Test strip Ql (U)Ord ered By: Jone Tracey on 12-25-2023 Protein Ql (U) 15 mg/dl Negative [facility] RBC Auto (Bld) [#/Vol]Ordere d By: Jone Tracey on 12-25-2023 RBC (Bld) [#/Vol] 4.14 10*6/uL 4.2-5.4 [facility] Serum or plasma calcium stas urement (mass/volume)Ordered By: Jone Tracey on 12-25-2023 Calcium [Mass/Vol] 9.2 mg/dL 8.5-10.1 [facility] Serum or plasma choriogonado tropin detectionOrdered By: Germania Mar on 12-25-2023 HCG ( test) Ql 9 mIU/mL <4 [facility] Serum or plasma creatinine m easurement (mass/volume)Ordered By: Jone Tracey on 12-25-2023 Creatinine [Mass/Vol] 0.73 mg/dL 0.55-1.02 [facility] Comment on above: The validity of the calculated GFR & GFRAA in patients over 70 years has not been determined. Clinical correlation is essential. Serum or plasma urea nitroge n measurement (mass/volume)Ordered By: Jone Tracey on 12-25-2023 Urea nitrogen [Mass/Vol] 7 mg/dL 7-18 [facility] Squamous epithelial cells de tection in urine sediment by light microscopyOrdered By: Jone Tracey on 12-25-2023 Epithelial cells.squamous LM Ql (Urine sed) 0-5 SEEN /hpf 5-10 [facility] Thin prep Papanicolaou smear with manual screeningOrdered By: Jone Tracey on 12-25-2023 Thin prep Papanicolaou smear with manual screening 3.6 g/dL 3.2-5.0 [facility] Thin prep Papanicolaou smear with manual screening 20 U/L 15-37 [facility] Comment on above: Slight Hemolysis, Re sult may be falsely increased. Thin prep Papanicolaou smear with manual screening 3 5-15 [facility] Urine blood detectionOrdered By: Jone Tracey on 12-25-2023 RBC Ql (U) 250 /ul Negative [facility] Urine clarityOrdered By: Bella Tracey on 12-25-2023 Clarity (U) Clear Clear [facility] Urine color determinationOrd ered By: Jone Tracey on 12-25-2023 Color (U) Yellow Yellow [facility] Urine glucose detectionOrder ed By: Jone Tracey on 12-25-2023 Glucose Ql (U) Normal mg/dl Normal [facility] Urine leukocyte esterase det ection by dipstickOrdered By: Jone Tracey on 12-25-2023 Leukocyte esterase Test strip Ql (U) 500 /ul Negative [facility] Urine pHOrdered By: Jone barcenas on 12-25-2023 pH (U) 7.0 [pH] 5.0 - 8.0 [facility] Urine sediment bacteria coun t by microscopy (number/high power field)Ordered By: Jone Tracey on 12-25-2023 Bacteria LM.HPF (Urine sed) [#/Area] 1 /[HPF] None Seen [facility] Urine specific gravity measu rementOrdered By: Jone Tracey on 12-25-2023 Specific gravity (U) [Rel density] 1.015 1.002-1.030 [facility] Urine urobilinogen measureme ntOrdered By: Jone Tracey on 12-25-2023 Urobilinogen Ql (U) Normal mg/dl Normal [facility] Serum or plasma choriogonado tropin detectionOrdered By: Germania Mar on 12-23-2023 HCG ( test) Ql 27 mIU/mL <4 [facility] Comment on above: hCG levels with Gest ational AgeGestational Age hCG mIU/mL (IU/L)0.2 - 1 week 5 - 501-2 weeks 50 - 5002-3 weeks 100 - 45074-5 weeks 500 - 286210-8 weeks 1000 - 673427-5 weeks 89960 - 100,0006-8 weeks 40736 - 200,0002-3 months 20854 - 100,000 No Panel Informationon 10-26 Influenza Types A,B Rapid (Clinic) Negative [facility] POC SARS CoV-2 Antigen Negative [facility] Chlamydia trachomatis rRNA d etection by probe and target amplification methodon 07-28-2022 C. trachomatis rRNA NEISHA+probe Ql (Unsp spec) Negative Negative [facility] Work Phone: Laboratory - Microbiology an d Antimicrobial susceptibilityon 07-28-2022 N. gonorrhoeae DNA NEISHA+probe Ql (Unsp spec) Negative Negative [facility] Work Phone: Comment on above: Performed at: [address] [id number] Director: Vida Schmidt MD, Phone: [phone] No Panel Informationon 07-28 POC Trichomonas (Rapid) Negative [facility] Work Phone: Laboratory - Microbiology an d Antimicrobial susceptibilityon 06-03-2022 SARS-CoV-2 (COVID-19) RNA NEISHA+probe Ql (Unsp spec) Not detected [facility] Work Phone: No Panel Informationon 06-03 Influenza Types A,B Rapid (Clinic) Not detected [facility] Work Phone: No Panel Informationon 05-14 POC SARS CoV-2 Antigen Negative [facility] Work Phone: C. trachomatis/GC PCR Panel on GeneXperton 02-19-2020 C. trachomatis/GC PCR Panel on GeneXpert Is this specimen being sent to an external lab?->No C. trachomatis PCR on GeneXpert: NEGATIVE-Chlamydia trachomatis DNA: NOT DETECTED. Source: URINE Collected: 02/19/20 11:56 Site: Urine Received : 02/19/20 20:34 C. trachomatis PCR on GeneXpert FINAL 02/20/20 10:41 NEGATIVE-Chlamydia trachomatis DNA: NOT DETECTED. - GC PCR on GeneXpert FINAL 02/20/20 10:44 NEGATIVE-Neisseria gonorrhea DNA: NOT DETECTED. - Method: DNA detection by RT PCR on a GeneXpert analyzer. - NOTE: This Amplified DNA Assay should not be used for the evaluation of suspected sexual abuse or for other medico-legal indications. - Screening urine specimens for Chlamydia trachomatis and Neisseria gonorrhoeae using nucleic acid amplification is an accurate and sensitive method compared to standard techniques of detection of these pathogens. Because the pathogen is diluted in urine, it is somewhat less sensitive than a direct swab specimen evaluated by nucleic acid amplification techniques. Interpret results with caution! Volume of urine submitted for testing was greater than 50mL, which may result in reduced assay sensitivity. Normal [facility] Comment on above: Performed By: #### [facility] #### [facility] [address] [address] Progress Noteon 02-19-2020 Cost Estimator Authentication Interface Message Text Patient ID: Christina Zuniga is a 20 y.o. female. Her chief complaint(s) include: 21+ YEAR WELL CHILD Assessment 1. Routine general medical examination at a health care facility 2. Routine screening for STI (sexually transmitted infection) 3. Irregular menstrual cycle 4. Overweight 5. Mild intermittent asthma without complication Plan Christina was seen today for 21+ year well child. Diagnoses and all orders for this visit: Routine general medical examination at a health care facility - Behavioral/Emotiona l Assessment w Score - PHQ 9 - C.trachomatis/GC PCR Panel Routine screening for STI (sexually transmitted infection) - C.trachomatis/GC PCR Panel Irregular menstrual cycle - AMB Referral To Obstetrics/Gynecolo gy; Future Overweight - AMB Referral To Obstetrics/Gynecolo gy; Future Mild intermittent asthma without complication - albuterol 108 (90 Base) MCG/ACT inhaler; Inhale 2 Puffs into the lungs every 4 hours as needed for Wheezing, Shortness of Breath or Cough Use with spacer. Referral sent to promotional demonstrator due to irregular menses and associated overweight. Patient also due for pap and pelvic exam. Discussed diet and exercise. Also discussed importance of using control if sexually active. Will have recreation instructor initiate control after assessing for the irregular menses. Patient's asthma doing well. Refill for albuterol sent. Discussed diet and exercise. Also, discussed transitioning to an adult physician. Return in about 1 year (around 02/18/2021) for well check. Subjective She is accompanied by her mother. 21+ YEAR WELL CHILD Home: Christina has an adult to turn to for help, is permitted and able to make independent decisions and pays bills. Christina does not eat meals with family and has no home risk identified. Education: Christina is in the work force. Activities & Sports: Christina has a job (works at the [employer]) and performs at least 1 hour of physical activity daily. Christina engages in screen time more than 2 hours daily and does not have drivers license. Drugs: Christina does vape (on occasion). Christina does not use tobacco, does not use drugs and does not use alcohol. Safety: Christina has a violence free home and uses seat belt. Sex: The patient does not currently have a sexual partner. The patient is interested in males. The patient states that their partner and them engage in vaginal sex. The patient has 1 current sexual partners. The patient has had 1 lifetime sexual partners. The patient's sexual orientation is heterosexual. The patient's gender identity is cisgender. Typically, the patient uses condoms as current contraceptive method. The patient has not had an STD. The patient's partner has had an STD: no. STD screening offered and completed. Christina has previously been : No Suicidality: Christina has ways to cope with stress, displays self-confidence, has depression (some) and has anxiety (some). Christina has no problems with sleep, does not have mood swings, has no suicidal ideation, has no homicidal ideation and is not engaged in counseling. PHQ-9 Score: 5 Menstruation (Menarche: age 11) Menstruation: irregular periods and moderate cramping Output Urine and Stool Pattern: Urine and Stool Pattern: Normal stool pattern, no constipation, normal urine pattern, no nocturnal enuresis. Stool Consistency: soft Sleep Sleeping Difficulty: no difficulty sleeping Hours of sleep at a time: 6 (to 8 hours) Teen Anticipatory Guidance The following anticipatory guidance was reviewed during the visit: Nutrition: limit junk food/fast food and soft drinks. Safety: use safety helmet/gear with activities. Social: avoid or limit screen time and parental limits and consequences for unacceptable behavior. Health: age appropriate dental care, age appropriate sleep habits, elevated noise and hearing, avoid situations where drugs and alcohol are present, how to resist peer pressure to smoke, drink, use drugs, ask questions if concerned about feelings for same or opposite sex, contraception/pract ice safe sex/ use condoms, practice abstinence- the safest way to prevent and STDs, learn to manage time and activities and be responsible for attendance/ homework/ course selection. Screenings Previous Vaccine Reactions: No. Life events information was reviewed-no referral needed (social determinant questionnaire completed: no concerns at this time) Tuberculosis Concerns: Negative Tuberculosis Screen Concerns: no exposure to Tb or person with positive ppd Hearing Vision Concerns: Patient wears glasses or contact lenses. The caregiver has no concerns about the patient's hearing. The caregiver has no concerns about the patient's vision. Patient is being seen by blueberry grower or office support assistant. Hyperlipidemia Concerns: Negative Hyperlipidemia Screen Concerns: no parent or grandparent with [place] angina peripheral or cerebrovascular disease <55 years and no parent with cholesterol >240mg/dl Primary Care Review of Systems Objective Vital Signs 02/19/20 1106 BP: 118/66 Pulse: 71 Weight: 86 kg Height: 155 cm Body mass index is 35.8 kg/m . Physical Exam Constitutional: She appears well. She is active. No distress. Overweight HENT: Head: Atraumatic. Ears: Right Ear: Tympanic membrane and external ear normal. Left Ear: Tympanic membrane and external ear normal. Nose: Nose normal. No nasal deformity or nasal discharge. Mouth/Throat: Mucous membranes are moist. Dentition is normal. Oropharynx is clear. Eyes: Conjunctivae are normal. Neck: Normal range of motion. Neck supple. Cardiovascular: Normal rate, regular rhythm, S1 normal and S2 normal. Heart murmur not heard. Pulses: Femoral pulses are 2+ on the right side, and 2+ on the left side Pulmonary/Chest: Breath sounds normal. No respiratory distress. Exhibits no deformity. Abdominal: Soft. Bowel sounds are normal. She exhibits no distension and no mass. There is no hepatosplenomegaly. There is no abdominal tenderness. Skin: Skin is warm and not pale. Findings: No rash. Vitals reviewed: Blood pressure 118/66, pulse 71, height 155 cm, weight 86 kg. Normal [facility] Vital Signs Date Time Vital Sign Value Performing Clinician Shahrzadi pacheco 01-31-2025 09:24-0400 Body height 152.4 cm No Primary Care Physician [facility] 01-31-2025 09:24-0400 Body mass index (BMI) [Ratio] 35.5 kg/m2 No Primary Care Physician [facility] 01-31-2025 09:24-0400 Body temperature 97.2 [degF] No Primary Care Physician [facility] 01-31-2025 09:24-0400 Body weight 82.55 kg No Primary Care Physician [facility] 01-31-2025 09:24-0400 Diastolic blood pressure 74 mm[Hg] No Primary Care Physician [facility] 01-31-2025 09:24-0400 Heart rate 63 /min No Primary Care Physician [facility] 01-31-2025 09:24-0400 Respiratory rate 18 /min No Primary Care Physician [facility] 01-31-2025 09:24-0400 SaO2% (BldA) [Mass fraction] 99 % No Primary Care Physician [facility] 01-31-2025 09:24-0400 Systolic blood pressure 105 mm[Hg] No Primary Care Physician [facility] 12-21-2024 10:20-0400 Body height 152.4 cm No Primary Care Physician [facility] 12-21-2024 10:20-0400 Body mass index (BMI) [Ratio] 35 kg/m2 No Primary Care Physician [facility] 12-21-2024 10:20-0400 Body temperature 96.9 [degF] No Primary Care Physician [facility] 12-21-2024 10:20-0400 Body weight 81.41 kg No Primary Care Physician [facility] 12-21-2024 10:20-0400 Diastolic blood pressure 70 mm[Hg] No Primary Care Physician [facility] 12-21-2024 10:20-0400 Heart rate 68 /min No Primary Care Physician [facility] 12-21-2024 10:20-0400 Respiratory rate 16 /min No Primary Care Physician [facility] 12-21-2024 10:20-0400 SaO2% (BldA) [Mass fraction] 98 % No Primary Care Physician [facility] 12-21-2024 10:20-0400 Systolic blood pressure 112 mm[Hg] No Primary Care Physician [facility] 11-13-2024 11:30-0500 Body mass index (BMI) [Ratio] 35.2 kg/m2 No Primary Care Physician [facility] 11-13-2024 11:30-0500 Body temperature 97.6 [degF] No Primary Care Physician [facility] 11-13-2024 11:30-0500 Body weight 81.7 kg No Primary Care Physician [facility] 11-13-2024 11:30-0500 Diastolic blood pressure 60 mm[Hg] No Primary Care Physician [facility] 11-13-2024 11:30-0500 Heart rate 85 /min No Primary Care Physician [facility] 11-13-2024 11:30-0500 Respiratory rate 12 /min No Primary Care Physician [facility] 11-13-2024 11:30-0500 SaO2% (BldA) [Mass fraction] 99 % No Primary Care Physician [facility] 11-13-2024 11:30-0500 Systolic blood pressure 112 mm[Hg] No Primary Care Physician [facility] 08-31-2024 09:12-0500 Body mass index (BMI) [Ratio] 34.2 kg/m2 No Primary Care Physician [facility] 08-31-2024 09:12-0500 Body weight 79.37 kg No Primary Care Physician [facility] 08-31-2024 09:12-0500 Diastolic blood pressure 75 mm[Hg] No Primary Care Physician [facility] 08-31-2024 09:12-0500 Systolic blood pressure 109 mm[Hg] No Primary Care Physician [facility] 08-28-2024 14:53-0500 Body temperature 98.3 [degF] No Primary Care Physician [facility] 08-28-2024 14:53-0500 Diastolic blood pressure 72 mm[Hg] No Primary Care Physician [facility] 08-28-2024 14:53-0500 Heart rate 74 /min No Primary Care Physician [facility] 08-28-2024 14:53-0500 Respiratory rate 12 /min No Primary Care Physician [facility] 08-28-2024 14:53-0500 SaO2% (BldA) [Mass fraction] 100 % No Primary Care Physician [facility] 08-28-2024 14:53-0500 Systolic blood pressure 112 mm[Hg] No Primary Care Physician [facility] 01-18-2024 11:16-0400 Body height 152.4 cm CUPOLA HOIST OPERATOR-C Karol Steel CUPOLA HOIST OPERATOR Work Phone: [facility] 01-18-2024 11:13-0400 Body mass index (BMI) [Ratio] 34.4 kg/m2 CUPOLA HOIST OPERATOR-Davonte Steel CUPOLA HOIST OPERATOR Work Phone: [facility] 01-18-2024 11:13-0400 Body weight 79.94 kg CUPOLA HOIST OPERATOR-C Karol Steel CUPOLA HOIST OPERATOR Work Phone: [facility] 01-18-2024 11:13-0400 Diastolic blood pressure 64 mm[Hg] CUPOLA HOIST OPERATOR-Davonte Steel CUPOLA HOIST OPERATOR Work Phone: [facility] 01-18-2024 11:13-0400 Systolic blood pressure 110 mm[Hg] CUPOLA HOIST OPERATOR-Davonte Steel CUPOLA HOIST OPERATOR Work Phone: [facility] 12-25-2023 15:40-0400 Body temperature 98.3 [degF] CUPOLA HOIST OPERATOR-C Karol Seffens CUPOLA HOIST OPERATOR Work Phone: [facility] 12-25-2023 15:40-0400 Diastolic blood pressure 60 mm[Hg] CUPOLA HOIST OPERATOR-C Karol Seffens CUPOLA HOIST OPERATOR Work Phone: [facility] 12-25-2023 15:40-0400 Heart rate 55 /min CUPOLA HOIST OPERATOR-C Karol Seffens CUPOLA HOIST OPERATOR Work Phone: [facility] 12-25-2023 15:40-0400 Respiratory rate 16 /min CUPOLA HOIST OPERATOR-C Karol Seffens CUPOLA HOIST OPERATOR Work Phone: [facility] 12-25-2023 15:40-0400 SaO2% (BldA) [Mass fraction] 98 % CUPOLA HOIST OPERATOR-C Karol Seffens CUPOLA HOIST OPERATOR Work Phone: [facility] 12-25-2023 15:40-0400 Systolic blood pressure 104 mm[Hg] CUPOLA HOIST OPERATOR-C Karol Seffens CUPOLA HOIST OPERATOR Work Phone: [facility] 12-25-2023 12:42-0400 Body height 152.4 cm CUPOLA HOIST OPERATOR-C Karol Seffens CUPOLA HOIST OPERATOR Work Phone: [facility] 12-25-2023 12:42-0400 Body mass index (BMI) [Ratio] 34.9 kg/m2 CUPOLA HOIST OPERATOR-C Karol Seffens CUPOLA HOIST OPERATOR Work Phone: [facility] 12-25-2023 12:42-0400 Body weight 81.19 kg CUPOLA HOIST OPERATOR-C Karol Seffens CUPOLA HOIST OPERATOR Work Phone: [facility] 10-26-2023 15:37-0500 Body temperature 97.9 [degF] CUPOLA HOIST OPERATOR-C Karol Seffens CUPOLA HOIST OPERATOR Work Phone: [facility] 10-26-2023 15:37-0500 Diastolic blood pressure 68 mm[Hg] CUPOLA HOIST OPERATOR-C Karol Seffens CUPOLA HOIST OPERATOR Work Phone: [facility] 10-26-2023 15:37-0500 Heart rate 93 /min CUPOLA HOIST OPERATOR-C Karol julions CUPOLA HOIST OPERATOR Work Phone: [facility] 10-26-2023 15:37-0500 Respiratory rate 16 /min CUPOLA HOIST OPERATOR-C Karol Seffens CUPOLA HOIST OPERATOR Work Phone: [facility] 10-26-2023 15:37-0500 SaO2% (BldA) [Mass fraction] 99 % CUPOLA HOIST OPERATOR-C Karol Seffens CUPOLA HOIST OPERATOR Work Phone: [facility] 10-26-2023 15:37-0500 Systolic blood pressure 126 mm[Hg] CUPOLA HOIST OPERATOR-C Karol Seffens CUPOLA HOIST OPERATOR Work Phone: [facility] 08-07-2022 16:19-0500 Body temperature 98.4 [degF] No Primary Care Physician [facility] Work Phone: 08-07-2022 16:19-0500 Diastolic blood pressure 78 mm[Hg] No Primary Care Physician [facility] Work Phone: 08-07-2022 16:19-0500 Heart rate 78 /min No Primary Care Physician [facility] Work Phone: 08-07-2022 16:19-0500 Respiratory rate 18 /min No Primary Care Physician [facility] Work Phone: 08-07-2022 16:19-0500 SaO2% (BldA) [Mass fraction] 99 % No Primary Care Physician [facility] Work Phone: 08-07-2022 16:19-0500 Systolic blood pressure 134 mm[Hg] No Primary Care Physician [facility] Work Phone: 08-07-2022 14:01-0500 Body height 154.94 cm No Primary Care Physician [facility] Work Phone: 08-07-2022 14:01-0500 Body mass index (BMI) [Ratio] 30.9 kg/m2 No Primary Care Physician [facility] Work Phone: 08-07-2022 14:01-0500 Body weight 74.38 kg No Primary Care Physician [facility] Work Phone: 07-28-2022 15:46-0500 Body mass index (BMI) [Ratio] 31.8 kg/m2 No Primary Care Physician [facility] Work Phone: 07-28-2022 15:46-0500 Body weight 74.04 kg No Primary Care Physician [facility] Work Phone: 07-28-2022 15:46-0500 Diastolic blood pressure 64 mm[Hg] No Primary Care Physician [facility] Work Phone: 07-28-2022 15:46-0500 Systolic blood pressure 110 mm[Hg] No Primary Care Physician [facility] Work Phone: 06-03-2022 16:08-0400 Body temperature 98 [degF] No Primary Care Physician [facility] Work Phone: 06-03-2022 16:08-0400 Diastolic blood pressure 68 mm[Hg] No Primary Care Physician [facility] Work Phone: 06-03-2022 16:08-0400 Heart rate 86 /min No Primary Care Physician [facility] Work Phone: 06-03-2022 16:08-0400 Respiratory rate 14 /min No Primary Care Physician [facility] Work Phone: 06-03-2022 16:08-0400 SaO2% (BldA) [Mass fraction] 99 % No Primary Care Physician [facility] Work Phone: 06-03-2022 16:08-0400 Systolic blood pressure 122 mm[Hg] No Primary Care Physician [facility] Work Phone: 05-14-2022 17:33-0400 Body temperature 98.5 [degF] No Primary Care Physician [facility] Work Phone: 05-14-2022 17:33-0400 Diastolic blood pressure 64 mm[Hg] No Primary Care Physician [facility] Work Phone: 05-14-2022 17:33-0400 Heart rate 93 /min No Primary Care Physician [facility] Work Phone: 05-14-2022 17:33-0400 Respiratory rate 14 /min No Primary Care Physician [facility] Work Phone: 05-14-2022 17:33-0400 SaO2% (BldA) [Mass fraction] 98 % No Primary Care Physician [facility] Work Phone: 05-14-2022 17:33-0400 Systolic blood pressure 112 mm[Hg] No Primary Care Physician [facility] Work Phone: Encounters Encounter Date Encounter Type Care Provider Facility Start: 02-26-2025 ambulatory Ladonna Bowers [facility] y:[facility] Start: 02-23-2025 Encounter for other preprocedural examination [facility] Start: 01-31-2025 End: 01-31-[address] Ladonna Bowers MD -[facility] Work Phone: Start: 01-31-2025 End: 01-31-2025 ambulatory No Primary Care Physician [facility] Work Phone: Start: 12-21-2024 End: 12-21-[address] Ping Turner MD -[facility] Work Phone: Start: 12-21-2024 End: 12-21-2024 ambulatory No Primary Care Physician [facility] Work Phone: Start: 12-21-2024 End: 12-21-2024 ambulatory Pnig Turner Facility:[facility] Start: 11-13-2024 End: 11-13-[address] Ping Turner MD -[facility] Work Phone: Start: 11-13-2024 End: 11-13-2024 ambulatory No Primary Care Physician Facility:[facility] Start: 08-31-2024 End: 08-31-2024 Patient encounter procedure Erendira RENAE -[facility] Work Phone: Start: 08-31-2024 End: 08-31-2024 Patient encounter procedure Erendira RENAE -[facility] Work Phone: Start: 08-31-2024 End: 08-31-2024 ambulatory Erendira Green Facility:[facility] Start: 08-31-2024 End: 08-31-2024 ambulatory Erendira Green Facility:[facility] Start: 08-28-2024 End: 08-28-2024 Patient encounter procedure Rodolfo Mayer [place] -[facility] Work Phone: Start: 08-28-2024 End: 08-28-2024 ambulatory No Primary Care Physician Facility:[facility] Start: 08-19-2024 End: 08-19-2024 Emergency department patient visit Jose A [place] Facility:[facility] Start: 08-08-2024 End: 08-08-2024 ambulatory No Primary Care Physician Facility:[facility] Start: 06-08-2024 End: 06-08-2024 ambulatory No Primary Care Physician Facility:[facility] Start: 05-25-2024 End: 05-25-2024 ambulatory No Primary Care Physician Facility:[facility] Start: 04-18-2024 End: 04-18-2024 ambulatory No Primary Care Physician Facility:[facility] Start: 04-18-2024 End: 04-18-2024 ambulatory No Primary Care Physician Facility:[facility] Start: 04-14-2024 End: 04-14-2024 ambulatory No Primary Care Physician Facility:[facility] Start: 04-02-2024 End: 04-02-2024 ambulatory No Primary Care Physician Facility:[facility] Start: 03-31-2024 End: 03-31-2024 ambulatory No Primary Care Physician Facility:[facility] Start: 02-10-2024 End: 02-10-2024 Patient encounter procedure Alfonso Tuttle Work Phone: Podiatry Comment on above: Tendonitis, Achilles , right (Primary Dx); Pes planus of right foot Start: 02-10-2024 End: 02-10-2024 ambulatory ALFONSO TUTTLE Facility:[facility] Start: 02-10-2024 End: 02-10-2024 Subsequent hospital visit by physician [facility] Work Phone: Radiology Comment on above: Pain [[id number]] Start: 01-18-2024 End: 01-18-2024 ambulatory CUPOLA HOIST OPERATOR-C Karol Seffens CUPOLA HOIST OPERATOR Work Phone: [facility] Work Phone: Start: 01-18-2024 End: 01-18-2024 Patient encounter procedure CUPOLA HOIST OPERATOR-C Karol Seffens CUPOLA HOIST OPERATOR Work Phone: [facility] Work Phone: Start: 12-27-2023 End: 12-27-2023 ambulatory CUPOLA HOIST OPERATOR-C Karol Seffens CUPOLA HOIST OPERATOR Work Phone: [facility] Work Phone: Start: 12-27-2023 End: 12-27-2023 Patient encounter procedure CUPOLA HOIST OPERATOR-C Karol Seffens CUPOLA HOIST OPERATOR Work Phone: [facility] Work Phone: Start: 12-25-2023 End: 12-25-2023 Emergency department patient visit CUPOLA HOIST OPERATOR-C Karol Seffens CUPOLA HOIST OPERATOR Work Phone: [facility] Work Phone: Start: 12-25-2023 End: 12-25-2023 ambulatory CUPOLA HOIST OPERATOR-C Karol Seffens CUPOLA HOIST OPERATOR Work Phone: [facility] Work Phone: Start: 12-25-2023 End: 12-25-2023 Patient encounter procedure CUPOLA HOIST OPERATOR-C Karol Seffens CUPOLA HOIST OPERATOR Work Phone: [facility] Work Phone: Start: 12-23-2023 End: 12-23-2023 ambulatory CUPOLA HOIST OPERATOR-C Karol Seffens CUPOLA HOIST OPERATOR Work Phone: [facility] Work Phone: Start: 12-23-2023 End: 12-23-2023 Patient encounter procedure CUPOLA HOIST OPERATOR-Davonte Steel CUPOLA HOIST OPERATOR Work Phone: [facility] Work Phone: Start: 10-26-2023 End: 10-26-2023 Patient encounter procedure CUPOLA HOIST OPERATOR-Davonte Steel CUPOLA HOIST OPERATOR Work Phone: [facility] Work Phone: Start: 08-07-2022 End: 08-07-2022 Emergency department patient visit No Primary Care Physician [facility] Start: 07-28-2022 End: 07-28-2022 Patient encounter procedure No Primary Care Physician [facility], Specimen Start: 07-28-2022 End: 07-28-2022 Patient encounter procedure No Primary Care Physician [facility] Start: 06-03-2022 End: 06-03-2022 Patient encounter procedure No Primary Care Physician [facility] Start: 05-14-2022 End: 05-14-2022 Patient encounter procedure No Primary Care Physician [facility] Procedures Date Procedure Procedure Detail Performing Clinician Start: 12-21-2024 Vitamin D, 25-hydrox y measurement No Primary Care Physician Comment on above: Vitamin D StatusDefi ciency: <20 ng/mL (50nmol/L)Insufficiency: 20-30 ng/mL (50-75 nmol/L)Sufficiency: 30-100 ng/mL (75-250 nmol/L)Toxicity: >100 ng/mL (>250 nmol/L) Start: 08-31-2024 Gram stain microscopy N o Primary Care Physician Start: 08-31-2024 Source specific culture No Primary Care Physician Start: 12-25-2023 Urine culture CUPOLA HOIST OPERATOR-Davonte Steel CUPOLA HOIST OPERATOR Work Phone: Start: 12-25-2023 Transvaginal obstetr ic ultrasonography CUPOLA HOIST OPERATOR-Davonte Steel CUPOLA HOIST OPERATOR Work Phone: Plan of Treatment Date Care Activity Detail Author Start: 12-21-2024 Patient referral [facility] Work Phone: Start: 05-14-2024 Influenza vaccination Influenza Vaccine (Season Ended) [facility] Start: 01-18-2024 Liquid based cervical cytology screening [facility] Start: 12-25-2023 [facility] Start: 12-25-2023 Collection venous blood venipuncture ROUTINE VENIPUNCTURE [facility] Start: 12-25-2023 Gonadotropin chorionic quantitative CHORIONIC GONADOTROPIN TEST [facility] Start: 09-13-2023 Behavioral Health Screening Behavioral Health Screening [facility] Start: 05-14-2023 Covid-19 Vaccine ( season) Covid-19 Vaccine ( season) [facility] Start: 05-14-2020 Urine microalbumin profile DTaP,Tdap,Td Vaccine (7 - Td or Tdap) [facility] Start: 2019 Screening for malignant neoplasm of cervix Pap Testing [facility] Start: 01-07-2016 Hepatitis C screening Hepatitis C Screening [facility] Start: 01-07-2016 HIV screening HIV Screening [facility] Start: 01-07-2012 Peds To Adult Transition Annual Assessment Peds To Adult Transition Annual Assessment [facility] Start: 2010 Peds To Adult Transition Initial Discussion Peds To Adult Transition Initial Discussion [facility] Bacteria identified in Urine by Culture [facility] Path report.final Dx Spec [facility] Patient Education [facility] Work Phone: Patient referral [facility] Work Phone: XR Foot - right AP a nd Lateral and oblique XR FOOT GENERAL 3V AP/LAT/OBL RIGHT Radiology Routine Pain 02/10/2024 9:51 AM EDT [facility] Work Phone: Immunizations Immunization Date Immunization Notes Care Provider Chay lindquist 06-16-2022 influenza, injectabl e, quadrivalent, preservative free No Primary Care Physician [facility] 06-16-2022 tetanus toxoid, redu lindy diphtheria toxoid, and acellular pertussis vaccine, adsorbed No Primary Care Physician [facility] 07-12-2018 influenza, injectabl e, quadrivalent, preservative free No Primary Care Physician [facility] 07-12-2018 influenza virus vacc ine, unspecified formulation Alfonso Tuttle Work Phone: [facility] 04-16-2016 meningococcal polysaccharide (groups A, C, Y and W-135) diphtheria toxoid conjugate vaccine (MCV4P) No Primary Care Physician [facility] 06-27-2015 influenza, injectabl e, quadrivalent, preservative free No Primary Care Physician [facility] 06-13-2013 influenza, injectabl e, quadrivalent, preservative free No Primary Care Physician [facility] 06-16-2012 influenza, seasonal, injectable, preservative free No Primary Care Physician [facility] 06-10-2011 influenza, seasonal, injectable, preservative free No Primary Care Physician [facility] 02-26-2011 human papilloma viru s vaccine, quadrivalent No Primary Care Physician [facility] 02-26-2011 varicella virus vaccine No [facility] Physician [facility] 07-24-2010 influenza, seasonal, injectable, preservative free No Primary Care Physician [facility] 05-14-2010 human papilloma viru s vaccine, quadrivalent No Primary Care Physician [facility] 05-14-2010 meningococcal polysaccharide (groups A, C, Y and W-135) diphtheria toxoid conjugate vaccine (MCV4P) No Primary Care Physician [facility] 05-14-2010 tetanus toxoid, redu lindy diphtheria toxoid, and acellular pertussis vaccine, adsorbed No Primary Care Physician [facility] 06-12-2009 influenza, injectabl e, quadrivalent, preservative free No Primary Care Physician [facility] 04-16-2009 human papilloma viru s vaccine, quadrivalent No Primary Care Physician [facility] 08-28-2008 influenza, injectabl e, quadrivalent, preservative free No Primary Care Physician [facility] 10-01-2004 influenza, injectabl e, quadrivalent, preservative free No Primary Care Physician [facility] 07-27-2003 influenza, injectabl e, quadrivalent, preservative free No Primary Care Physician [facility] 08-28-2002 diphtheria, tetanus toxoids and acellular pertussis vaccine No Primary Care Physician [facility] 08-28-2002 influenza, injectabl e, quadrivalent, preservative free No Primary Care Physician [facility] 08-28-2002 measles, mumps and rubella virus vaccine No Primary Care Physician [facility] 08-28-2002 poliovirus vaccine, inactivated No Primary Care Physician [facility] 01-26-2001 hepatitis A vaccine, pediatric/adolescent dosage, 2 dose schedule No Primary Care Physician [facility] 07-13-2000 hepatitis A vaccine, pediatric/adolescent dosage, 2 dose schedule No Primary [facility] Physician [facility] 07-18-1999 haemophilus influenz ae type b vaccine, PRP-T conjugate No Primary Care Physician [facility] 07-18-1999 poliovirus vaccine, inactivated No Primary Care Physician [facility] 07-14-1999 varicella virus vaccine No [facility] Physician [facility] 02-03-1999 diphtheria, tetanus toxoids and acellular pertussis vaccine No Primary Care Physician [facility] 02-03-1999 measles, mumps and rubella virus vaccine No Primary Care Physician [facility] 1998 diphtheria, tetanus toxoids and acellular pertussis vaccine No Primary [facility] Physician [facility] 1998 haemophilus influenz ae type b vaccine, PRP-T conjugate No Primary Care Physician [facility] 1998 hepatitis B vaccine, pediatric or pediatric/adolescent dosage No Primary Care Physician [facility] 1998 diphtheria, tetanus toxoids and acellular pertussis vaccine No Primary Care Physician [facility] 1998 haemophilus influenz ae type b vaccine, PRP-T conjugate No Primary Care Physician [facility] 1998 poliovirus vaccine, inactivated No Primary Care Physician [facility] 1998 diphtheria, tetanus toxoids and acellular pertussis vaccine No Primary Care Physician [facility] 1998 haemophilus influenz ae type b vaccine, PRP-T conjugate No Primary Care Physician [facility] 1998 hepatitis B vaccine, pediatric or pediatric/adolescent dosage No Primary Care Physician [facility] 1998 poliovirus vaccine, inactivated No Primary Care Physician [facility] 1998 hepatitis B vaccine, pediatric or pediatric/adolescent dosage No Primary Care Physician [facility] Payers Date Payer Category Payer Self-pay [id number] 2020 Medicaid [employer] [id number] 2020-Present [phone] [address] [place] [id number] Medicaid [id number] 2020 Medicaid [id number] Unknown [employer] [id number] Unknown [facility] [id number] Unknown [place] [id number] Unknown [id number] Unknown [id number] [id number] Unknown [id number] [id number] Unknown [id number] Unknown [id number] Unknown [id number] Unknown [id number] [id number] Unknown [id number] [id number] Unknown [id number] [id number] Unknown [id number] [id number] Unknown [id number] [id number] Unknown [id number] [id number] Unknown [id number] [id number] Unknown [id number] [id number] Unknown [id number] [id number] Unknown [id number] [id number] Unknown [id number] Social History Date Type Detail Facility Start: 08-07-2022 End: 12-25-2023 Tobacco smoking status NHIS Unknown if ever smoked [facility] Start: 2000 Sex Assigned At Female [facility] Start: 02-10-2024 End: 11-13-2024 Tobacco smoking status NHIS Never smoked tobacco [facility] Start: 02-10-2024 Tobacco use and exposure Smokeless tobacco non-user [facility] Start: 02-10-2024 Alcohol intake Current drinke r of alcohol (finding) [facility] Start: 02-10-2024 History of Social function [facility] Start: 02-10-2024 Tobacco use panel [facility] National Score (1-100), lower number is lower risk 71 [facility] Start: 02-10-2024 Alcohol Comment [facility] Start: 2000 Sex Assigned At Not on file [facility] Start: 12-22-2024 Sex Female (finding) [facility] NEGATED: Highlighted row [facility] Work Phone: Clinical Notes 02-10-2024 to 11-13-2024 Note Date & Type Note Facility 11-13-2024 Evaluation note Diagnosis Onset Date Resolution Asthma chronic November 13 11:19am Immunization declined noneactive Nov 11:19am Establishing care with new doctor, encounter for noneactive November 13, 2024 11:19am Blood per rectum noneactive November 11:19am Family history of early CAD noneactive November 13, 2024 11:19am Blood per rectum noneactive December 212024 10:14am [facility] Work Phone: [phone] Evaluation note* Diagnosis Onset Date Resolution Status Admit Date Viral URI with cough resolved Dece mber 2023 2:45pm Vaginal discharge resolved Decembe r 2023 9:10am Asthma chronic November 13 11:19am Immunization declined noneactive Nov 11:19am Establishing care with new doctor, encounter for noneactive November 13, 2024 11:19am Blood per rectum noneactive November 11:19am Family history of early CAD noneacti ve November 13, 2024 11:19am Blood per rectum noneactive December 212024 10:14am [facility] Work Phone: 1(164) 875-732605-30-2024 NoteHNO ID: [id number] Author: GILLIAN HENRY LPN Service: ? Author Type: LICENSED NURSE Type: Progress Notes Filed: 02/10/2024 12:09 Note Text: Per Dr. Tuttle Christina was provided with [employer]ive aircast, size XS, and instructed/educated in its application, wear, and care. All questions were answered, and patient was able to demonstrate competence with the necessary skills to utilize the above equipment. [facility] History of Present illness Narrative* Gillian Henry LPN - 02/10/2024 11:[address] Tuttle Christina was provided with [employer]ive aircast, size XS, and instructed/educated in itsapplication, wear, and care. All questions were answered, and patient was able to demonstrate competence with the necessary skills to utilize the above equipment. Billed to MIR Henry LPN * Alfonso Tuttle - 02/10/2024 10:57 AM EDT Initial Podiatric Office Visit: Chief Complaint: This 24 year old female who presents with chief complaint:right ankle pain HPI Patient presents to clinic with complaint of posterior ankle pain, right lower extremity Has sorness to the back of right heel that has been present for about one year Pain is worse the more active she is. She denies injury Saw Dr. Woods who treated her for plantar fasciitis and achilles tendonitis Was treated with pneumatic boot off/on for about 2-3 weeks Was also doing physical therapy for about one month Also treated with night splint. Patient has over the counter inserts but states she is mostly barefoot or wearing crocs Patient has done stretching. Nothing seems to be helping PAIN EVALUATION 02/10/2024 1047 Pain Level: 3 Pain Location: Ankle-Right Description: Sore Duration Units: Years Frequency: Intermittent Intervention/Comfort measure: Relaxation;Reposition No results found for: HBA1C PCP: No primary care provider on file. No past medical history on file. Current Outpatient Medications Medication Sig albuterol HFA (PROVENTIL HFA, VENTOLIN HFA) 90 mcg/actuation inhaler Inhale 2 Puffs as instructed every 6 hours as needed for wheezing/shortness of breath. No current facility-administered medications for this visit. ALLERGIES No Known Allergies No past surgical history on file. No family history on file. Social History Tobacco Use Smoking status: Never Smokeless tobacco: Never Vaping Use Vaping Use: current everyday user Substances: Nicotine Substance Use Topics Alcohol use: Yes Comment: occasionally Drug use: Never REVIEW OF SYSTEMS GENERAL: Negative for Malaise, significant weight loss, fever RESPIRATORY: Negative for cough, wheezing and shortness of breath CARDIOVASCULAR: Negative for chest pain, leg swelling and palpitations GI: Negative for abdominal discomfort, blood in stools or black stools and change in bowel habits : Negative for dysuria, frequency and incontinence MUSCULOSKELETAL: Negative for joint pain or swelling, back pain, and muscle pain. SKIN: Negative for lesions, rash, and itching. HEMATOLOGY/LYMPHOLOGY Negative for prolonged bleeding, bruising easily, and swollen nodes. ENDOCRINE: Negative for cold or heat intolerance, polyuria, polydipsia and goiter. NEURO: negative Physical Exam: Constitutional: Pt is a well developed 24 year old female who is alert, oriented and cooperative Eyes: Following during examination. No redness or drainage. Respiratory: RR normal and nonlabored. Even breathing. No evidence of distress or shortness of breath. Psychology: Patient is engaged during conversation. Normal affect and mood. Does not appear depressed or anxious during encounter. Vascular: Dorsalis pedis and posterior tibial pulses palpable as b/l Capillary Fill time < 5 seconds to digits 1-5 b/l Skin temperature warm to warm proximal to distal b/l Hair growth present to digits Neurological: intact light touch/epicritic sensation b/l intact protective sensation no significant neurological deficits Dermatological: Nails 1-5 b/l appear normal. Webspaces clean and dry 1-4 b/l. Skin appears well hydrated and supple. good color, texture, turgor. No open lesions present. No callosities present. Musculoskeletal/Orthopaedic: Patient has pain to palpation of right achilles tendon. Telles test produces plantarflexion. No bulbous thickening of right achilles. Foot type is pronated structurally AJ ROM is full with knee extended and flexed 1st MPJ is full when loaded and no pain or crepitus are noted with ROM. MTJ, STJ are full and free of pain and crepitus. +5/5 muscle strength dorsiflexion, plantarflexion, inversion, eversion b/l Radiographs: 3 views right foot ordered February 10, 2024: I have personally reviewed and interpreted these XR myself: right foot. No acute fracture ASSESSMENT: (M76.61) Tendonitis, Achilles, right (primary encounter diagnosis) (M21.41) Pes planus of right foot PLAN: 1. History and physical examination performed. 2. XR reviewed with patient and interpreted today 3. Suspect pain in right foot/ankle is related to flatfoot combined with poor supportive shoes. Would recommend lace up tennis shoe, ie hoka, camacho or asics combined with previously dispensed powerstep inserts 4. Discussed prior work-up including conservative care and boot. Patient interested in receiving boot incase pain flares up. Discussed risk of dvt while in boot. 5. Offered mri for further evaluation of achilles. Patient declined mri for now. If pain fails to improve, consider mri. I do suspect if she focuses on wearing more supportive shoes, pain should improve Alfonso Tuttle DPM Podiatry [address] [facility] [address] Dept: [phone] Dept * Araceli Rowe RN - 02/10/2024 10:44 AM EDT AMB ROOMING INTAKE FLOWSHEET DATA Risk Screening Do you have concerns about personal safety or safety in the home?: No Pain Pain Level: 3 Pain Location: Ankle-Right Description: Sore Duration Units: Years Frequency: Intermittent Intervention/Comfort measure: Relaxation, Reposition Patient presents with: Right Ankle - New, Pain Right Foot - New, Pain Patient presents for intermittent right foot and ankle pain that has been intermittent over a few years. Pain is worse when on her feet too long. States that soaking her ankle helps some. Was told that she had achilles tendonitis and plantar fasciitis from a physician outside of the clinic. Used tohave pneumatic boot but can no longer find it and has a night splint for when she needs it. XR prior to appointment. [facility] NoteHNO ID: [id number] Author: ALFONSO TUTTLE, ? Service: ? Author Type: Physician Type: Progress Notes Filed: 02/10/2024 12:09 Note Text: Initial Podiatric Office Visit: Chief Complaint: This 24 year old female who presents with chief complaint:right ankle pain HPI Patient presents to clinic with complaint of posterior ankle pain, right lower extremity Has sorness to the back of right heel that has been present for about one year Pain is worse the more active she is. She denies injury Saw Dr. Woods who treated her for plantar fasciitis and achilles tendonitis Was treated with pneumatic boot off/on for about 2-3 weeks Was also doing physical therapy for about one month Also treated with night splint. Patient has over the counter inserts but states she is mostly barefoot or wearing crocs Patient has done stretching. Nothing seems to be helping PAIN EVALUATION 02/10/2024 1047 Pain Level: 3 Pain Location: Ankle-Right Description: Sore Duration Units: Years Frequency: Intermittent Intervention/Comfort measure: Relaxation;Reposition No results found for: HBA1C PCP: No primary care provider on file. No past medical history on file. Current Outpatient Medications Medication Sig albuterol HFA (PROVENTIL HFA, VENTOLIN HFA) 90 mcg/actuation inhaler Inhale 2 Puffs as instructed every 6 hours as needed for wheezing/shortness of breath. No current facility-administered medications for this visit. ALLERGIES No Known Allergies No past surgical history on file. No family history on file. Social History Tobacco Use Smoking status: Never Smokeless tobacco: Never Vaping Use Vaping Use: current everyday user Substances: Nicotine Substance Use Topics Alcohol use: Yes Comment: occasionally Drug use: Never REVIEW OF SYSTEMS GENERAL: Negative for Malaise, significant weight loss, fever RESPIRATORY: Negative for cough, wheezing and shortness of breath CARDIOVASCULAR: Negative for chest pain, leg swelling and palpitations GI: Negative for abdominal discomfort, blood in stools or black stools and change in bowel habits : Negative for dysuria, frequency and incontinence MUSCULOSKELETAL: Negative for joint pain or swelling, back pain, and muscle pain. SKIN: Negative for lesions, rash, and itching. HEMATOLOGY/LYMPHOLOGY Negative for prolonged bleeding, bruising easily, and swollen nodes. ENDOCRINE: Negative for cold or heat intolerance, polyuria, polydipsia and goiter. NEURO: negative Physical Exam: Constitutional: Pt is a well developed 24 year old female who is alert, oriented and cooperative Eyes: Following during examination. No redness or drainage. Respiratory: RR normal and nonlabored. Even breathing. No evidence of distress or shortness of breath. Psychology: Patient is engaged during conversation. Normal affect and mood. Does not appear depressed or anxious during encounter. Vascular: Dorsalis pedis and posterior tibial pulses palpable as b/l Capillary Fill time < 5 seconds to digits 1-5 b/l Skin temperature warm to warm proximal to distal b/l Hair growth present to digits Neurological: intact light touch/epicritic sensation b/l intact protective sensation no significant neurological deficits Dermatological: Nails 1-5 b/l appear normal. Webspaces clean and dry 1-4 b/l. Skin appears well hydrated and supple. good color, texture, turgor. No open lesions present. No callosities present. Musculoskeletal/Orthopaedic: Patient has pain to palpation of right achilles tendon. Telles test produces plantarflexion. No bulbous thickening of right achilles. Foot type is pronated structurally AJ ROM is full with knee extended and flexed 1st MPJ is full when loaded and no pain or crepitus are noted with ROM. MTJ, STJ are full and free of pain and crepitus. +5/5 muscle strength dorsiflexion, plantarflexion, inversion, eversion b/l Radiographs: 3 views right foot ordered February 10, 2024: I have personally reviewed and interpreted these XR myself: right foot. No acute fracture ASSESSMENT: (M76.61) Tendonitis, Achilles, right (primary encounter diagnosis) (M21.41) Pes planus of right foot PLAN: 1. History and physical examination performed. 2. XR reviewed with patient and interpreted today 3. Suspect pain in right foot/ankle is related to flatfoot combined with poor supportive shoes. Would recommend lace up tennis shoe, ie hoka, camacho or asics combined with previously dispensed powerstep inserts 4. Discussed prior work-up including conservative care and boot. Patient interested in receiving boot incase pain flares up. Discussed risk of dvt while in boot. 5. Offered mri for further evaluation of achilles. Patient declined mri for now. If pain fails to improve, consider mri. I do suspect if she focuses on wearing more supportive shoes, pain should improve Alfonso Tuttle DPM Podiatry [address] (more content not included)...[facility]05-30-2024 Note HNO ID: [id number] Author: ARACELI ROWE RN Service: ? Author Type: Registered Nurse Type: Progress Notes Filed: 02/10/2024 12:09 Note Text: AMB ROOMING INTAKE FLOWSHEET DATA Risk Screening Do you have concerns about personal safety or safety in the home?: No Pain Pain Level: 3 Pain Location: Ankle-Right Description: Sore Duration Units: Years Frequency: Intermittent Intervention/Comfort measure: Relaxation, Reposition Patient presents with: Right Ankle - New, Pain Right Foot - New, Pain Patient presents for intermittent right foot and ankle pain that has been intermittent over a few years. Pain is worse when on her feet too long. States that soaking her ankle helps some. Was told that she had achilles tendonitis and plantar fasciitis from a physician outside of the clinic. Used to have pneumatic boot but can no longer find it and has a night splint for when she needs it. XR prior to appointment.[facility]05-30-2024 History of Present illness Narrative* Ling Mercedes, RT(R) - 02/10/2024 9:40 AM EDT Radiology Service Progress Note PATIENT NAME: Christina Zuniga DATE OF SERVICE: February 10, 2024 TIME: 11:33 AM PATIENT IDENTITY VERIFICATION COMPLETED USING TWO (2) IDENTIFIERS: Name and Date of confirmedby patient verbally. FALL SCREENING: Has the patient had 2 falls in the last year or 1 fall with injury or currently using an Ambulatory Assistive Device (Walker, Cane, Wheelchair, Crutches, etc.)? No PATIENT GENDER DATA: Female. status: : No status: NO. PATIENT RELEVANT IMPLANT DATA REVIEWED: Not Applicable PATIENT PRESENTS WITH AN IMPLANTABLE OR ATTACHED VICE PRESIDENT CLIENT SERVICES: No RADIOLOGY DEPARTMENT: General X-ray: Exam(s) Completed: Lower Extremity X- Ray(s): Foot, Right and Wt. Bearing PERIPHERAL IV DATA: Not applicable SIGNED BY: SHELLI Estrada) February 10, 2024 11:33 AM [facility] NoteHNO ID: [id number] Author: LING MERCEDES RT (R) Service: ? Author Type: Technologist Type: Progress Notes Filed: 02/10/2024 11:34 Note Text: Radiology Service Progress Note PATIENT NAME: Christina Zuniga DATE OF SERVICE: February 10, 2024 TIME: 11:33 AM PATIENT IDENTITY VERIFICATION COMPLETED USING TWO (2) IDENTIFIERS: Name and Date of confirmed by patient verbally. FALL SCREENING: Has the patient had 2 falls in the last year or 1 fall with injury or currently using an Ambulatory Assistive Device (Walker, Cane, Wheelchair, Crutches, etc.)? No PATIENT GENDER DATA: Female. status: : No status: NO. PATIENT RELEVANT IMPLANT DATA REVIEWED: Not Applicable PATIENT PRESENTS WITH AN IMPLANTABLE OR ATTACHED VICE PRESIDENT CLIENT SERVICES: No RADIOLOGY DEPARTMENT: General X-ray: Exam(s) Completed: Lower Extremity X-Ray(s): Foot, Right and Wt. Bearing PERIPHERAL IV DATA: Not applicable SIGNED BY: SHELLI Estrada) February 10, 2024 11:33 [facility] Diagnosis Onset Date Resolution Status Possible exposure to STD non eactive Encounter for routine gynecological examination noneactive [facility] Work Phone: Evaluation noteNo assessment information available [facility] Work Phone: Evaluation note* Diagnosis Onset Date Resolution Status SAB (spontaneous ) a cute Possible exposure to STD non eactive Pap smear for cervical cancer screening noneactive [facility] Work Phone: Evaluation note* Diagnosis Tendonitis, Achilles, right- Primary Achilles bursitis or tendinitis Pes planus of right foot [facility] Diagnosis Pain Generalized pain documented in this encounter [facility] Discharge instructions Additional Instructions Please follow-up with your repeat hCG quantitative Wednesday. These results need to go to [facility] Work Phone: Reason for visit Narrative* Diagnostic Procedure Only (Routine) - Closed Specialty Diagnoses / Procedures Referred By Jose t Referred To Contact XR IMAGING Diagnoses Pain Procedures XR FOOT GENERAL 3V AP/LAT/OBL RIGHT RADEX FOOT COMPLETE MINIMUM 3 VIEWS Alfonso Tuttle [address] [place] [address] [place] [id number] Referral ID Status Reason Start Date Expiration Date V isits Requested Visits Authorized [id number] Closed Auto-Generate d Referral 01/20/2024 02/18/2025 1 1 [facility] Summary Purpose Family History No Family History Records Found Relationship Condition Age at Onset Recorded Date/T yahaira grandmother Malignant neoplasm of breast Unknown Relationship Condition Age at Onset Recorded Date/T yahaira grandmother Malignant neoplasm of breast Unknown brother Anxiety Unknown Depression Unknown grandmother Asthma Unknown Hypertension Unknown High blood cholesterol Unknown father Asthma Unknown Arthritis Unknown Diabetes mellitus Unknown mother Arthritis Unknown brother Myocardial infarction 19 Cardiac disease Unknown Kidney disorder Unknown Disorder of lung Unknown grandfather Parkinson's disease Unknown Advance Directives No Advanced Directives Records Found Advance Directive Response Recorded Date/ Time Living Will No August 07, 022 3:31pm Power of Horn Player No August 07, 2022 3:31pm Advance Directive Response Recorded Date/ Time Living Will No December 25, 2023 1:25pm Power of Horn Player No December 24 1:25pm Chief Complaint and Reason for Visit Chief Complaint COVID SYMPTOMS 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 vaginal discharge Decem 2023 9:10am est care November 13, 2024 11:1 9am blood when going to bathroom December 21, 2024 10:14am Reason for Visit Admit Date Viral URI with cough August 28, 2024 2:45pm Vaginal discharge August 31, 2024 9:10am Asthma November 13, 2024 11:1 9am Immunization declined November 13, 2024 11 :19am Establishing care with dariel richardson for November 13, 2024 11:19am Blood per rectum November 13, 2024 11:1 9am Family history of early CAD November 13 025 11:19am Blood per rectum December 21, 2024 10: 14am Chief Complaint Admit Date est care November 13, 2024 11:1 9am blood when going to bathroom December 21, 2024 10:14am BLOOD IN STOOL January 31, 2025 9:13a m Reason for Visit Admit Date Asthma November 13, 2024 11:1 9am Immunization declined November 13, 2024 11 :19am Establishing care with dariel richardson for November 13, 2024 11:19am Blood per rectum November 13, 2024 11:1 9am Family history of early CAD November 13, 2 025 11:19am Blood per rectum December 21, 2024 10: 14am Additional Source Comments INFORMATION SOURCE (unrecogn ized section and content) DATE CREATED AUTHOR 02/20/2020 [facility] DATE CREATED AUTHOR AUTHOR'S ORGANIZ ATION 02/16/2024 [facility] DATE CREATED AUTHOR AUTHOR'S ORGANIZ ATION 02/24/2025 [facility] Goals (unrecognized section and content) Goals may be documented in a n alternate sectionGoals may be documented in an alternate sectionGoals may be documented in an alternate sectionGoals may be documented in an alternate sectionGoals may be documented in an alternate sectionGoals may be documented in an alternate sectionGoals may be documented in an alternate sectionGoals may be documented in an alternate section Care Teams (unrecognized sec tion and content) Team Status: Active Member Role Status Dates Dr. Danna Diane MD Family Provider Active No Primary Care Physician Primary Care Provider Active Team Status: Inactive Member Role Status Dates Karol Steel CUPOLA HOIST OPERATOR, CUPOLA HOIST OPERATOR-C Primary Care Provider, Referr ing Provider Active Mike LAWS, PA Attending Provider Active Team Status: Active Member Role Status Dates No Primary Care Physician Primary Care Provider Active Dr. Germania Mar MD Attending Provider, Referr ing Provider Active Team Status: Inactive Member Role Status Dates No Primary Care Physician Primary Care Provider Active Kamran Fiore MD Emergency Provider Active Team Status: Active Member Role Status Dates No Primary Care Physician Primary Care Provider Active Kamran Fiore MD Attending Provider, Referring Provid er Active Dr. Sara Olmedo DO Other Provider Active Team Status: Inactive Member Role Status Dates No Primary Care Physician Primary Care Provider Active Dr. Germania Mar MD Attending Provider, Referr ing Provider Active Team Status: Inactive Member Role Status Dates No Primary Care Physician Primary Care Provider Active Kamran Fiore MD Attending Provider, Referring Provid er Active Dr. Sara Olmedo DO Other Provider Active Team Status: Inactive Member Role Status Dates No Primary Care Physician Primary Care Provider Active Kamran Fiore MD Attending Provider, Emergency Provid er Active Team Status: Inactive Member Role Status Dates No Primary Care Physician Primary Care Provider, Refer ring Provider Active Stephany Colby CUPOLA HOIST OPERATOR, CUPOLA HOIST OPERATOR-C Attending Provider Active Team Status: Inactive Member Role Status Dates No Primary Care Physician Primary Care Provider Active Stephany Colby CUPOLA HOIST OPERATOR, CUPOLA HOIST OPERATOR-C Attending Provider, Referring Provider Active Team Status: Active Member Role Status Dates Dr. iPng Turner MD Primary Care Provider Active Team Status: Inactive Member Role Status Dates No Primary Care Physician Primary Care Provider Active Start: August 28, 2024 End: August 28, 2024 No Primary Care Physician Referring Provider Active Start: August 28, 2024 End: August 28, 2024 Rodolfo Moreno PA, PA Attending Provider Active Sta rt: August 28, 2024 End: August 28, 2024 Team Status: Inactive Member Role Status Dates No Primary Care Physician Primary Care Provider Active Start: August 31, 2024 End: August 31, 2024 No Primary Care Physician Referring Provider Active Start: August 31, 2024 End: August 31, 2024 Erendira Green NP-Davonte Attending Provider Active Start: August 31, 2024 End: August 31, 2024 Team Status: Inactive Member Role Status Dates No Primary Care Physician Primary Care Provider Active Start: August 31, 2024 End: August 31, 2024 Erendira Green NP-C Attending Provider Active Start: August 31, 2024 End: August 31, 2024 JACQUE BooneC Referring Provider Active Start: August 31, 2024 End: August 31, 2024 Team Status: Inactive Member Role Status Dates No Primary Care Physician Primary Care Provider Active Start: November 13, 2024 End: November 13, 2024 No Primary Care Physician Referring Provider Active Start: November 13, 2024 End: November 13, 2024 Dr. Ping Turner MD Attending Provider Active Start: November 13, 2024 End: November 13, 2024 Team Status: Inactive Member Role Status Dates No Primary Care Physician Referring Provider Active Start: December 21, 2024 End: December 21, 2024 Dr. Ping Turner MD Primary Care Provider Active Start: December 21, 2024 End: December 21, 2024 Dr. Ping Turner MD Attending Provider Active Start: December 21, 2024 End: December 21, 2024 Team Status: Inactive Member Role Status Dates Dr. Ping Turner MD Primary Care Provider Active Start: December 21, 2024 End: December 21, 2024 Dr. Ping Turner MD Attending Provider Active Start: December 21, 2024 End: December 21, 2024 Dr. Ping Turner MD Referring Provider Active Start: December 21, 2024 End: December 21, 2024 Team Status: Inactive Member Role Status Dates Dr. Ping Turner MD Primary Care Provider Active Start: January 31, 2025 End: January 31, 2025 Dr. Ping Turner MD Referring Provider Active Start: January 31, 2025 End: January 31, 2025 Dr. Ladonna Bowers MD Attending Provider Active Start: January 31, 2025 End: January 31, 2025 Source Comments (unrecognize d section and content) In the event this informatio n is protected by the Federal Confidentiality of Alcohol and Drug Abuse Patient Records regulations: The Federal rules restrict any use of the information to criminally investigate or prosecute any alcohol or drug abuse patient.[facility] the event this information is protected by the Federal Confidentiality of Alcohol and Drug Abuse Patient Records regulations: The Federal rules restrict any use of the information to criminally investigate or prosecute any alcohol or drug abuse patient.[facility] Reason for Visit (unrecogniz ed section and content) Reason Comments New Pain FOR RECORDS PERTAINING TO PATIENTS WHO ARE OR HAVE BEEN ENROLLED IN A CHEMICAL DEPENDENCY/SUBSTANCEABUSE PROGRAM, SOME INFORMATION MAY BE OMITTED. This clinical summary was aggregated from multiple sources. Caution should be exercised in using it in the provision of clinical care. This summary normalizes information from multiple sources, and as a consequence, information in this document may materially change the coding, format and clinical context of patient data. In addition, data may be omitted in some cases. CLINICAL DECISIONS SHOULD BE BASED ON THE PRIMARY CLINICAL RECORDS. [employer] provides no warranty or guarantee of the accuracy or completeness of information in this document.
--- NOTE | 2025-02-26 07:35 | H&P.OPEN ---
HPI - General General Date of Service: 02/26/25 HPI Narrative CHRISTINA FREIRE, is a 25 F who presents for colonoscopy due to history of bright red blood per rectum. Patient has been using the diltiazem as needed. States the pain has improved from previous. Patient does take baths frequently. Patient denies any other changes since office visit. Office visit 01/31/2025 HPI HPI: 25-year-old female presents due to bright red blood per rectum. Patient states that she has had hemorrhoids been dealing with it for last couple of years on and off. Patient never had previous colonoscopy, denies any family history of colon cancer, denies any abdominal pain or nausea or vomiting. Patient states she had been trying the Proctosol cream denies any changes over the last couple weeks. Patient's bowel movements about every other day. Patient will have constipation and then have diarrhea for couple days. Patient does admit to some increased pain with bowel movements especially if solid. 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 Asthma Home Medications ?Medication ?Instructions ?Recorded ?Last Taken ?Type albuterol sulfate 90 mcg/actuation 2 puff inhalation Q6H PRN 11/13/24 Unknown Rx aerosol inhaler shortness of breath or wheezing #8.5 grams hydrocortisone 2.5 % topical cream 1 applic [place] BID-QID PRN 12/21/24 Unknown Rx with perineal applicator hemorrhoids #30 grams (Proctosol HC) Hydrocortisone 25mg/diltiazem 1 supp OTHER 2XD #30 supp 02/01/25 Unknown Rx 10mg/lidocaine 50mg Allergy/AdvReac Type Severity Reaction Status Date / Time No Known Allergies Allergy Verified 02/26/25 07:51 Family History Grandmother Breast cancer Brother Anxiety Depression Grandmother Asthma Hypertension High cholesterol Father Asthma Arthritis Diabetes Hypertension Mother Arthritis Brother Myocardial infarction, Onset Age: 19 Heart disease Kidney disease Lung disease Grandfather Parkinson disease Surgical History No pertinent past surgical history Social History (Updated 01/31/25 @ 09:58 by Jeana Dooley LPN) adopted: No household members: significant other housing: house number of children: 0 current occupational status: employed current occupation: [employer] sexually active: Yes Smoking Status: Current every day smoker tobacco type: e-cigarettes second hand exposure: Yes alcohol intake: former details: never a heavy drinker substance use type: does not use seatbelt use: always do you feel safe at home: Yes Past Medical/Surgical History Planned Operation Planned Operative Procedure(s): COLONOSCOPY Previous Hospitalizations/Surgeries HX Hospitalizations: No Any Problems With Anesthesia: No You/Your Family Experience Fever (Hyperthermia) With Anes: No Cholinesterase deficiency: No Cardiovascular Hx Chest Pain within Last 2 months: No Hx Heart Attack: No Hx Hypertension: No Hx Cardiac Surgery/Stents/Etc.: No Respiratory Hx Chronic Obstructive Pulmonary Disease (COPD): No Hx Sleep Apnea: No Hx Respiratory Tract Infection/Cold (presently): No Do You Snore Loudly (louder than talking or can be heard): No Do You Often Feel Tired/ Fatigued/ Sleepy Dring Daytime?: No Has Anyone Observed You Stop Breathing During Sleep?: No Result (for STOP score): Negative Hx Smoking: No Smoking Status: Current every day smoker Neurological Hx Seizures: No Hx Multiple Sclerosis: No Hx Parkinson's Disease: No Does patient have nerve stimulator: No Blood Disorder Hx Anemia: No Reproduction : No Musculoskeletal Hx Arthritis: No Hx Rheumatoid Arthritis: No Endocrine Hx Diabetes: Yes Thyroid Disease: No Psycho/Social Hx Anxiety: Yes Hx Depression: Yes Hx Dementia: No Allergies No Known Allergies Allergy (Verified 02/26/25 07:51) Discharge Is Pt Admitted From a [facility], or a Intermediate: No After D/C, Where Do you Plan to Go: Return Home Physical Exam Const alert, oriented x3 and no apparent distress HEENT normocephalic and head/scalp atraumatic Resp normal respiratory effort Cardio regular rate GI soft to palpation and non-tender; Negative for non-distended Palpation: Negative for guarding Extremity no clubbing, cyanosis or edema Skin no rashes or lesions noted Neuro CN's II-XII intact bilaterally Psych mental status grossly normal Assessment & Plan Assessment/Plan (1) Blood in stool: (2) Anal fissure: Surgery Risks - Colonoscopy I discussed with the patient the risks of the procedure: Yes Risks Include but are not Limited To: Risks include but are not limited to: Bleeding, perforation requiring further surgery, inability to complete colonoscopy requiring barium enema.
[2025-02-26 07:50] LABS: Internal QC Validated? YES +Cl - CLEAR BKGD; Pregnancy, Urine Negative Negative
[2025-02-26] MEDS: Lactated Ringers 1,000 ML 15 ML IV (08:00)
--- NOTE | 2025-02-26 08:14 | PRE.ANES_ITS ---
ASA Classification* ASA Classification ASA Classification: 2 Assessment & Plan Anesthesia* Anesthesia Assessment Anesthesia Assessment: Discussed sedation and/or anesthesia options, risks, benefits, and alternatives with patient/parents/legal guardian/POA. Questions invited. The patient/parents/legal guardian/POA seems to understand and agrees to proceed with anesthesia plan. Reviewed the physical assessment, medical history, allergy history and patient home medications list prior to surgery/procedure/anesthetic and documented any changes. Performed airway and anesthesia risk assessments. Anesthesia Type Anesthesia Type: MAC History Source History Obtained from:: Patient and Chart Anesthesia Focused Assessment* Temperature: 97.2 F Pulse Rate: 74 Blood Pressure: 112/62 Respiratory Rate: 18 Pulse Ox: 99 Oxygen Delivery Method: Room Air Airway Assessment Mouth opens: >3 cm Mallampati Score: III Teeth Condition: Missing (Patient is missing 1 tooth left lower.) Neck Range of motion (ROM): Full ROM Labs Anesthesia Preop lab: CBC WBC 11.1 K/mm3 (4.4-11.0) H 08/19/24 15:30 4 RBC 4.79 M/mm3 (4.2-5.4) 08/19/24 15:30 08/19/24 Hgb 13.8 g/dL (12.0-15.0) 08/19/24 15:30 08/19/24 Hct 40.9 % (37-47) 08/19/24 15:30 08/19/24 Plt Count 339 K/mm3 (150-450) 08/19/24 15:30 08/19/24 CHEMISTRY Potassium 3.8 mmol/L (3.3-5.1) 12/21/24 11:11 12/21/24 Sodium 137 mmol/L (133-145) 12/21/24 11:11 12/21/24 BUN 9 mg/dL (4-19) 12/21/24 11:11 12/21/24 Creatinine 0.75 mg/dL (0.70-1.20) 12/21/24 11:11 12/21/24 Glucose 88 mg/dL (70-99) 12/21/24 11:11 12/21/24 TSH 2.54 uIU/mL (0.358-3.74) 04/18/24 15:32 COAG HCG, Quant 3 mIU/mL (1-3) 04/02/24 11:53 04/02/24 Urine Test Negative Negative 02/26/25 07:35 02/26/25 Pre-Assessment Diagnosis/Proposed Procedure Planned Operative Procedure(s): COLONOSCOPY Anesthesia History 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 When Was Last Pacemaker Check QUESTION #4 FULL TEXT: You/Your Family Experience fever (hyperthermia) with Anesthesia Last Oral Intake Last Oral intake: Last Oral Intake NPO since 22:00 02/26/25 07:52 Meds taken in AM with sips of No 02/26/25 07:52 water? Meds patient instructed to take am of surgery PONV PONV - roll up guider operator: PONV - roll up guider operator Female Yes 02/22/25 09:23 HX of Motion Sickness No 02/22/25 09:23 HX of N/V After Surgery No 02/22/25 09:23 Non-Smoker No 02/22/25 09:23 Duration of Surgery greater No 02/22/25 09:23 than 60 minutes Number of Risk Factors 1 02/22/25 09:23 PONV Score Low Risk 02/22/25 09:23 Height & Weight Height & Weight: Anesthesia: Height & Weight Height 5 ft 02/26/25 07:52 Weight: 80 kg 02/26/25 07:52 Body Mass Index (BMI) 34.4 02/26/25 07:52 Respiratory Assessment Respiratory Assessment - roll up guider operator: Respiratory Tract Infection Hx - roll up guider operator Hx Respiratory Tract Infection No 02/26/25 07:36 STOP Sleep Apnea STOP Sleep Apnea - roll up guider operator: STOP Sleep Apnea - roll up guider operator Hx Hypertension No 02/26/25 07:36 Hx Sleep Apnea No 02/26/25 07:36 CPAP BIPAP Do you snore loudly (louder No 02/26/25 07:36 than talking or can be heard Do you often feel tired/ No 02/26/25 07:36 fatigued/ sleepy during daytime? Has anyone observed you stop No 02/26/25 07:36 breathing during sleep? STOP Results Negative 02/26/25 08:11 QUESTION #5 FULL TEXT : Do you snore loudly (louder than talking or can be heard through closed doors)? Tobacco Use History Tobacco Use History - roll up guider operator: Tobacco Use History - roll up guider operator Tobacco Use Smoking Status Current every day smoker 02/26/25 07:36 Hx Tobacco Use No 02/22/25 09:23 Years Smoking Packs Smoked per Day Smoking Cessation Date was within the last 15 years Hx Smoking Cessation Date Hx Smoking Cessation Counseling Any additional information?: Yes Tobacco Use: Vapor (Patient vaped today.) Hematologic Medial History Hematologic Hx - roll up guider operator: Hematologic Medical Hx - supervisor carding Hx of Blood Transfusion No 02/22/25 09:23 Hx of Transfusion in last 3 No 02/22/25 09:23 Months Date of Last Transfusion (if within last 3 months) Ever experience any problems No 02/22/25 09:23 with transfusion(s)? Specify any problems Hx of Preganancy in last 3 No 02/22/25 09:23 Months Nurse Filling Out Transfusion VCHRISTIN 02/22/25 09:23 & Questions: Date: 02/22/25 02/22/25 09:23 Time: 09:24 02/22/25 09:23 Patient unable to answer at this time (ie. confused, unrespo /Reproduction History /Reproductive History - roll up guider operator: /Reproductive Hx- roll up guider operator Hx Now No 02/26/25 07:36 Gestational Age (in weeks): EDC: Hx Hx Para Hx Section SAB No 02/22/25 09:23 Active Medications Active Medications: Current Medications Generic Name Dose Route Start Last Admin Trade Name Freq PRN Reason Stop Dose Admin Lactated Ringer's 1,000 mls @ 15 mls/hr 02/26/25 07:45 02/26/25 08:00 IV 15 mls/hr .Q48H MICHELE Administration PFSH Medical History Wears glasses Depression Anxiety Gastric reflux Heartburn Vapes nicotine containing substance Blood in stool Hemorrhoids Constipation Diarrhea ADD (attention deficit disorder) History of recurrent miscarriages Anxiety and depression 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 Asthma Home Medications ?Medication ?Instructions ?Recorded ?Last Taken ?Type albuterol sulfate 90 mcg/actuation 2 puff inhalation Q 6H PRN 11/13/24 Unknown Rx aerosol inhaler shortness of breath or wheez ing #8.5 grams hydrocortisone 2.5 % topical cream 1 applic OK BID-QID PRN 12/21/24 Unknown Rx with perineal applicator hemorrhoids #30 grams (Proctosol HC) Hydrocortisone 25mg/diltiazem 1 supp OTHER 2XD #30 sup p 02/01/25 Unknown Rx 10mg/lidocaine 50mg Allergy/AdvReac Type Severity Reaction Status Date / Time No Known Allergies Allergy Verified 02/26/25 07:51 Family History Grandmother Breast cancer Brother Anxiety Depression Grandmother Asthma Hypertension High cholesterol Father Asthma Arthritis Diabetes Hypertension Mother Arthritis Brother Myocardial infarction, Onset Age: 19 Heart disease Kidney disease Lung disease Grandfather Parkinson disease Surgical History No pertinent past surgical history Social History adopted: No household members: significant other housing: house number of children: 0 current occupational status: employed current occupation: [employer] sexually active: Yes Smoking Status: Current every day smoker tobacco type: e-cigarettes second hand exposure: Yes alcohol intake: former details: never a heavy drinker substance use type: does not use seatbelt use: always do you feel safe at home: Yes Review of Systems (Anesthesia) ROS Narrative System reviewed and no additional complaints, except as documented. Physical Exam Resp clear to auscultation bilaterally
--- NOTE | 2025-02-26 08:30 | COLBX_PTH ---
PATIENT: CHRISTINA FREIRE LOC: EN U#:[id number] AGE/SX: 25/F ROOM: RE02/26/[address]: Dr. Ladonna Bowers MD : 2000 BED: DIS: 02/26/2025 SPEC #: [id number] RECD: 02/26/25 10:42 STATUS: WENCESLAO REDenia #: [id number] SHANTEL: 02/26/25 08:[address]: Ladonna Bowers DEPT: SURGICAL PATHOLOGY RECD BY: Zan Dixon ENTERED: 02/26/25 11:31 SP TYPE: COLON BX OTHR DR: Dr. Ping Turner MD Tissues: A - Sigmoid colon biopsy Procedures: Surgery Specimen Level IV HEADER OPERATION: Colonoscopy with biopsy PRE-OP DIAGNOSIS: Blood in stool, anal fissure TISSUE SUBMITTED: A- Sigmoid colon polyp MICROSCOPIC DIAGNOSIS A. Sigmoid colon, polyp, biopsy: Tubular adenoma. MICROSCOPIC DESCRIPTION Slides are reviewed. GROSS DESCRIPTION A. Received in fixative is one container labeled with the patient's name and designated Sigmoid colon polyp. The specimen consists of four irregular fragments of light haines soft tissue that in aggregate measure 0.1 to 0.2 cm. The specimen is totally submitted in one cassette. CPT:55617 WV/mr 02/26/2025
--- NOTE | 2025-02-26 09:11 | OP.COLON_ITS ---
Patient Name: Brooklyn Zuniga Procedure Date: 02/26/2025 8:46 AM Date of : 2000 Age: 25 Procedure: Colonoscopy Indications: Rectal bleeding, Anal fissure Providers: Ladonna Bowers MD Referring MD: Ladonna Bowers MD Medicines: Monitored Anesthesia Care Patient Profile: This is a 25 year old female. Last Colonoscopy: none. The patient's first colonoscopy is today. Complications: No immediate complications. Procedure: Pre-Anesthesia Assessment: - Prior to the procedure, a History and Physical was performed, and patient medications and allergies were reviewed. The patient's tolerance of previous anesthesia was also reviewed. The risks and benefits of the procedure and the sedation options and risks were discussed with the patient. All questions were answered, and informed consent was obtained. Prior Anticoagulants: The patient has taken no anticoagulant or antiplatelet agents. ASA Grade Assessment: Per anesthesia. After reviewing the risks and benefits, the patient was deemed in satisfactory condition to undergo the procedure. After I obtained informed consent, the scope was passed under direct vision. Throughout the procedure, the patient's blood pressure, pulse, and oxygen saturations were monitored continuously. The Colonoscope was introduced through the anus and advanced to the cecum, identified by the appendiceal orifice, ileocecal valve and palpation. The colonoscopy was performed without difficulty. The patient tolerated the procedure well. The quality of the bowel preparation was good. Scope In: 8:53:47 AM Scope Withdrawal Time 0 hours 6 minutes 52 seconds Scope Out: 9:03:50 AM Total Procedure Duration Time 0 hours 10 minutes 3 seconds Findings: An anal fissure was found on perianal exam. A less than 5 mm polyp was found in the sigmoid colon. The polyp was semi-sessile. The polyp was removed with a hot snare. Resection and retrieval were complete. The exam was otherwise without abnormality on direct and retroflexion views. Anal fissure is healing Impression: - Anal fissure found on perianal exam. - One less than 5 mm polyp in the sigmoid colon, removed with a hot snare. Resected and retrieved. - The examination was otherwise normal on direct and retroflexion views. Recommendation: - Discharge patient to home. - Resume previous diet. - Continue present medications. - Await pathology results. - Repeat colonoscopy in 5-10 years for surveillance based on pathology results. Procedure Code(s): --- Professional --- 88764, Colonoscopy, flexible; with removal of tumor(s), polyp(s), or other lesion(s) by snare technique Diagnosis Code(s): --- Professional --- K60.2, Anal fissure, unspecified D12.5, Benign neoplasm of sigmoid colon K62.5, Hemorrhage of anus and rectum CPT copyright 2021 [employer]. All rights reserved. The codes documented in this report are preliminary and upon wheelage clerk review may be revised to meet current compliance requirements. MD Ladonna Villar MD 02/26/2025 9:10:21 AM This report has been signed electronically. Number of Addenda: 0 Note Initiated On: 02/26/2025 8:46 AM
--- NOTE | 2025-02-26 09:11 | OP.CCLET_ITS ---
02/26/2025 Ping Turner Md Re : Colonoscopy procedure for Brooklyn [place]ar [place] This procedure was performed on Wednesday, February 26, 2025. My impressions and recommendations are as follows: Impressions : - Anal fissure found on perianal exam. - One less than 5 mm polyp in the sigmoid colon, removed with a hot snare. Resected and retrieved. - The examination was otherwise normal on direct and retroflexion views. Recommendations : - Discharge patient to home. - Resume previous diet. - Continue present medications. - Await pathology results. - Repeat colonoscopy in 5-10 years for surveillance based on pathology results. My findings are described in the full procedure note, which is enclosed. If I can be of further assistance, please feel free to contact me at Doctor phone number(s): , Work: . Sincerely, MD Ladonna Villar MD 02/26/2025 9:10:21 AM This report has been signed electronically.
--- NOTE | 2025-02-26 09:14 | PCM.POST.ANE ---
Anesthesia: Postop Eval I Current Vital Signs Temperature: 97.1 F Pulse Rate: 74 Blood Pressure: 87/58 Respiratory Rate: 16 Pulse Ox: 97 Oxygen Delivery Method: Room Air Assessment Airway patent: Yes Spontaneous unlabored respirations: Yes Mental status: Asleep nausea: No Vomiting: No Anesthesia Complication: No Fluid Hydration Crystalloid volume administer (ml): 900 Total IV fluid infused: 900 Progress Note Anesthesia document: Postop Eval 1 completed: Yes
--- NOTE | 2025-02-26 12:32 | PCM.POSTANE2 ---
Anesthesia Postop Eval I Sum Postop Eval Completion status Anesthesia document: Postop Eval 1 completed: Yes Anesthesia Postop Eval I Summary Anesthesia Postop Eval I Summary: Anesthesia Postop Eval I: Assessment Summary Airway patent Yes 02/26/25 09:15 [email or web address] Spontaneous unlabored Yes 02/26/25 09:15 [email or web address] respirations Mental status Asleep 02/26/25 09:15 [email or web address] nausea No 02/26/25 09:15 [email or web address] Vomiting No 02/26/25 09:15 [email or web address] Anesthesia Postop Eval I: Fluid Summary Crystalloid volume administer 900 02/26/25 09:15 [email or web address] (ml) Colloids volume administered ( ml) Blood Product volume administered (ml) Total IV fluid infused 900 02/26/25 09:15 [email or web address] Anesthesia Postop Eval I: Summary Notes Anesthesia Complication No 02/26/25 09:15 [email or web address] Anesthesia Complication Comment: Post-operative progress note Anesthesia: Postop Eval II Evaluation Mental status: Awake and Calm Pain Level: 0 nausea: No Vomiting: No Complications Anesthesia Complication: No
== END 2025-02-26 10:02 | disposition home or self-care (01) ==
LOC: EN 07:21 → AC 07:22
PROVIDERS: Anesthesiology; PCP Internal Medicine; Referring Provider Internal Medicine; Visit Provider Surgery
PROC: 0DJD8ZZ Inspection of Lower Intestinal Tract, Via Natural or Artificial Opening Endoscopic (ICD-10-PCS; CPT 45378; principal; 2025-02-26 08:25)
DX: D12.5 Benign neoplasm of sigmoid colon (principal); F17.200 Nicotine dependence, unspecified, uncomplicated; K60.2 Anal fissure, unspecified; K21.9 Gastro-esophageal reflux disease without esophagitis; J45.909 Unspecified asthma, uncomplicated
CPT/HCPCS: 45385; 81025; 88305; J2405

== ENCOUNTER → 2025-06-11 | Outpatient (CLI) | payer MEDICAID, SELFPAY ==
[2025-06-11 12:31] LABS: Hematocrit 38.2 % (37-47); Hemoglobin 13.0 g/dL (12.0-15.0); Immature Granulocytes Count 0.040 X10^3/uL (0.0-0.0); Mean Corp Hgb Conc 34.0 g/dL (32-36); Mean Corpuscular Volume 85.7 fL (81-99); Mean Platelet Vol. 10.6 fl (6.2-12.0); NRBC Flagged by Analyzer 0 % (0-5); Platelet Count 374 K/mm3 (150-450); RBC Distribution Width CV 13.2 % (11.6-14.6); RBC Distribution Width SD 40.2 fl (35.1-43.9); Red Blood Count 4.46 M/mm3 (4.2-5.4); White Blood Count 10.0 K/mm3 (4.4-11.0)
[2025-06-13 15:08] LABS: Anti-Cardiolipin Ab, IgG, Qn < 9 GPL U/mL (0-14); Anti-Cardiolipin Ab, IgM, Qn 10 MPL U/mL (0-12); Beta-2-Glycoprotein I IgA <9 (0-25); Beta-2-Glycoprotein I IgG <9 (0-20); Beta-2-Glycoprotein I IgM <9 (0-32); Dilute Russell Viper Venom 42.4 sec (0.0-47.0); Interpretation Comment: (.); PTT-LA 40.7 sec (0.0-43.5)
== END | disposition home or self-care (01) ==
LOC: BWCLAB 11:11
PROVIDERS: PCP Internal Medicine; Referring Provider Obstetrics & Gynecology; Visit Provider Obstetrics & Gynecology
DX: N94.6 Dysmenorrhea, unspecified (principal); N96 Recurrent pregnancy loss; K62.5 Hemorrhage of anus and rectum
CPT/HCPCS: 36415; 83036; 84443; 85025; 86146; 86147

== ENCOUNTER → 2025-06-18 | Outpatient (CLI) | payer MEDICAID, SELFPAY ==
--- NOTE | 2025-06-18 16:06 | US_ITS ---
PROCEDURE: PELVIC W/ TRANSVAGINAL REASON FOR EXAM: DYSMENORRHEA TECHNIQUE: Procedure Code: [id number] Modality: US Procedure: PELVIC W/ TRANSVAGINAL COMPARISON: None FINDINGS: LMP: June 02, 2025. Measurements: Uterus: 9.3 cm x 5.1 cm x 3.7 cm with a volume of 93.5 mL Endometrial Thickness: 10 mm. It is hyperechoic. Right Ovary: 3.1 cm x 2.7 cm x 2.2 cm with a volume of 6.6 mL. Left Ovary: 2.6 cm x 2.1 cm x 1.9 cm with a volume of 5.2 mL. TRANSABDOMINAL: Uterus: Normal size, myometrial echotexture, and contour. Endometrium: Unremarkable. Right ovary: Dominant follicle seen within the right ovary measuring 1.7 cm 1.7 cm 1.6 cm. Left ovary: Normal size and echotexture. Other: No large pelvic mass identified. Transvaginal sonography was performed to better visualize the endometrium. TRANSVAGINAL: Uterus: Anteverted. Normal contour and myometrial echotexture. Endometrium: Normal echotexture. Right ovary: Dominant follicle measuring 1.7 cm 1.7 cm 1.6 cm. Left ovary: Normal size and echotexture. Other adnexal findings: None. Cul-de-sac: Minimal free fluid in the pelvis within normal limits. Tenderness: No tenderness US/Pelvic w/ Transvaginal IMPRESSION: Dominant follicle is seen in the right ovary. Mild amount of free fluid in the cul-de-sac. Reading Location: [facility]
== END | disposition home or self-care (01) ==
LOC: US 16:03
PROVIDERS: PCP Internal Medicine; Referring Provider Obstetrics & Gynecology; Visit Provider Obstetrics & Gynecology
DX: N94.6 Dysmenorrhea, unspecified (principal); N96 Recurrent pregnancy loss
CPT/HCPCS: 76830; 76856